=== PATIENT | male | born 2000 | race Caucasian/White ===

== ENCOUNTER 2019-04-28 19:45 | Emergency (ER) | payer OTHER ==
[2019-04-28 19:52] VITALS: PULSE 68; TEMP 97.7
[2019-04-28] MEDS ORDERED: PROPARACAINE 0.5% OPHTH DROPS 15 ML BTL RIGHT EYE STA (19:53)
[2019-04-28] MEDS ORDERED: GENTAMICIN 0.3% OPHTH DROPS 5 ML BTL LEFT EYE STA (20:32)
[2019-04-28] MEDS ORDERED: DIPH,PERTUS(ACELL)TETVAC-LF 0.5 ML VIAL IM ONE (20:32)
--- NOTE | 2019-04-28 21:03 | ED ---
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 Patient force that yesterday after work he began to feel that he had a foreign object sensation in his eye. Patient flushed his eye. His been rubbing it. Patient reports that his eye is red and irritated. Full vaccinated. Not a contact lens user. Denies any other complaints. Systemic: Pt denies fatigue, fever/chills, rash. Pt denies weakness, night sweats, weight loss. Neuro: Pt denies headache, visual disturbances, syncope or pre-syncope. HEENT: Pt denies otalgia, rhinorrhea, pharyngitis or notable lymphadenopathy. Cardiopulmonary: Pt denies chest pain, SOB, heart palpitations, dyspnea on exertion. Abdominal/GI: Pt denies abdominal pain, n/v/d. : Pt denies dysuria, burning w/ urination, frequency/urgency. Denies new onset urinary or bowel incontinence. MSK: Pt denies myalgia, loss of strength or function in extremities. Neuro: Pt denies new onset weakness, paresthesias. - Related Data Previous Rx's Medication Instructions Recorded Gentamicin 0.3% Ophth Soln 2 drops LEFT EYE Q4HR 5 Days #1 04/28/19 [Garamycin 0.3% Ophth Soln] bottle Allergies Allergy/AdvReac Type Severity Reaction Status Date / Time amphetamine aspartate AdvReac Unknown Verified 10/04/15 23:51 [From Adderall] amphetamine sulfate AdvReac Unknown Verified 10/04/15 23:51 [From Adderall] dextroamphetamine saccharate AdvReac Unknown Verified 10/04/15 23:51 [From Adderall] dextroamphetamine sulfate AdvReac Unknown Verified 10/04/15 23:51 [From Adderall] Review of Systems ROS Statement: Those systems with pertinent positive or pertinent negative responses have been documented in the HPI. ROS Other: All systems not noted in ROS Statement are negative. 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 HEENT: NC/AT, trachea midline, neck supple, no lymphadenopathy. Posterior pharynx non erythematous, without exudates. External ears appear normal, without discharge. Mucous membranes moist. Eyes PERRLA, EOM intact. There is no scleral icterus. No pallor noted. Intraocular pressure of right eye average of 24. Intraocular pressure of left eye average of 16./The same revealed a small corneal ulceration at approximately 3:00. No foreign body noted. Cardiopulmonary: RRR, no murmurs, rubs or gallops, no JVD noted. Lungs CTAB in anterior and posterior henry. No peripheral edema. Abdominal exam: Abdomen soft and non-distended. Abdomen non-tender to palpation in all 4 quadrants. Bowel sounds active in LLQ. No hepatosplenomegaly. No ecchymosis Neuro: CN II-XII grossly intact. No nuchal rigidity. No raccon eyes, no freitas sign, no hemotympanum. No cervical spinal tenderness. MSK: No posterior calf tenderness bilaterally, homans sign negative bilaterally. Posterior tibialis and radial pulse +2 bilaterally. Sensation intact in upper and lower extremities. Full active ROM in upper and lower extremities, 5/5 stregnth. 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 Patient force that yesterday after work he began to feel that he had a foreign object sensation in his eye. Patient flushed his eye. His been rubbing it. Patient reports that his eye is red and irritated. Full vaccinated. Not a contact lens user. Denies any other complaints. Pt VSS, afebrile. PHysical exam displayed: ntraocular pressure of right eye average of 24. Intraocular pressure of left eye average of 16./The same revealed a small corneal ulceration at approximately 3:00. No foreign body noted. Patient will be started on gentamicin drops. Patient states the visual acuity is at baseline. We'll close outpatient follow-up with ophthalmology tomorrow. Case discussed with Dr. Palomares. tetanus updated. Disposition Clinical Impression: Corneal ulcer, Elevated IOP Disposition: HOME SELF-CARE Condition: Stable Instructions (If sedation given, give patient instructions): Corneal Ulcer (ED) Additional Instructions: Follow-up with ophthalmology tomorrow. Take eye drops as directed. Return to ER if condition worsens in any way. Prescriptions: Gentamicin 0.3% Ophth Soln [Garamycin 0.3% Ophth Soln] 2 drops LEFT EYE Q4HR 5 Days #1 bottle Is patient prescribed a controlled substance at d/c from ED?: No Referrals: None,Stated [Primary Care Provider] - 1-2 days Christiana Carlos MD [STAFF PHYSICIAN] - 1-2 days
[2019-04-28 21:23] VITALS: BP 126/89; RESP 16
== END 2019-04-28 21:23 | disposition home or self-care (01) ==
LOC: EC 19:45
DX: H16.002 Unspecified corneal ulcer, left eye (principal); H40.052 Ocular hypertension, left eye; Z88.8 Allergy status to other drugs, medicaments and biological substances; Z23 Encounter for immunization
CPT/HCPCS: 90471; 90715; 99283

== ENCOUNTER 2019-09-10 | Emergency (ER) | payer OTHER | END 2019-09-10 09:08 | disposition home or self-care (01) | CPT/HCPCS: 71046; 99284 ==

== ENCOUNTER 2020-05-20 00:13 | Emergency (ER) | payer OTHER ==
[2020-05-20 00:25] VITALS: BP 111/76; PULSE 76; RESP 18; TEMP 98.1
[2020-05-20 00:39] LABS: Glucose,Whole Blood 300 mg/dL (75-99)
--- NOTE | 2020-05-20 00:39 | ED ---
Medical Clearance HPI - General Chief complaint: Medical Clearance Stated complaint: Needs medical clearence Time Seen by Provider: 05/20/20 00:28 Source: patient, RN notes reviewed, old records reviewed Mode of arrival: ambulatory - History of Present Illness Initial comments: 20-year-old male who is a type I diabetic presents emergency room today to urinate needing a note to return to work. He had a hypoglycemic episode. He reports this happened on when he was sweating and recently gave himself insulin injection. 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 He states that he's been diabetic for many years. He states that he is having no symptoms of any complaints at this time and just requests a note to return to work. MD Complaint: medical clearance requested Home medications: Previous Rx's Medication Instructions Recorded Gentamicin 0.3% Ophth Soln 2 drops LEFT EYE Q4HR 5 Days #1 04/28/19 [Garamycin 0.3% Ophth Soln] bottle Allergies/Adverse reactions: Allergies Allergy/AdvReac Type Severity Reaction Status Date / Time amphetamine aspartate AdvReac Unknown Verified 05/20/20 00:25 [From Adderall] amphetamine sulfate AdvReac Unknown Verified 05/20/20 00:25 [From Adderall] dextroamphetamine saccharate AdvReac Unknown Verified 05/20/20 00:25 [From Adderall] dextroamphetamine sulfate AdvReac Unknown Verified 05/20/20 00:25 [From Adderall] Review of Systems ROS Statement: Those systems with pertinent positive or pertinent negative responses have been documented in the HPI. ROS Other: All systems not noted in ROS Statement are negative. Past Medical History Past Medical History: Diabetes Mellitus Additional Past Medical History / Comment(s): hydro cephalous History of Any Multi-Drug Resistant Organisms: None Reported Past Surgical History: No Surgical Hx Reported Past Psychological History: ADD/ADHD Smoking Status: Never smoker Past Alcohol Use History: None Reported Past Drug Use History: None Reported General Exam - General Exam Comments Initial Comments: Pleasant well-appearing 20-year-old male. No distress. Limitations: no limitations General appearance: alert, in no apparent distress Head exam: Present: atraumatic, normocephalic, normal inspection Eye exam: Present: normal appearance, PERRL, EOMI. Absent: scleral icterus, conjunctival injection, periorbital swelling ENT exam: Present: normal exam, mucous membranes moist Neck exam: Present: normal inspection. Absent: tenderness, meningismus, lymphadenopathy Respiratory exam: Present: normal lung sounds bilaterally. Absent: respiratory distress, wheezes, rales, rhonchi, stridor Cardiovascular Exam: Present: regular rate, normal rhythm, normal heart sounds. Absent: systolic murmur, diastolic murmur, rubs, gallop, clicks GI/Abdominal exam: Present: soft, normal bowel sounds. Absent: distended, tenderness, guarding, rebound, rigid Extremities exam: Present: normal inspection, full ROM, normal capillary refill. Absent: tenderness, pedal edema, joint swelling, calf tenderness Back exam: Present: normal inspection Neurological exam: Present: alert, oriented X3, CN II-XII intact Psychiatric exam: Present: normal affect Skin exam: Present: warm, dry, intact, normal color. Absent: rash Course Vital Signs 05/20/20 00:20 Temperature 98.1 F Pulse Rate 76 Respiratory 18 Rate Blood Pressure 111/76 O2 Sat by Pulse 98 Oximetry Medical Decision Making - Medical Decision Making 20-year-old male presents return today for medical clearance. He had a hypoglycemic episode on . No symptoms at this time. Patient given note for work. Advised regular glucose checks and frequent stacking with a strenuous job. Discussed return parameters. - Lab Data Lab Results 05/20/20 Range/Units 00:27 POC Glucose (mg/dL) 300 H (75-99) mg/dL POC Glu Under Trimmer ID Annia Guzman Disposition Clinical Impression: Hypoglycemic episode in patient with diabetes mellitus, Return to work exam Disposition: HOME SELF-CARE Condition: Good Instructions (If sedation given, give patient instructions): Hypoglycemia in a Person with Diabetes (ED) Additional Instructions: Recommended following up with primary care doctor to manage her blood sugar and insulin dosing. He should have your A1c checked. Return to the ED if any alarming signs or symptoms occur. Is patient prescribed a controlled substance at d/c from ED?: No Referrals: None,Stated [Primary Care Provider] - 1-2 days Kwabena Nathan [STAFF PHYSICIAN] - 1-2 days Time of Disposition: 00:39
== END 2020-05-20 00:45 | disposition home or self-care (01) ==
LOC: EC 00:13
DX: Z02.1 Encounter for pre-employment examination (principal); E10.649 Type 1 diabetes mellitus with hypoglycemia without coma; Z88.8 Allergy status to other drugs, medicaments and biological substances
CPT/HCPCS: 36415; 99283

== ENCOUNTER 2020-06-01 13:46 | Emergency (ER) | payer OTHER ==
[2020-06-01 13:52] VITALS: BP 132/82; PULSE 103; RESP 20; TEMP 99.3
[2020-06-01] MEDS ORDERED: KETOROLAC 15 MG/ML 1 ML VIAL IM STA (14:31)
[2020-06-01] MEDS ORDERED: PENICILLIN VK 500MG STARTER 4 TAB BTL PO STA (14:31)
[2020-06-01] MEDS ORDERED: ACET/COD 300 MG/30 MG STARTER PACK 6 TAB BTL PO STA (14:31)
--- NOTE | 2020-06-01 14:32 | ED ---
ENT HPI - General Chief complaint: Dental/Oral Stated complaint: Fever,Chills,Body aches Time Seen by Provider: 06/01/20 14:25 Source: patient Mode of arrival: ambulatory Limitations: no limitations - History of Present Illness Initial comments: 20-year-old male patient presents to the emergency department today for evaluation of right lower dental pain and jaw swelling. States he has had fever and body aches since yesterday morning. States his temperature has been as high as 100.3F oral. Patient states he has very poor dentition. Does not currently have dental insurance her medical insurance. Patient denies any cough or congestion. Denies any nausea or vomiting. Denies trismus or difficulty swallowing. Patient denies any recent rash, chest pain, abdominal pain, diarrhea, constipation, back pain, numbness, tingling, dizziness, weakness, hematuria, dysuria, urinary urgency, urinary frequency, headache, visual changes, or any other complaints. - Related Data Previous Rx's Medication Instructions Recorded Gentamicin 0.3% Ophth Soln 2 drops LEFT EYE Q4HR 5 Days #1 04/28/19 [Garamycin 0.3% Ophth Soln] bottle Ibuprofen [Motrin] 600 mg PO Q8HR PRN #30 tab 06/01/20 Penicillin V Potassium [Pen Vee K] 500 mg PO Q6H #40 tablet 06/01/20 Allergies Allergy/AdvReac Type Severity Reaction Status Date / Time amphetamine aspartate AdvReac Unknown Verified 06/01/20 13:52 [From Adderall] amphetamine sulfate AdvReac Unknown Verified 06/01/20 13:52 [From Adderall] dextroamphetamine saccharate AdvReac Unknown Verified 06/01/20 13:52 [From Adderall] dextroamphetamine sulfate AdvReac Unknown Verified 06/01/20 13:52 [From Adderall] Review of Systems ROS Statement: Those systems with pertinent positive or pertinent negative responses have been documented in the HPI. ROS Other: All systems not noted in ROS Statement are negative. Past Medical History Past Medical History: Diabetes Mellitus Additional Past Medical History / Comment(s): hydro cephalous History of Any Multi-Drug Resistant Organisms: None Reported Past Surgical History: No Surgical Hx Reported Past Psychological History: ADD/ADHD Smoking Status: Never smoker Past Alcohol Use History: None Reported Past Drug Use History: None Reported General Exam Limitations: no limitations General appearance: alert, in no apparent distress, other (This is a well- developed, well-nourished adult male patient in no acute distress. Vital signs upon presentation are temperature 99.3F, pulse 103, respirations 20, blood pressure 132/82, pulse ox 99% on room air.) Eye exam: Present: normal appearance, PERRL, EOMI. Absent: scleral icterus, conjunctival injection, periorbital swelling ENT exam: Present: normal exam, normal oropharynx, mucous membranes moist, other (There is very poor dentition, there is dental caries extensively, no evidence for drainable abscess to the right lower dentition. There is right-sided jaw swelling. No overlying erythema.) Respiratory exam: Present: normal lung sounds bilaterally. Absent: respiratory distress, wheezes, rales, rhonchi, stridor Cardiovascular Exam: Present: regular rate, normal rhythm, normal heart sounds. Absent: systolic murmur, diastolic murmur, rubs, gallop, clicks Neurological exam: Present: alert, oriented X3, CN II-XII intact Psychiatric exam: Present: normal affect, normal mood Skin exam: Present: warm, dry, intact, normal color. Absent: rash Course Vital Signs 06/01/20 13:50 Temperature 99.3 F Pulse Rate 103 H Respiratory 20 Rate Blood Pressure 132/82 O2 Sat by Pulse 99 Oximetry Medical Decision Making - Medical Decision Making 20-year-old male patient presented to the emergency department today for evaluation of right lower jaw swelling and dental pain. Physical examination did reveal swelling to the lower aspect of the right jaw. Does not cross the submental region. No evidence of drainable abscess. No overlying erythema. Patient be discharged with PENVK since he doesn't currently have insurance. He'll be given Tylenol with codeine starter pack. He was given outpatient dental follow-up for lower no insurance. He is instructed about the primary care physician as soon as possible. Return parameters discussed in detail. He verbalizes understanding and agrees with this plan. Disposition Clinical Impression: Dental abscess Disposition: HOME SELF-CARE Condition: Good Instructions (If sedation given, give patient instructions): Dental Abscess (ED), Toothache (ED) Additional Instructions: Take medications as directed. Follow-up with dentistry as soon as possible. Return to the emergency department for any new, worsening, or concerning symptoms. Please follow up with the [facility] dental clinic. [address] [place] [address]. Phone number for new patients or [phone] for existing patients. [facility]. Must pay for x-rays then services are free. Call for an appoitnment. Prescriptions: Ibuprofen [Motrin] 600 mg PO Q8HR PRN #30 tab PRN Reason: Pain Penicillin V Potassium [Pen Vee K] 500 mg PO Q6H #40 tablet Is patient prescribed a controlled substance at d/c from ED?: No Referrals: None,Stated [Primary Care Provider] - 1-2 days Time of Disposition: 14:32
== END 2020-06-01 14:58 | disposition home or self-care (01) ==
LOC: EC 13:46
DX: K04.7 Periapical abscess without sinus (principal); E11.9 Type 2 diabetes mellitus without complications; Z88.8 Allergy status to other drugs, medicaments and biological substances
CPT/HCPCS: 99283; 96372; J1885

== ENCOUNTER 2020-11-30 05:50 | Emergency (ER) | payer OTHER ==
[2020-11-30 06:01] LABS: Glucose,Whole Blood 99 mg/dL (75-99)
[2020-11-30 06:05] VITALS: RESP 18; TEMP 98
--- NOTE | 2020-11-30 06:29 | ED ---
General Adult HPI - General Chief complaint: Seizure Stated complaint: Seizure Time Seen by Provider: 11/30/20 06:08 Source: patient, EMS, RN notes reviewed Mode of arrival: EMS Limitations: no limitations - History of Present Illness Initial comments: This a 20-year-old male presents emergency department via EMS for possible seizure. Patient states that he was not aware of anything. Report from his significant other on the phone states that he was not waking up for work in which she checked his blood sugar and was 51. She attempted to given some candy and he eventually woke up from his blood sugar was 87. There is no tonic-clonic type seizure activity reported. Patient states that he had some similar episode in month or so ago. Patient does admit that he took his insulin last night did not eat dinner. Patient has known type I diabetic. Patient denies headache dizziness blurred vision. We discussed pain shortness breath abdominal pain nausea vomiting diarrhea constipation - Related Data Previous Rx's Medication Instructions Recorded Gentamicin 0.3% Ophth Soln 2 drops LEFT EYE Q4HR 5 Days #1 04/28/19 [Garamycin 0.3% Ophth Soln] bottle Ibuprofen [Motrin] 600 mg PO Q8HR PRN #30 tab 06/01/20 Penicillin V Potassium [Pen Vee K] 500 mg PO Q6H #40 tablet 06/01/20 Allergies Allergy/AdvReac Type Severity Reaction Status Date / Time amphetamine aspartate AdvReac Unknown Verified 11/30/20 06:05 [From Adderall] amphetamine sulfate AdvReac Unknown Verified 11/30/20 06:05 [From Adderall] dextroamphetamine saccharate AdvReac Unknown Verified 11/30/20 06:05 [From Adderall] dextroamphetamine sulfate AdvReac Unknown Verified 11/30/20 06:05 [From Adderall] Review of Systems ROS Statement: Those systems with pertinent positive or pertinent negative responses have been documented in the HPI. ROS Other: All systems not noted in ROS Statement are negative. 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 Absent: scleral icterus, conjunctival injection, periorbital swelling ENT exam: Present: normal exam, normal oropharynx, mucous membranes moist Neck exam: Present: normal inspection, full ROM. Absent: tenderness, meningismus, lymphadenopathy Respiratory exam: Present: normal lung sounds bilaterally. Absent: respiratory distress, wheezes, rales, rhonchi, stridor Cardiovascular Exam: Present: regular rate, normal rhythm, normal heart sounds. Absent: systolic murmur, diastolic murmur, rubs, gallop, clicks GI/Abdominal exam: Present: soft, normal bowel sounds. Absent: distended, tenderness, guarding, rebound, rigid Neurological exam: Present: alert, oriented X3, CN II-XII intact, reflexes normal. Absent: motor sensory deficit Course Vital Signs 11/30/20 05:54 Temperature 98.0 F Pulse Rate 93 Respiratory 18 Rate Blood Pressure 133/90 O2 Sat by Pulse 96 Oximetry Medical Decision Making - Medical Decision Making Patient's labs are unremarkable. Patient did have a hypoglycemic event at home there is no reported seizure like activity most likely related to hypoglycemia patient we discharged stable condition. Patient advised to continue check his blood sugar advised to make sure he eats before taking insulin. - Lab Data Result diagrams: 11/30/20 06:35 11/30/20 06:35 Lab Results 11/30/20 11/30/20 11/30/20 Range/Units 06:00 06:35 06:35 WBC 7.4 (3.8-10.6) k/uL RBC 4.66 (4.30-5.90) m/uL Hgb 13.5 (13.0-17.5) gm/dL Hct 41.5 (39.0-53.0) % MCV 89.0 (80.0-100.0) fL MCH 28.9 (25.0-35.0) pg MCHC 32.4 (31.0-37.0) g/dL RDW 13.2 (11.5-15.5) % Plt Count 428 (150-450) k/uL MPV 7.4 Neutrophils % 66 % Lymphocytes % 20 % Monocytes % 10 % Eosinophils % 1 % Basophils % 1 % Neutrophils # 4.9 (1.3-7.7) k/uL Lymphocytes # 1.5 (1.0-4.8) k/uL Monocytes # 0.7 (0-1.0) k/uL Eosinophils # 0.1 (0-0.7) k/uL Basophils # 0.1 (0-0.2) k/uL Sodium 132 L (137-145) mmol/L Potassium 3.9 (3.5-5.1) mmol/L Chloride 98 (98-107) mmol/L Carbon Dioxide 27 (22-30) mmol/L Anion Gap 7 mmol/L BUN 13 (9-20) mg/dL Creatinine 0.72 (0.66-1.25) mg/dL Est GFR (CKD-EPI)AfAm >90 (>60 ml/min/1.73 sqM) Est GFR (CKD-EPI)NonAf >90 (>60 ml/min/1.73 sqM) Glucose 96 (74-99) mg/dL POC Glucose (mg/dL) 99 (75-99) mg/dL POC Glu Full Fashioned Garment Knitter ID Jonely, Estela Calcium 9.3 (8.4-10.2) mg/dL Total Bilirubin 0.5 (0.2-1.3) mg/dL AST 30 (17-59) U/L ALT 16 (4-49) U/L Alkaline Phosphatase 104 (38-126) U/L Total Protein 6.8 (6.3-8.2) g/dL Albumin 4.2 (3.5-5.0) g/dL Disposition Clinical Impression: Hypoglycemia Disposition: HOME SELF-CARE Condition: Stable Instructions (If sedation given, give patient instructions): Hypoglycemia in a Person with Diabetes (ED) Additional Instructions: Please return to the Emergency Department if symptoms worsen or any other concerns. Is patient prescribed a controlled substance at d/c from ED?: No Referrals: None,Stated [Primary Care Provider] - 1-2 days Time of Disposition: 07:12
[2020-11-30 06:49] LABS: Basophils # (A) 0.1 k/uL (0-0.2); Basophils % (A) 1 %; Eosinophils # (A) 0.1 k/uL (0-0.7); Eosinophils % (A) 1 %; HCT 41.5 % (39.0-53.0); HGB 13.5 gm/dL (13.0-17.5); Lymphocytes # (A) 1.5 k/uL (1.0-4.8); Lymphocytes % (A) 20 %; MCH 28.9 pg (25.0-35.0); MCHC 32.4 g/dL (31.0-37.0); Mean Platelet Volume 7.4; Monocytes # (A) 0.7 k/uL (0-1.0); Monocytes % (A) 10 %; Neutrophils # (A) 4.9 k/uL (1.3-7.7); Neutrophils % (A) 66 %; Platelet Count 428 k/uL (150-450); RBC 4.66 m/uL (4.30-5.90); RDW 13.2 % (11.5-15.5); WBC 7.4 k/uL (3.8-10.6)
--- NOTE | 2020-11-30 07:02 | XR ---
EXAMINATION TYPE: XR chest 2V DATE OF EXAM: 11/30/2020 COMPARISON: 09/10/2019 HISTORY: Shortness of breath TECHNIQUE: Frontal and lateral views of the chest are obtained. FINDINGS: There is no focal air space opacity, pleural effusion, or pneumothorax seen. The cardiac silhouette size is within normal limits. The osseous structures are intact. IMPRESSION: No acute cardiopulmonary process.
[2020-11-30 07:04] LABS: ALT 16 U/L (4-49); AST 30 U/L (17-59); African American GFR (CKD) >90 (>60 ml/min/1.73 sqM); Albumin 4.2 g/dL (3.5-5.0); Alkaline Phosphatase 104 U/L (38-126); Anion Gap 7 mmol/L; Blood Urea Nitrogen 13 mg/dL (9-20); Calcium 9.3 mg/dL (8.4-10.2); Carbon Dioxide 27 mmol/L (22-30); Chloride 98 mmol/L (98-107); Glucose 96 mg/dL (74-99); Non-African American GFR(CKD) >90 (>60 ml/min/1.73 sqM); Potassium 3.9 mmol/L (3.5-5.1); Sodium 132 mmol/L (137-145); Total Bilirubin 0.5 mg/dL (0.2-1.3); Total Protein 6.8 g/dL (6.3-8.2)
[2020-11-30 07:24] VITALS: BP 108/75; PULSE 71
== END 2020-11-30 07:25 | disposition home or self-care (01) ==
LOC: EC 05:50
DX: E10.649 Type 1 diabetes mellitus with hypoglycemia without coma (principal)
CPT/HCPCS: 36415; 71046; 80053; 85025; 99285

== ENCOUNTER 2020-12-02 19:41 | Emergency (ER) | payer OTHER ==
[2020-12-02 20:47] VITALS: RESP 18
[2020-12-02] MEDS ORDERED: SODIUM CHLORIDE 0.9% 2,000 ML IV ONE (20:47)
[2020-12-02] MEDS ORDERED: INSULIN REGULAR 100 UNIT/ML VIAL (IV) IV ONE (20:48)
[2020-12-02 20:51] LABS: Glucose,Whole Blood >600 mg/dL (75-99)
--- NOTE | 2020-12-02 21:30 | ED ---
General Adult HPI - General Chief complaint: Recheck/Abnormal Lab/Rx Stated complaint: Needs insulin Time Seen by Provider: 12/02/20 20:42 Source: patient, RN notes reviewed Mode of arrival: ambulatory Limitations: no limitations - History of Present Illness Initial comments: 20-year-old male presents emergency Department with chief complaint of needing insulin, hyperglycemia. Patient states that he ran insulin today states he did drink a fair she no and does not take any insulin. Patient denies any nausea vomiting diarrhea constipation or fevers or chills. Patient states he otherwise feels fine. He takes long-acting and short-acting. Patient states he is supposed to have an appointment this week with his PCP. - Related Data Previous Rx's Medication Instructions Recorded Gentamicin 0.3% Ophth Soln 2 drops LEFT EYE Q4HR 5 Days #1 04/28/19 [Garamycin 0.3% Ophth Soln] bottle Ibuprofen [Motrin] 600 mg PO Q8HR PRN #30 tab 06/01/20 Penicillin V Potassium [Pen Vee K] 500 mg PO Q6H #40 tablet 06/01/20 Insulin Glargine,Hum.rec.anlog 12 unit SQ DAILY #3 pen 12/02/20 [Lantus Solostar] Insulin NPH Human Isophane See Protocol SQ AC-TID #3 vial 12/02/20 [NovoLIN N] Allergies Allergy/AdvReac Type Severity Reaction Status Date / Time amphetamine aspartate AdvReac Unknown Verified 12/02/20 20:47 [From Adderall] amphetamine sulfate AdvReac Unknown Verified 12/02/20 20:47 [From Adderall] dextroamphetamine saccharate AdvReac Unknown Verified 12/02/20 20:47 [From Adderall] dextroamphetamine sulfate AdvReac Unknown Verified 12/02/20 20:47 [From Adderall] Review of Systems ROS Statement: Those systems with pertinent positive or pertinent negative responses have been documented in the HPI. ROS Other: All systems not noted in ROS Statement are negative. 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 Absent: scleral icterus, conjunctival injection, periorbital swelling ENT exam: Present: normal exam, normal oropharynx, mucous membranes moist Neck exam: Present: normal inspection, full ROM. Absent: tenderness, meningismus, lymphadenopathy Respiratory exam: Present: normal lung sounds bilaterally. Absent: respiratory distress, wheezes, rales, rhonchi, stridor Cardiovascular Exam: Present: regular rate, normal rhythm, normal heart sounds. Absent: systolic murmur, diastolic murmur, rubs, gallop, clicks GI/Abdominal exam: Present: soft, normal bowel sounds. Absent: distended, tenderness, guarding, rebound, rigid Neurological exam: Present: alert Skin exam: Present: warm, dry, intact, normal color. Absent: rash Course Vital Signs 12/02/20 20:44 Temperature 98.2 F Pulse Rate 70 Respiratory 18 Rate Blood Pressure 132/74 O2 Sat by Pulse 99 Oximetry Medical Decision Making - Medical Decision Making 20-year-old presented for hyperglycemia. Patient ran out of his insulin. Patient provided refills. Return parameters were discussed. Patient did have hyperglycemia which was corrected - Lab Data Result diagrams: 12/02/20 Unknown 12/02/20 Unknown Lab Results 12/02/20 12/02/20 12/02/20 Range/Units 20:46 22:23 Unknown WBC 9.1 (3.8-10.6) k/uL RBC 4.62 (4.30-5.90) m/uL Hgb 14.0 (13.0-17.5) gm/dL Hct 42.0 (39.0-53.0) % MCV 90.9 (80.0-100.0) fL MCH 30.2 (25.0-35.0) pg MCHC 33.2 (31.0-37.0) g/dL RDW 12.6 (11.5-15.5) % Plt Count 371 (150-450) k/uL MPV 7.1 Neutrophils % 67 % Lymphocytes % 21 % Monocytes % 7 % Eosinophils % 3 % Basophils % 1 % Neutrophils # 6.1 (1.3-7.7) k/uL Lymphocytes # 1.9 (1.0-4.8) k/uL Monocytes # 0.7 (0-1.0) k/uL Eosinophils # 0.2 (0-0.7) k/uL Basophils # 0.1 (0-0.2) k/uL VBG pH (7.31-7.41) VBG pCO2 (37-51) mmHg VBG HCO3 (24-28) mmol/L Sodium (137-145) mmol/L Potassium (3.5-5.1) mmol/L Chloride (98-107) mmol/L Carbon Dioxide (22-30) mmol/L Anion Gap mmol/L BUN (9-20) mg/dL Creatinine (0.66-1.25) mg/dL Est GFR (CKD-EPI)AfAm (>60 ml/min/1.73 sqM) Est GFR (CKD-EPI)NonAf (>60 ml/min/1.73 sqM) Glucose (74-99) mg/dL POC Glucose (mg/dL) >600 H 113 H (75-99) mg/dL POC Glu Gluten Settling Tender ID Delmar, Guillaume Foreman Plasma Lactic Acid Bakari (0.7-2.0) mmol/L Calcium (8.4-10.2) mg/dL Total Bilirubin (0.2-1.3) mg/dL AST (17-59) U/L ALT (4-49) U/L Alkaline Phosphatase (38-126) U/L Total Protein (6.3-8.2) g/dL Albumin (3.5-5.0) g/dL Lipase (23-300) U/L Urine Color Urine Appearance (Clear) Urine pH (5.0-8.0) Ur Specific [place] (1.001-1.035) Urine Protein (Negative) Urine Glucose (UA) (Negative) Urine Ketones (Negative) Urine Blood (Negative) Urine Nitrite (Negative) Urine Bilirubin (Negative) Urine Urobilinogen (<2.0) mg/dL Ur Leukocyte Esterase (Negative) Acetone, Qual (Negative) 12/02/20 12/02/20 12/02/20 Range/Units Unknown Unknown Unknown WBC (3.8-10.6) k/uL RBC (4.30-5.90) m/uL Hgb (13.0-17.5) gm/dL Hct (39.0-53.0) % MCV (80.0-100.0) fL MCH (25.0-35.0) pg MCHC (31.0-37.0) g/dL RDW (11.5-15.5) % Plt Count (150-450) k/uL MPV Neutrophils % % Lymphocytes % % Monocytes % % Eosinophils % % Basophils % % Neutrophils # (1.3-7.7) k/uL Lymphocytes # (1.0-4.8) k/uL Monocytes # (0-1.0) k/uL Eosinophils # (0-0.7) k/uL Basophils # (0-0.2) k/uL VBG pH 7.42 H (7.31-7.41) VBG pCO2 38 (37-51) mmHg VBG HCO3 25 (24-28) mmol/L Sodium 126 L (137-145) mmol/L Potassium 5.1 (3.5-5.1) mmol/L Chloride 92 L (98-107) mmol/L Carbon Dioxide 26 (22-30) mmol/L Anion Gap 8 mmol/L BUN 10 (9-20) mg/dL Creatinine 0.83 (0.66-1.25) mg/dL Est GFR (CKD-EPI)AfAm >90 (>60 ml/min/1.73 sqM) Est GFR (CKD-EPI)NonAf >90 (>60 ml/min/1.73 sqM) Glucose 593 H* (74-99) mg/dL POC Glucose (mg/dL) (75-99) mg/dL POC Glu Gluten Settling Tender ID Plasma Lactic Acid Bakari (0.7-2.0) mmol/L Calcium 9.7 (8.4-10.2) mg/dL Total Bilirubin 0.4 (0.2-1.3) mg/dL AST 34 (17-59) U/L ALT 19 (4-49) U/L Alkaline Phosphatase 136 H (38-126) U/L Total Protein 7.0 (6.3-8.2) g/dL Albumin 4.5 (3.5-5.0) g/dL Lipase 100 (23-300) U/L Urine Color Colorless Urine Appearance Clear (Clear) Urine pH 7.0 (5.0-8.0) Ur Specific [place] 1.020 (1.001-1.035) Urine Protein Negative (Negative) Urine Glucose (UA) 4+ H (Negative) Urine Ketones Negative (Negative) Urine Blood Negative (Negative) Urine Nitrite Negative (Negative) Urine Bilirubin Negative (Negative) Urine Urobilinogen <2.0 (<2.0) mg/dL Ur Leukocyte Esterase Negative (Negative) Acetone, Qual Negative (Negative) 12/02/20 Range/Units Unknown WBC (3.8-10.6) k/uL RBC (4.30-5.90) m/uL Hgb (13.0-17.5) gm/dL Hct (39.0-53.0) % MCV (80.0-100.0) fL MCH (25.0-35.0) pg MCHC (31.0-37.0) g/dL RDW (11.5-15.5) % Plt Count (150-450) k/uL MPV Neutrophils % % Lymphocytes % % Monocytes % % Eosinophils % % Basophils % % Neutrophils # (1.3-7.7) k/uL Lymphocytes # (1.0-4.8) k/uL Monocytes # (0-1.0) k/uL Eosinophils # (0-0.7) k/uL Basophils # (0-0.2) k/uL VBG pH (7.31-7.41) VBG pCO2 (37-51) mmHg VBG HCO3 (24-28) mmol/L Sodium (137-145) mmol/L Potassium (3.5-5.1) mmol/L Chloride (98-107) mmol/L Carbon Dioxide (22-30) mmol/L Anion Gap mmol/L BUN (9-20) mg/dL Creatinine (0.66-1.25) mg/dL Est GFR (CKD-EPI)AfAm (>60 ml/min/1.73 sqM) Est GFR (CKD-EPI)NonAf (>60 ml/min/1.73 sqM) Glucose (74-99) mg/dL POC Glucose (mg/dL) (75-99) mg/dL POC Glu Gluten Settling Tender ID Plasma Lactic Acid Bakari 1.0 (0.7-2.0) mmol/L Calcium (8.4-10.2) mg/dL Total Bilirubin (0.2-1.3) mg/dL AST (17-59) U/L ALT (4-49) U/L Alkaline Phosphatase (38-126) U/L Total Protein (6.3-8.2) g/dL Albumin (3.5-5.0) g/dL Lipase (23-300) U/L Urine Color Urine Appearance (Clear) Urine pH (5.0-8.0) Ur Specific [place] (1.001-1.035) Urine Protein (Negative) Urine Glucose (UA) (Negative) Urine Ketones (Negative) Urine Blood (Negative) Urine Nitrite (Negative) Urine Bilirubin (Negative) Urine Urobilinogen (<2.0) mg/dL Ur Leukocyte Esterase (Negative) Acetone, Qual (Negative) Disposition Clinical Impression: Hyperglycemia, Medication refill Disposition: HOME SELF-CARE Condition: Stable Instructions (If sedation given, give patient instructions): Diabetic Hyperglycemia (ED) Additional Instructions: Please return to the Emergency Department if symptoms worsen or any other concerns. Prescriptions: Insulin Glargine,Hum.rec.anlog [Lantus Solostar] 12 unit SQ DAILY #3 pen Insulin NPH Human Isophane [NovoLIN N] See Protocol SQ AC-TID #3 vial Is patient prescribed a controlled substance at d/c from ED?: No Referrals: [facility] [Primary Care Provider] - 1-2 days
[2020-12-02 21:34] LABS: VBG PH 7.42 (7.31-7.41)
[2020-12-02 21:35] LABS: Basophils # (A) 0.1 k/uL (0-0.2); Basophils % (A) 1 %; Eosinophils # (A) 0.2 k/uL (0-0.7); Eosinophils % (A) 3 %; Lymphocytes # (A) 1.9 k/uL (1.0-4.8); Lymphocytes % (A) 21 %; MCH 30.2 pg (25.0-35.0); MCHC 33.2 g/dL (31.0-37.0); MCV 90.9 fL (80.0-100.0); Mean Platelet Volume 7.1; Monocytes # (A) 0.7 k/uL (0-1.0); Monocytes % (A) 7 %; Neutrophils # (A) 6.1 k/uL (1.3-7.7); Neutrophils % (A) 67 %; Platelet Count 371 k/uL (150-450); RBC 4.62 m/uL (4.30-5.90); RDW 12.6 % (11.5-15.5); WBC 9.1 k/uL (3.8-10.6)
[2020-12-02 21:41] LABS: Appearance,Urine Clear (Clear); Bilirubin,Urine Negative (Negative); Blood,Urine Negative (Negative); Color,Urine Colorless; Glucose,Urine (UA) 4+ (Negative); Ketones,Urine Negative (Negative); Leukocyte Esterase,Urine Negative (Negative); Nitrite,Urine Negative (Negative); Protein,Urine Negative (Negative); Urobilinogen,Urine <2.0 mg/dL (<2.0)
[2020-12-02 21:54] LABS: ALT 19 U/L (4-49); AST 34 U/L (17-59); African American GFR (CKD) >90 (>60 ml/min/1.73 sqM); Albumin 4.5 g/dL (3.5-5.0); Alkaline Phosphatase 136 U/L (38-126); Anion Gap 8 mmol/L; Blood Urea Nitrogen 10 mg/dL (9-20); Calcium 9.7 mg/dL (8.4-10.2); Carbon Dioxide 26 mmol/L (22-30); Chloride 92 mmol/L (98-107); Lipase 100 U/L (23-300); Non-African American GFR(CKD) >90 (>60 ml/min/1.73 sqM); Potassium 5.1 mmol/L (3.5-5.1); Sodium 126 mmol/L (137-145); Total Bilirubin 0.4 mg/dL (0.2-1.3)
[2020-12-02 21:56] LABS: Glucose 593 mg/dL (74-99)
[2020-12-02 22:25] LABS: Glucose,Whole Blood 113 mg/dL (75-99)
[2020-12-02 23:07] LABS: Glucose,Whole Blood 55 mg/dL (75-99)
[2020-12-02 23:12] VITALS: BP 127/67; PULSE 77; TEMP 99
== END 2020-12-02 23:12 | disposition home or self-care (01) ==
LOC: EC 19:41
DX: Z76.0 Encounter for issue of repeat prescription (principal); E11.65 Type 2 diabetes mellitus with hyperglycemia; Z79.4 Long term (current) use of insulin
CPT/HCPCS: 36415; 80053; 81003; 82009; 82803; 83605; 83690; 85025; 96360; 96361; 99282

== ENCOUNTER 2022-11-20 23:13 | Emergency (ER) | payer OTHER ==
[2022-11-20 23:19] VITALS: RESP 20
[2022-11-20] MEDS ORDERED: PROPARACAINE 0.5% OPHTH DROPS 15 ML BTL LEFT EYE STA (23:26)
[2022-11-20] MEDS ORDERED: FLUORESCEIN STRIPS 1 MG STRIP LEFT EYE ONE (23:26)
[2022-11-21] MEDS ORDERED: SULFACETAMIDE SOD 10% OPHTH DROPS 15 ML BTL LEFT EYE SCH
--- NOTE | 2022-11-21 | ED ---
Eye Problem HPI - General Chief complaint: Eye Problems Stated complaint: [facility] - Eye Irritation Time Seen by Provider: 11/20/22 23:20 Source: patient Mode of arrival: ambulatory Limitations: no limitations - History of Present Illness Initial comments: Patient is a 22-year-old male presenting with chief complaint of left eye pain. He admits to foreign body sensation. Also admits to increased tearing. This started while at work. He was working with metal when he had the sudden onset sensation. He states he was wearing safety glasses. No vision changes. No discharge. Patient does not wear contact lenses. - Related Data Previous Rx's Medication Instructions Recorded Gentamicin 0.3% Ophth Soln 2 drops LEFT EYE Q4HR 5 Days #1 04/28/19 [Garamycin 0.3% Ophth Soln] bottle Ibuprofen [Motrin] 600 mg PO Q8HR PRN #30 tab 06/01/20 Penicillin V Potassium [Pen Vee K] 500 mg PO Q6H #40 tablet 06/01/20 Insulin Glargine,Hum.rec.anlog 12 unit SQ DAILY #3 pen 12/02/20 [Lantus Solostar] Insulin NPH Human Isophane See Protocol SQ AC-TID #3 vial 12/02/20 [NovoLIN N] Allergies Allergy/AdvReac Type Severity Reaction Status Date / Time amphetamine aspartate AdvReac Unknown Verified 11/20/22 23:19 [From Adderall] amphetamine sulfate AdvReac Unknown Verified 11/20/22 23:19 [From Adderall] dextroamphetamine saccharate AdvReac Unknown Verified 11/20/22 23:19 [From Adderall] dextroamphetamine sulfate AdvReac Unknown Verified 11/20/22 23:19 [From Adderall] Review of Systems ROS Statement: Those systems with pertinent positive or pertinent negative responses have been documented in the HPI. ROS Other: All systems not noted in ROS Statement are negative. 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 Absent: periorbital swelling, periorbital tenderness Neck exam: Present: normal inspection, full ROM Neurological exam: Present: alert, oriented X3, CN II-XII intact Psychiatric exam: Present: normal affect, normal mood Skin exam: Present: warm, dry, intact, normal color. Absent: rash Course Vital Signs 11/20/22 23:15 Temperature 97.6 F Pulse Rate 60 Respiratory 20 Rate Blood Pressure 124/83 O2 Sat by Pulse 99 Oximetry Medical Decision Making - Medical Decision Making Was pt. sent in by a medical professional or institution (, PA, BITUMINOUS DISTRIBUTOR OPERATOR, urgent care, hospital, or custodial...) When possible be specific @ -No Did you speak to anyone other than the patient for history (EMS, parent, family, police, friend...)? What history was obtained from this source @ -No Did you review nursing and triage notes (agree or disagree)? Why? @ -I reviewed and agree with nursing and triage notes Were old charts reviewed (outside hosp., previous admission, EMS record, old EKG, old radiological studies, urgent care reports/EKG's, custodial records)? Report findings @ -No old charts were reviewed Differential Diagnosis (chest pain, altered mental status, abdominal pain women, abdominal pain men, vaginal bleeding, weakness, fever, dyspnea, syncope, headache, dizziness, GI bleed, back pain, seizure, CVA, palpatations, mental health, musculoskeletal)? @ -Differential includes foreign body, corneal abrasion, corneal ulcer, this is not an all inclusive list EKG interpreted by me (3pts min.). @ -As above X-rays interpreted by me (1pt min.). @ -None done CT interpreted by me (1pt min.). @ -None done U/S interpreted by me (1pt. min.). @ -None done What testing was considered but not performed or refused? (CT, X-rays, U/S, labs)? Why? @ -None What meds were considered but not given or refused? Why? @ -None Did you discuss the management of the patient with other professionals (professionals i.e. , PA, BITUMINOUS DISTRIBUTOR OPERATOR, lab, RT, psych nurse, social work specialist, steel loader, teacher, correctional officer captain, supervisor case loading)? Give summary @ -No Was smoking cessation discussed for >3mins.? @ -No Was critical care preformed (if so, how long)? @ -No Were there social determinants of health that impacted care today? How? (Homelessness, low income, unemployed, alcoholism, drug addiction, transportation, low edu. Level, literacy, decrease access to med. care, group home, rehab)? @ -No Was there de-escalation of care discussed even if they declined (Discuss DNR or withdrawal of care, Hospice)? DNR status @ -No What co-morbidities impacted this encounter? (DM, HTN, Smoking, COPD, CAD, Cancer, CVA, ARF, Chemo, Hep., AIDS, mental health diagnosis, sleep apnea, morbid obesity)? @ -None Was patient admitted / discharged? Hospital course, mention meds given and route, prescriptions, significant lab abnormalities, going to OR and other pertinent info. @ -Patient is a 22-year-old male presenting with chief complaint of pain to the left eye and foreign body sensation that started at work today. No gross abnormality. Fluorescein staining and Wood's lamp examination shows corneal abrasion, no obvious foreign body noted on inspection or with eyelid inversion. Patient is started on sulfacetamide eyedrops. Instructed to follow-up with ophthalmology. Follow-up with PCP. Report back to ER with any new or worsening symptoms. Discussed return parameters and answered all questions. Patient conveyed verbal understanding and agreed to the plan. I discussed this case in detail with my attending Dr. Astorga Undiagnosed new problem with uncertain prognosis? @ -No Drug Therapy requiring intensive monitoring for toxicity (Heparin, Nitro, Insulin, Cardizem)? @ -No Were any procedures done? @ -No Diagnosis/symptom? @ -Corneal abrasion Acute, or Chronic, or Acute on Chronic? @ -Acute Uncomplicated (without systemic symptoms) or Complicated (systemic symptoms)? @ -Uncomplicated Side effects of treatment? @ -No Exacerbation, Progression, or Severe Exacerbation? @ -No Poses a threat to life or bodily function? How? (Chest pain, [place], [place], pneumonia, PE, COPD, DKA, ARF, appy, cholecystitis, CVA, Diverticulitis, Homicidal, Suicidal, threat to staff... and all critical care pts) @ -No Disposition Clinical Impression: Corneal abrasion Disposition: HOME SELF-CARE Condition: Good Instructions (If sedation given, give patient instructions): Corneal Abrasion (ED) Additional Instructions: Follow-up with PCP and requirements analyst. Report back to ER with any new or worsening symptoms. Apply antibiotic eyedrops 4 times daily for 5 days Is patient prescribed a controlled substance at d/c from ED?: No Referrals: Brittany Beckwith MD [Primary Care Provider] - 1-2 days Christiana Carlos MD [STAFF PHYSICIAN] - 1-2 days Time of Disposition: 23:59
[2022-11-21 00:38] VITALS: BP 109/68; PULSE 68; TEMP 98.5
== END 2022-11-21 01:05 | disposition home or self-care (01) ==
LOC: EC 23:13
DX: S05.02XA Injury of conjunctiva and corneal abrasion without foreign body, left eye, initial encounter (principal); E11.9 Type 2 diabetes mellitus without complications; Z79.4 Long term (current) use of insulin; Z88.8 Allergy status to other drugs, medicaments and biological substances; X58.XXXA Exposure to other specified factors, initial encounter
CPT/HCPCS: 99283

== ENCOUNTER 2023-04-10 20:42 | Inpatient (IN) | payer OTHER ==
[2023-04-10 20:54] LABS: Glucose,Whole Blood 161 mg/dL (70-110)
[2023-04-10] MEDS ORDERED: SODIUM CHLORIDE 0.9% 1,000 ML IV ONE (21:15)
[2023-04-10] MEDS ORDERED: LORazepam 2 MG/ML INJ IV STA ×2 (21:38→22:08)
--- NOTE | 2023-04-10 21:43 | XR ---
EXAMINATION TYPE: XR chest 2V DATE OF EXAM: 04/10/2023 9:35 PM CLINICAL INDICATION:Male, 23 years old with history of altered mental status. COMPARISON: Chest radiographs from TECHNIQUE: XR chest 2V Frontal and lateral views of the chest. FINDINGS: Lungs/Pleura: Hazy opacification adjacent to the right heart border. No evidence of pleural effusion or pneumothorax. Pulmonary vascularity: Unremarkable. Heart/mediastinum: Cardiomediastinal silhouette is unremarkable. Musculoskeletal: No acute osseous pathology. IMPRESSION: Right middle lung airspace disease, likely related to underlying infectious/inflammatory process.
--- NOTE | 2023-04-10 21:49 | ED ---
Altered Mental Status HPI - General Chief Complaint: Altered Mental Status Stated Complaint: Diabetic Complications Time Seen by Provider: 04/10/23 21:13 Source: EMS Mode of arrival: EMS - History of Present Illness Initial Comments: Olayinka is a 23-year-old male with a history of type 1 diabetes diagnosed 7 years ago. Patient is brought to the ER today unresponsive after an apparent seizure at his home. Parents at bedside reports that patient has lost his insurance and has not had access to insulin for 1-2 weeks. He found multiple insulin syringes in his trailer that he lives in injected all that insulin and one vial has been using that, he has also been using long-acting insulin. Parents report that twice in the past week he has episodes of seizure-like activity at work which they attributed to hypoglycemia though the patient has not been checking his sugars. Parents report that he reuses needles regularly, he uses the same needle to poke his finger to check sugars. He also uses the same site on the posterior arms for insulin injections every time he is developed very large chronic hematomas in those sites. - Related Data Previous Rx's Medication Instructions Recorded Gentamicin 0.3% Ophth Soln 2 drops LEFT EYE Q4HR 5 Days #1 04/28/19 [Garamycin 0.3% Ophth Soln] bottle Ibuprofen [Motrin] 600 mg PO Q8HR PRN #30 tab 06/01/20 Penicillin V Potassium [Pen Vee K] 500 mg PO Q6H #40 tablet 06/01/20 Insulin Glargine,Hum.rec.anlog 12 unit SQ DAILY #3 pen 12/02/20 [Lantus Solostar] Insulin NPH Human Isophane See Protocol SQ AC-TID #3 vial 12/02/20 [NovoLIN N] Allergies Allergy/AdvReac Type Severity Reaction Status Date / Time amphetamine aspartate AdvReac Unknown Verified 04/10/23 20:52 [From Adderall] amphetamine sulfate AdvReac Unknown Verified 04/10/23 20:52 [From Adderall] dextroamphetamine saccharate AdvReac Unknown Verified 04/10/23 20:52 [From Adderall] dextroamphetamine sulfate AdvReac Unknown Verified 04/10/23 20:52 [From Adderall] Review of Systems ROS Statement: Those systems with pertinent positive or pertinent negative responses have been documented in the HPI. ROS Other: All systems not noted in ROS Statement are negative. Past Medical History Past Medical History: Diabetes Mellitus Additional Past Medical History / Comment(s): hydro cephalous History of Any Multi-Drug Resistant Organisms: None Reported Past Surgical History: No Surgical Hx Reported Past Psychological History: ADD/ADHD Smoking Status: Never smoker Past Alcohol Use History: None Reported Past Drug Use History: None Reported General Exam Limitations: altered mental status General appearance: obtunded Head exam: Present: atraumatic, normocephalic Eye exam: Present: PERRL ENT exam: Present: normal exam Neck exam: Absent: lymphadenopathy Respiratory exam: Absent: respiratory distress Cardiovascular Exam: Present: regular rate GI/Abdominal exam: Present: soft Rectal exam: Present: deferred Extremities exam: Present: other (Granuloma like lesions on posterior of both arms - related to repeat injections) Back exam: Present: normal inspection Neurological exam: Present: other (Responds to painful stimuli) Skin exam: Present: warm, dry Course Vital Signs 04/10/23 20:44 Temperature 98.2 F Pulse Rate 81 Respiratory 20 Rate Blood Pressure 132/92 O2 Sat by Pulse 100 Oximetry Medical Decision Making - Medical Decision Making Was pt. sent in by a medical professional or institution (, PA, EMBEDDED SOFTWARE PROGRAMMER, urgent care, hospital, or snf...) When possible be specific @ -No Did you speak to anyone other than the patient for history (EMS, parent, family, police, friend...)? What history was obtained from this source @ -EMS, family Did you review nursing and triage notes (agree or disagree)? Why? @ -I reviewed and agree with nursing and triage notes Were old charts reviewed (outside hosp., previous admission, EMS record, old EKG, old radiological studies, urgent care reports/EKG's, snf records)? Report findings @ -Previous admissions were reviewed Differential Diagnosis (chest pain, altered mental status, abdominal pain women, abdominal pain men, vaginal bleeding, weakness, fever, dyspnea, syncope, headache, dizziness, GI bleed, back pain, seizure, CVA, palpatations, mental hea lth, musculoskeletal)? @ -Differential Altered Mental Status: Hypoglycemia, DKA, hypercapnia, ETOH, overdose, CO poisoning, trauma, myxedema coma, HTN encephalopathy, infection, encephalitis, psychosis, intercranial hemorrhage, hepatic encephalopathy, meningitis, CVA, this is not meant to be an all-inclusive list EKG interpreted by me (3pts min.). @ -As above X-rays interpreted by me (1pt min.). @ -X-ray interpreted by me as having a right middle lobe pneumonia CT interpreted by me (1pt min.). @ -Interpreted by me as having mild hydrocephalus however did not see previous for comparison received no acute bleeds or masses U/S interpreted by me (1pt. min.). @ -None done What testing was considered but not performed or refused? (CT, X-rays, U/S, labs)? Why? @ -None What meds were considered but not given or refused? Why? @ -None Did you discuss the management of the patient with other professionals (professionals i.e. , PA, EMBEDDED SOFTWARE PROGRAMMER, lab, RT, psych nurse, social security assessor, civil attorney, teacher, delinquency prevention officer, assistant case manager)? Give summary @ -No Was smoking cessation discussed for >3mins.? @ -No Was critical care preformed (if so, how long)? @ -No Were there social determinants of health that impacted care today? How? (Homelessness, low income, unemployed, alcoholism, drug addiction, transportation, low edu. Level, literacy, decrease access to med. care, fpc, rehab)? @ -No insurance, lack of access to medical care inability to afford medications Was there de-escalation of care discussed even if they declined (Discuss DNR or withdrawal of care, Hospice)? DNR status @ -No What co-morbidities impacted this encounter? (DM, HTN, Smoking, COPD, CAD, Cancer, CVA, ARF, Chemo, Hep., AIDS, mental health diagnosis, sleep apnea, morbid obesity)? @ -Diabetes Was patient admitted / discharged? Hospital course, mention meds given and route, prescriptions, significant lab abnormalities, going to OR and other pertinent info. @ -Admit The patient was seen and evaluated patient appeared to be postictal upon arrival. [id number] glucose is 161. labs, x-ray and CT of the head were o btained X-ray reveals pneumonia on the right middle lobe I suspect this is aspiration pneumonia secondary previous seizure Patient became agitated CT and received 2 mg IV Ativan and then was able to cooperate with CT, CT reveals chronic hydrocephalus no change from previous White count is 20 The patient has metabolic encephalopathy, right middle lobe pneumonia leukocytosis recall requiring IV antibiotics I do feel he warrants admission to the hospital for IV antibiotics and evaluation by neurology for recurrent seizures which may be related to hypoglycemia. Patient's family was agreeable to this and the patient was admitted Undiagnosed new problem with uncertain prognosis? @ -No Drug Therapy requiring intensive monitoring for toxicity (Heparin, Nitro, Insulin, Cardizem)? @ -No Were any procedures done? @ -No Diagnosis/symptom? @ -Metabolic encephalopathy Acute, or Chronic, or Acute on Chronic? @ -Acute Uncomplicated (without systemic symptoms) or Complicated (systemic symptoms)? @ -Complicated Side effects of treatment? @ -No Exacerbation, Progression, or Severe Exacerbation? @ -No Poses a threat to life or bodily function? How? (Chest pain, [place], [place], pneumonia, PE, COPD, DKA, ARF, appy, cholecystitis, CVA, Diverticulitis, Homicidal, Suicidal, threat to staff... and all critical care pts) @ -No - Lab Data Result diagrams: 04/10/23 22:10 04/10/23 22:12 Lab Results 04/10/23 04/10/23 04/10/23 Range/Units 20:52 21:15 22:00 WBC (3.8-10.6) k/uL RBC (4.30-5.90) m/uL Hgb (13.0-17.5) gm/dL Hct (39.0-53.0) % MCV (80.0-100.0) fL MCH (25.0-35.0) pg MCHC (31.0-37.0) g/dL RDW (11.5-15.5) % Plt Count (150-450) k/uL MPV Neutrophils % % Lymphocytes % % Monocytes % % Eosinophils % % Basophils % % Neutrophils # (1.3-7.7) k/uL Lymphocytes # (1.0-4.8) k/uL Monocytes # (0-1.0) k/uL Eosinophils # (0-0.7) k/uL Basophils # (0-0.2) k/uL PT (10.0-12.5) sec INR (<1.2) APTT (22.0-30.0) sec Sodium (137-145) mmol/L Potassium (3.5-5.1) mmol/L Chloride (98-107) mmol/L Carbon Dioxide (22-30) mmol/L Anion Gap mmol/L BUN (9-20) mg/dL Creatinine (0.66-1.25) mg/dL Est GFR (CKD-EPI)AfAm (>60 ml/min/1.73 sqM) Est GFR (CKD-EPI)NonAf (>60 ml/min/1.73 sqM) Glucose (74-99) mg/dL POC Glucose (mg/dL) 161 H 103 (70-110) mg/dL POC Glu Control Integration Engineer MAKENZIE Sulema [place] Calcium (8.4-10.2) mg/dL Total Bilirubin (0.2-1.3) mg/dL AST (17-59) U/L ALT (4-49) U/L Alkaline Phosphatase (38-126) U/L Troponin I 0.019 (0.000-0.034) ng/mL Total Protein (6.3-8.2) g/dL Albumin (3.5-5.0) g/dL Serum Alcohol mg/dL Coronavirus (PCR) (Not Detectd) 04/10/23 04/10/23 04/10/23 Range/Units 22:10 22:10 22:12 WBC 20.5 H (3.8-10.6) k/uL RBC 4.39 (4.30-5.90) m/uL Hgb 13.6 (13.0-17.5) gm/dL Hct 39.9 (39.0-53.0) % MCV 91.0 (80.0-100.0) fL MCH 31.0 (25.0-35.0) pg MCHC 34.1 (31.0-37.0) g/dL RDW 12.5 (11.5-15.5) % Plt Count 350 (150-450) k/uL MPV 7.3 Neutrophils % 90 % Lymphocytes % 4 % Monocytes % 4 % Eosinophils % 0 % Basophils % 0 % Neutrophils # 18.5 H (1.3-7.7) k/uL Lymphocytes # 0.9 L (1.0-4.8) k/uL Monocytes # 0.9 (0-1.0) k/uL Eosinophils # 0.1 (0-0.7) k/uL Basophils # 0.0 (0-0.2) k/uL PT 10.1 (10.0-12.5) sec INR 0.9 (<1.2) APTT 25.1 (22.0-30.0) sec Sodium 132 L (137-145) mmol/L Potassium 4.1 (3.5-5.1) mmol/L Chloride 100 (98-107) mmol/L Carbon Dioxide 24 (22-30) mmol/L Anion Gap 8 mmol/L BUN 7 L (9-20) mg/dL Creatinine 0.65 L (0.66-1.25) mg/dL Est GFR (CKD-EPI)AfAm >90 (>60 ml/min/1.73 sqM) Est GFR (CKD-EPI)NonAf >90 (>60 ml/min/1.73 sqM) Glucose 88 (74-99) mg/dL POC Glucose (mg/dL) (70-110) mg/dL POC Glu Control Integration Engineer ID Calcium 8.7 (8.4-10.2) mg/dL Total Bilirubin 0.5 (0.2-1.3) mg/dL AST 30 (17-59) U/L ALT 16 (4-49) U/L Alkaline Phosphatase 70 (38-126) U/L Troponin I (0.000-0.034) ng/mL Total Protein 5.6 L (6.3-8.2) g/dL Albumin 3.4 L (3.5-5.0) g/dL Serum Alcohol <10 mg/dL Coronavirus (PCR) (Not Detectd) 04/10/23 Range/Units 22:12 WBC (3.8-10.6) k/uL RBC (4.30-5.90) m/uL Hgb (13.0-17.5) gm/dL Hct (39.0-53.0) % MCV (80.0-100.0) fL MCH (25.0-35.0) pg MCHC (31.0-37.0) g/dL RDW (11.5-15.5) % Plt Count (150-450) k/uL MPV Neutrophils % % Lymphocytes % % Monocytes % % Eosinophils % % Basophils % % Neutrophils # (1.3-7.7) k/uL Lymphocytes # (1.0-4.8) k/uL Monocytes # (0-1.0) k/uL Eosinophils # (0-0.7) k/uL Basophils # (0-0.2) k/uL PT (10.0-12.5) sec INR (<1.2) APTT (22.0-30.0) sec Sodium (137-145) mmol/L Potassium (3.5-5.1) mmol/L Chloride (98-107) mmol/L Carbon Dioxide (22-30) mmol/L Anion Gap mmol/L BUN (9-20) mg/dL Creatinine (0.66-1.25) mg/dL Est GFR (CKD-EPI)AfAm (>60 ml/min/1.73 sqM) Est GFR (CKD-EPI)NonAf (>60 ml/min/1.73 sqM) Glucose (74-99) mg/dL POC Glucose (mg/dL) (70-110) mg/dL POC Glu Control Integration Engineer ID Calcium (8.4-10.2) mg/dL Total Bilirubin (0.2-1.3) mg/dL AST (17-59) U/L ALT (4-49) U/L Alkaline Phosphatase (38-126) U/L Troponin I (0.000-0.034) ng/mL Total Protein (6.3-8.2) g/dL Albumin (3.5-5.0) g/dL Serum Alcohol mg/dL Coronavirus (PCR) Not Detected (Not Detectd) - EKG Data -: EKG Interpreted by Me EKG Comments: EKG interpreted by me EKG ordered as part of the altered mental status workup, EKG obtained at 2051 rate is 70 rhythm is sinus, normal axis, AL 142, QS 109, QT 08/29/1995 there is no acute ST elevations or depressions no evidence of acute ischemia or infarction. Disposition Clinical Impression: Altered mental status, Delirium due to general medical condition, Aspiration pneumonia Disposition: ADMITTED IP TO THIS HOSP
[2023-04-10 22:01] LABS: Glucose,Whole Blood 103 mg/dL (70-110)
--- NOTE | 2023-04-10 22:20 | CT ---
EXAMINATION TYPE: CT brain wo con CT DLP: 1425.4 mGycm, Automated exposure control for dose reduction was used. DATE OF EXAM: 04/10/2023 10:01 PM COMPARISON: CT brain 04/03/2010.. CLINICAL INDICATION:Male, 23 years old with history of Altered mental status. TECHNIQUE: Brain: Axial CT images of the brain were obtained with coronal and sagittal reformats created and rev iewed. Contrast used: None. Oral contrast used: None. FINDINGS: Brain: Extra-axial spaces: No abnormal extra-axial fluid collections. Ventricular system: There is stable prominence of the lateral and third ventricles for the patient's age. The fourth ventricle is within normal limits. Cerebral parenchyma: No acute intraparenchymal hemorrhage or mass effect. The barbosa-white junction is well differentiated. Cerebellum: Unremarkable. Mass effect: No evidence of midline shift. Intracranial vasculature: unremarkable Soft tissues: Normal. Calvarium/osseous structures: No acute process. Paranasal sinuses and mastoid air cells: Mucosal thickening is involving the maxillary sinuses and ai r cells. Visualized orbits: Orbital contents are intact. IMPRESSION: 1. 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 2. Paranasal sinus disease.
[2023-04-10 22:31] LABS: Basophils % (A) 0 %; Eosinophils # (A) 0.1 k/uL (0-0.7); Eosinophils % (A) 0 %; HCT 39.9 % (39.0-53.0); HGB 13.6 gm/dL (13.0-17.5); Lymphocytes # (A) 0.9 k/uL (1.0-4.8); Lymphocytes % (A) 4 %; MCHC 34.1 g/dL (31.0-37.0); Mean Platelet Volume 7.3; Monocytes # (A) 0.9 k/uL (0-1.0); Monocytes % (A) 4 %; Neutrophils # (A) 18.5 k/uL (1.3-7.7); Neutrophils % (A) 90 %; Platelet Count 350 k/uL (150-450); RBC 4.39 m/uL (4.30-5.90); RDW 12.5 % (11.5-15.5); WBC 20.5 k/uL (3.8-10.6)
[2023-04-10 22:43] LABS: ALT 16 U/L (4-49); AST 30 U/L (17-59); African American GFR (CKD) >90 (>60 ml/min/1.73 sqM); Albumin 3.4 g/dL (3.5-5.0); Alcohol <10 mg/dL; Alkaline Phosphatase 70 U/L (38-126); Anion Gap 8 mmol/L; Blood Urea Nitrogen 7 mg/dL (9-20); Calcium 8.7 mg/dL (8.4-10.2); Carbon Dioxide 24 mmol/L (22-30); Chloride 100 mmol/L (98-107); Glucose 88 mg/dL (74-99); Non-African American GFR(CKD) >90 (>60 ml/min/1.73 sqM); Potassium 4.1 mmol/L (3.5-5.1); Sodium 132 mmol/L (137-145); Total Bilirubin 0.5 mg/dL (0.2-1.3); Total Protein 5.6 g/dL (6.3-8.2)
[2023-04-10 22:45] LABS: INR 0.9 (<1.2); Partial Thromboplastin Time 25.1 sec (22.0-30.0); Prothrombin Time 10.1 sec (10.0-12.5)
[2023-04-10] MEDS: AMPICILLIN-SULBACTAM 3 GM in SODIUM CHLORIDE 0.9% 100 ML IVPB SCH (23:03)
[2023-04-10] MEDS ORDERED: NALOXONE 0.4 MG/ML 1 ML VIAL IV PRN (23:39)
[2023-04-11] MEDS: AMPICILLIN-SULBACTAM 3 GM in SODIUM CHLORIDE 0.9% 100 ML IVPB SCH ×4 (04:44→22:49)
[2023-04-11 07:03] LABS: Glucose,Whole Blood 105 mg/dL (70-110)
[2023-04-11] MEDS: FAMOTIDINE 20 MG/2 ML VIAL IV SCH ×2 (08:08→20:57)
[2023-04-11 09:25] LABS: Basophils # (A) 0.1 k/uL (0-0.2); Basophils % (A) 0 %; Eosinophils # (A) 0.2 k/uL (0-0.7); Eosinophils % (A) 1 %; HCT 37.6 % (39.0-53.0); HGB 12.9 gm/dL (13.0-17.5); Lymphocytes # (A) 1.6 k/uL (1.0-4.8); Lymphocytes % (A) 9 %; MCH 31.4 pg (25.0-35.0); MCHC 34.3 g/dL (31.0-37.0); MCV 91.4 fL (80.0-100.0); Mean Platelet Volume 7.2; Monocytes % (A) 6 %; Neutrophils # (A) 13.6 k/uL (1.3-7.7); Neutrophils % (A) 82 %; Platelet Count 371 k/uL (150-450); RBC 4.11 m/uL (4.30-5.90); RDW 12.5 % (11.5-15.5); WBC 16.7 k/uL (3.8-10.6)
[2023-04-11 09:39] LABS: African American GFR (CKD) >90 (>60 ml/min/1.73 sqM); Anion Gap 8 mmol/L; Blood Urea Nitrogen 7 mg/dL (9-20); Calcium 8.7 mg/dL (8.4-10.2); Carbon Dioxide 20 mmol/L (22-30); Chloride 101 mmol/L (98-107); Glucose 190 mg/dL (74-99); Magnesium 1.8 mg/dL (1.6-2.3); Non-African American GFR(CKD) >90 (>60 ml/min/1.73 sqM); Potassium 4.7 mmol/L (3.5-5.1); Sodium 129 mmol/L (137-145)
[2023-04-11 12:04] LABS: Glucose,Whole Blood 258 mg/dL (70-110)
--- NOTE | 2023-04-11 12:13 | P.HPIM ---
History of Present Illness This is a pleasant 23 years old male with past medical history of insulin- dependent diabetes mellitus Presents because of altered mental status secondary to hypoglycemia. As per records patient was found on the ground and when EMS arrived his sugar was low at 62 and he received D50 by him and his sugar improved 161. Patient reported to have history of seizure secondary to hypoglycemia Patient himself is fully awake and oriented to time place and person, he could not tell the mouth or the dates exactly but remembers everything else. He has insight into his illness and follows commands appropriately. He does not remember what happened when he came to the hospital. As per family he had insulin pump and he lost that recently because he lost his insurance and he has previous similar presentation secondary to hypoglycemia He states he does not take long-acting insulin because he ran out of his Lantus. Also he is taking only insulin sliding scale. Usually he checks his sugar and the ranges 100-200. He denies missing meals. He complains only of a mild headache but no dizziness weakness or numbness or blurred vision. No swallowing problems. No chest pain or dyspnea. No change in urine or bowel habits. No fever. Local 1-1.5 pack per day and he was counseled to quit but he declines.. He declines nicotine patch as well. He denies alcohol or illicit drugs. Review of Systems Review of systems CONSTITUTIONAL: No fever, no malaise, no fatigue. HEENT: No recent visual problems or hearing problems. Denied any sore throat. CARDIOVASCULAR: No orthopnea, PND, no palpitations, no syncope. PULMONARY: No shortness of breath, no cough, no hemoptysis. GASTROINTESTINAL: No diarrhea, no nausea, no vomiting, no abdominal pain. Normoactive bowel sounds. NEUROLOGICAL: No headaches, no weakness, no numbness. HEMATOLOGICAL: Denies any bleeding or petechiae. GENITOURINARY: Denies any burning micturition, frequency, or urgency. MUSCULOSKELETAL/RHEUMATOLOGICAL: Denies any joint pain, swelling, or any muscle pain. ENDOCRINE: Denies any polyuria or polydipsia. Past Medical History Past Medical History: Diabetes Mellitus Additional Past Medical History / Comment(s): hydro cephalous History of Any Multi-Drug Resistant Organisms: None Reported Past Surgical History: No Surgical Hx Reported Past Psychological History: ADD/ADHD Smoking Status: Never smoker Past Alcohol Use History: None Reported Past Drug Use History: None Reported Medications and Allergies Home Medications Medication Instructions Recorded Confirmed Type No Known Home Medications 04/11/23 04/11/23 History Allergies Allergy/AdvReac Type Severity Reaction Status Date / Time amphetamine aspartate AdvReac Unknown Verified 04/11/23 10:50 [From Adderall] amphetamine sulfate AdvReac Unknown Verified 04/11/23 10:50 [From Adderall] dextroamphetamine saccharate AdvReac Unknown Verified 04/11/23 10:50 [From Adderall] dextroamphetamine sulfate AdvReac Unknown Verified 04/11/23 10:50 [From Adderall] Physical Exam Vitals: Vital Signs Temp Pulse Resp BP Pulse Ox 04/11/23 06:53 98.1 F 84 16 108/62 95 04/11/23 04:00 95 18 133/76 97 04/10/23 20:44 98.2 F 81 20 132/92 100 Intake and Output 04/10/23 04/11/23 04/11/23 22:59 06:59 14:59 Other: Weight 81.647 kg GENERAL: The patient is alert and oriented x3, not in any acute distress. Well developed, well nourished. HEENT: Pupils are round and equally reacting to light. EOMI. No scleral icterus. No conjunctival pallor. Normocephalic, atraumatic. No pharyngeal erythema. No thyromegaly. CARDIOVASCULAR: S1 and S2 present. No murmurs, rubs, or gallops. PULMONARY: Chest is clear to auscultation, no wheezing , no crackles. ABDOMEN: Soft, nontender, nondistended, normoactive bowel sounds. No palpable organomegaly. MUSCULOSKELETAL: No joint swelling or deformity. EXTREMITIES: No cyanosis, clubbing, or pedal edema. NEUROLOGICAL: Gross neurological examination did not reveal any focal deficits. SKIN: No rashes. no petechiae. Results CBC & Chem 7: 04/11/23 09:10 04/11/23 09:10 Labs: Abnormal Lab Results - Last 24 Hours (Table) 04/10/23 04/10/23 04/10/23 Range/Units 20:52 22:10 22:12 WBC 20.5 H (3.8-10.6) k/uL Neutrophils # 18.5 H (1.3-7.7) k/uL Lymphocytes # 0.9 L (1.0-4.8) k/uL Sodium 132 L (137-145) mmol/L BUN 7 L (9-20) mg/dL Creatinine 0.65 L (0.66-1.25) mg/dL POC Glucose (mg/dL) 161 H (70-110) mg/dL Total Protein 5.6 L (6.3-8.2) g/dL Albumin 3.4 L (3.5-5.0) g/dL Assessment and Plan Assessment: Vitals are stable and patient is afebrile. This is slightly tachypneic but saturating 94% on room air. His WBC is increased 20.5k , rest of CBC, INR is unremarkable Sodium slightly low at 132, rest of BMP, liver enzymes are unremarkable. Last sugar readings is 161, 103 and 105. Liver enzymes are not elevated. On 0.019 Serum alcohol less than 10. no Coronavirus noted In the emergency room patient received Unasyn and Ativan and output and admitted to the hospital with neurology consult Plan: Insulin-dependent diabetes mellitus, with hypoglycemia on admission Altered mental status most likely metabolic encephalopathy secondary to above. Intracranial lesion is Less likely. Mild hyponatremia most likely hypovolemic hyponatremia hold long-acting insulin Continue with insulin sliding scale Check hemoglobin A1c Check urine or screen Neurology team were consulted. Monitored WBC and repeat labs this morning Check orthostatic vitals Labs and medication were reviewed.. Continue same treatment. Continue with symptomatic treatment. Resume home medication. Monitor labs and vitals. DVT and GI prophylaxis. Further recommendations as per clinical course of the patient Prognosis is guarded
[2023-04-11 13:56] LABS: Appearance,Urine Clear (Clear); Bilirubin,Urine Negative (Negative); Blood,Urine Negative (Negative); Color,Urine Colorless; Glucose,Urine (UA) 4+ (Negative); Leukocyte Esterase,Urine Negative (Negative); Nitrite,Urine Negative (Negative); PH, Urine 6.5 (5.0-8.0); Protein,Urine Negative (Negative); Specific Gravity,Urine 1.015 (1.001-1.035); Urobilinogen,Urine <2.0 mg/dL (<2.0)
[2023-04-11 15:28] LABS: Ketones,Urine 2+ (Negative)
--- NOTE | 2023-04-11 15:53 | P.CNNES ---
History of Present Illness Consult date: 04/11/23 Reason for Consult: seizures History of Present Illness: The pt is a 23 y/o male who is seen in neurologic consultation on 2022, in collaboration with Sadia Puentes, via teleneurology. History is obtained from the chart. The pt is a poor historian and there are no family members at the bedside. Apparently, the pt is reported to have had a seizure secondary to hypoglycemia. This has occurred before. The pt has a history of diabetes mellitus type 1, which was diagnosed at about 15 yrs of age. Per nursing, the pt reportedly had an insulin pump in the past and was well controlled. This is no longer the case. The pt also reportedly lost his medical insurance recently. He is unable to tell me exactly how much insulin he is taking and what his blood sugar has been running. He initially states that he does not check his sugar. Then he then states that his dose of Novalog insulin is based on his blood sugar. Regarding the events leading to admission, the pt states that he does not recall what happened. He denies having a sore tongue. He does not know if there was loss of bowel or bladder control. Past Medical History Past Medical History: Diabetes Mellitus Additional Past Medical History / Comment(s): hydro cephalous History of Any Multi-Drug Resistant Organisms: None Reported Past Surgical History: No Surgical Hx Reported Past Psychological History: ADD/ADHD Smoking Status: Never smoker Past Alcohol Use History: None Reported Past Drug Use History: None Reported Medications and Allergies Home Medications Medication Instructions Recorded Confirmed Type No Known Home Medications 04/11/23 04/11/23 History Allergies Allergy/AdvReac Type Severity Reaction Status Date / Time amphetamine aspartate AdvReac Unknown Verified 04/11/23 10:50 [From Adderall] amphetamine sulfate AdvReac Unknown Verified 04/11/23 10:50 [From Adderall] dextroamphetamine saccharate AdvReac Unknown Verified 04/11/23 10:50 [From Adderall] dextroamphetamine sulfate AdvReac Unknown Verified 04/11/23 10:50 [From Adderall] Physical Examination - Vital Signs Vital Signs: Vital Signs Temp Pulse Pulse Resp BP BP Pulse Ox 04/11/23 07:55 97.7 F 92 18 105/68 96 04/11/23 07:42 18 04/11/23 06:53 98.1 F 84 16 108/62 95 04/11/23 04:00 95 18 133/76 97 04/10/23 20:44 98.2 F 81 20 132/92 100 Intake and Output 04/10/23 04/11/23 04/11/23 22:59 06:59 14:59 Other: Weight 81.647 kg General: The pt is initially sleeping. He is in no acute distress. He is well nourished HEENT: Head is atraumatic, normocephalic. There is no scleral icterus. Fundus not visualized. Mucous membranes moist Neck: supple, no bruits Heart: Regular rate and rhythm Lung: Breathing comfortably Extremities: No edema Neurologic examination Mental status: The pt is sleepy. He is oriented x3. Speech is clear. He is poorly cooperative with the examination. Cranial Nerves: Pupils are equal at 4mm and reactive. Visual henry are full. Extraocular movements intact. No nystagmus. Facial sensation intact. No facial asymmetry. Hearing grossly intact. Uvula and palate midline. Shoulder shrug symmetric. Tongue protrudes midline, without bite. Motor: 4/5 in the bilateral upper extremities. Lower extremity strength testing reveals give way weakness. Sensation: Grossly intact to light touch through out Coordination: Finger to nose, rapid alternating movments and heel to jules testing is intact. Deep tendon reflexes: 2+/4+ throughout. Plantat responses are flexor. Gait: Not assessed Results - Laboratory Findings CBC and BMP: 04/11/23 09:10 04/11/23 09:10 Abnormal Lab Findings: Abnormal Labs 04/10/23 04/10/23 04/10/23 20:52 22:10 22:12 WBC 20.5 H RBC Hgb Hct Neutrophils # 18.5 H Lymphocytes # 0.9 L Sodium 132 L Carbon Dioxide BUN 7 L Creatinine 0.65 L Glucose POC Glucose (mg/dL) 161 H Total Protein 5.6 L Albumin 3.4 L 04/11/23 04/11/23 09:10 09:10 WBC 16.7 H RBC 4.11 L Hgb 12.9 L Hct 37.6 L Neutrophils # 13.6 H Lymphocytes # Sodium 129 L Carbon Dioxide 20 L BUN 7 L Creatinine 0.49 L Glucose 190 H POC Glucose (mg/dL) Total Protein Albumin - Diagnostic Findings Comments: CT brain images have been personally reviewed Assessment and Plan Assessment: 1. Provoked seizure, secondary to hypoglycemia 2. Poorly controlled diabetes mellitus Plan: 1. Would not begin antiepileptic medication 2. No EEG at this time 3. Social work and/or case management consultation regarding medical and social needs Thank you for allowing us to participate in the care of this pt. Time with Patient: Greater than 30 (50 minutes spent caring for pt including re view of brain imaging, labs, chart documentation, placing orders and creating this note)
[2023-04-11 16:31] LABS: Glucose,Whole Blood 233 mg/dL (70-110)
[2023-04-11 21:00] LABS: Glucose,Whole Blood 258 mg/dL (70-110)
[2023-04-11 23:35] LABS: Urine Alcohol Negative (Negative); Urine Barbiturate Negative (Negative); Urine Cocaine Negative (Negative); Urine Methadone Negative (Negative); Urine Opiates Negative (Negative); Urine Phencyclidine Negative (Negative)
[2023-04-12] MEDS: AMPICILLIN-SULBACTAM 3 GM in SODIUM CHLORIDE 0.9% 100 ML IVPB SCH ×2 (06:11→11:51)
[2023-04-12 06:28] LABS: Glucose,Whole Blood 341 mg/dL (70-110)
[2023-04-12] MEDS: INSULIN ASPART (NovoLOG) 100 UNIT/ML VIAL SQ SCH ×4 (06:37→20:28)
[2023-04-12] MEDS: FAMOTIDINE 20 MG/2 ML VIAL IV SCH ×2 (08:14→20:29)
[2023-04-12 11:19] LABS: HCT 40.9 % (39.0-53.0); HGB 13.4 gm/dL (13.0-17.5); MCH 30.7 pg (25.0-35.0); MCHC 32.9 g/dL (31.0-37.0); MCV 93.4 fL (80.0-100.0); Mean Platelet Volume 7.6; Platelet Count 465 k/uL (150-450); RBC 4.37 m/uL (4.30-5.90); RDW 12.3 % (11.5-15.5)
[2023-04-12 11:34] LABS: African American GFR (CKD) >90 (>60 ml/min/1.73 sqM); Anion Gap 18 mmol/L; Blood Urea Nitrogen 20 mg/dL (9-20); Calcium 9.6 mg/dL (8.4-10.2); Chloride 100 mmol/L (98-107); Glucose 282 mg/dL (74-99); Non-African American GFR(CKD) >90 (>60 ml/min/1.73 sqM); Potassium 5.7 mmol/L (3.5-5.1); Sodium 127 mmol/L (137-145)
[2023-04-12 11:42] LABS: Carbon Dioxide 9 mmol/L (22-30)
[2023-04-12 12:16] LABS: Glucose,Whole Blood 287 mg/dL (70-110)
--- NOTE | 2023-04-12 16:03 | P.CNPUL ---
History of Present Illness Consult date: 04/12/23 Requesting physician: Durga E Ajith Reason for consult: dyspnea, pneumonia, abnormal CXR/CT Chief complaint: Mental status changes, possible pneumonia. History of present illness: Pulmonary consult dated 04/12/2023. This is a 23-year-old male with history of type 1 diabetes, diagnosed 7 years ago, who presented to the emergency department, with mental status changes, poor responsiveness, and an apparent seizure. The patient apparently has lost his insurance recently, and has not had access to insulin for 1-2 weeks. He's not sure how even got here to the emergency department. Other than some nasal congestion and stuffiness, and sinus issues, he denies any significant shortness of breath, or any other complaints for that matter. He was admitted with a diagnosis of mental status changes, delirium, and possible aspiration pneumonia. Currently labs include a white count of 19, with a normal hemoglobin, and hematocrit. Platelet count is 465,000. Sodium 127, potassium 5.7, chlorides 100, CO2 19, anion gap 18, BUN 20, and creatinine 0.83. This is consistent with an anion gap metabolic acidosis. Sugar is 282. Urine is negative. Drug screen is negative. Testing for coronavirus was negative. Chest x-ray shows minimal infiltrate, and the right middle lobe, potentially suggesting, aspiration. The patient is on Unasyn. Review of Systems REVIEW OF SYSTEMS: CONSTITUTIONAL: [Negative.] NEUROLOGIC: Acute mental status changes. HEENT: Sinus congestion and stuffiness. CARDIAC: [Negative.] PULMONARY: Minimal shortness of breath. GI: [Negative.] : [Negative.] RHEUMATOLOGIC: [ Negative.] IMMUNOLOGIC: [ Negative.] ENDOCRINE: [Negative. ] DERMATOLOGIC: [Negative.] Past Medical History Past Medical History: Diabetes Mellitus Additional Past Medical History / Comment(s): hydro cephalous History of Any Multi-Drug Resistant Organisms: None Reported Past Surgical History: No Surgical Hx Reported Past Anesthesia/Blood Transfusion Reactions: No Reported Reaction Past Psychological History: ADD/ADHD Smoking Status: Never smoker Past Alcohol Use History: None Reported Past Drug Use History: None Reported Medications and Allergies Home Medications Medication Instructions Recorded Confirmed Type No Known Home Medications 04/11/23 04/11/23 History Allergies Allergy/AdvReac Type Severity Reaction Status Date / Time amphetamine aspartate AdvReac Unknown Verified 04/11/23 10:50 [From Adderall] amphetamine sulfate AdvReac Unknown Verified 04/11/23 10:50 [From Adderall] dextroamphetamine saccharate AdvReac Unknown Verified 04/11/23 10:50 [From Adderall] dextroamphetamine sulfate AdvReac Unknown Verified 04/11/23 10:50 [From Adderall] Physical Exam Osteopathic Statement: *. No significant issues noted on an osteopathic structural exam other than those noted in the History and Physical/Consult. Vitals: Vital Signs Temp Pulse Resp BP Pulse Ox 04/12/23 14:00 98.9 F 99 16 104/60 97 04/12/23 07:19 98.0 F 108 H 19 110/56 98 04/12/23 01:44 97.8 F 107 H 120/71 98 04/11/23 20:00 98.7 F 92 119/66 98 Intake and Output 04/12/23 04/12/23 04/12/23 06:59 14:59 22:59 Output Total 1100 Balance -1100 Output: Urine 1100 Other: # Voids 3 No acute distress, oriented 3. Currently on room air. No respiratory distress, audible wheezing, or use of accessory muscles. HEENT examination is grossly unremarkable. Mucous membranes are moist. No oral lesions. Neck supple. Full range of motion. No adenopathy thyromegaly or neck vein distention. Cardiovascular examination reveals regular rhythm rate. S1-S2 normal. No S3 or S4. No discernible murmur noted. Heart rate 90 bpm. Lungs reveal clear breath sounds. Breath sounds are equal bilaterally. No adventitious lung sounds including wheezes rhonchi or crackles. Abdomen soft bowel sounds are heard. No masses or tenderness. Extremities are intact. No cyanosis clubbing or edema. Skin is without rash or lesion. Neurologic examination is brief but nonfocal. Results - Laboratory Findings CBC and BMP: 04/12/23 10:04/12/23 10:23 PT/INR, D-dimer PT 10.1 sec (10.0-12.5) 04/10/23 22:10 INR 0.9 (<1.2) 04/10/23 22:10 Abnormal lab findings: Abnormal Labs 04/10/23 04/10/23 04/10/23 20:52 22:10 22:12 WBC 20.5 H RBC Hgb Hct Plt Count Neutrophils # 18.5 H Lymphocytes # 0.9 L Sodium 132 L Potassium Carbon Dioxide BUN 7 L Creatinine 0.65 L Glucose POC Glucose (mg/dL) 161 H Hemoglobin A1c Total Protein 5.6 L Albumin 3.4 L Urine Glucose (UA) Urine Ketones 04/11/23 04/11/23 04/11/23 09:10 09:10 12:02 WBC 16.7 H RBC 4.11 L Hgb 12.9 L Hct 37.6 L Plt Count Neutrophils # 13.6 H Lymphocytes # Sodium 129 L Potassium Carbon Dioxide 20 L BUN 7 L Creatinine 0.49 L Glucose 190 H POC Glucose (mg/dL) 258 H Hemoglobin A1c Total Protein Albumin Urine Glucose (UA) Urine Ketones 04/11/23 04/11/23 04/11/23 13:08 16:29 20:58 WBC RBC Hgb Hct Plt Count Neutrophils # Lymphocytes # Sodium Potassium Carbon Dioxide BUN Creatinine Glucose POC Glucose (mg/dL) 233 H 258 H Hemoglobin A1c Total Protein Albumin Urine Glucose (UA) 4+ H Urine Ketones 2+ H 04/12/23 04/12/23 04/12/23 06:26 10:23 10:23 WBC 19.0 H RBC Hgb Hct Plt Count 465 H Neutrophils # Lymphocytes # Sodium 127 L Potassium 5.7 H Carbon Dioxide 9 L* BUN Creatinine Glucose 282 H POC Glucose (mg/dL) 341 H Hemoglobin A1c Total Protein Albumin Urine Glucose (UA) Urine Ketones 04/12/23 04/12/23 10:23 11:56 WBC RBC Hgb Hct Plt Count Neutrophils # Lymphocytes # Sodium Potassium Carbon Dioxide BUN Creatinine Glucose POC Glucose (mg/dL) 287 H Hemoglobin A1c 8.7 H Total Protein Albumin Urine Glucose (UA) Urine Ketones - Diagnostic Findings Chest x-ray: image reviewed Assessment and Plan Assessment: Acute mental status changes, which may relate to a seizure, or metabolic encephalopathy, secondary to the patient's diabetes. Possible aspiration pneumonia, although chest x-ray is not impressive, and the patient is not having any respiratory issues. History of type 1 diabetes mellitus. Anion gap metabolic acidosis. Recent noncompliance with insulin, because of insurance issues. Plan: Plan dated 04/12/2023. I will order a pro-calcitonin level. If it is normal, we will discontinue antibiotics. The patient's antibiotics can probably be de-escalated anyway given the fact that he is not having any respiratory issues at this time. I likely will place him on Augmentin, and DC the Unasyn. Additional recommendations and suggestions are forthcoming. Prognosis is guarded. Labs, x-rays, medications are reviewed. We will continue to follow along. Time with Patient: Greater than 30
[2023-04-12 17:21] LABS: Glucose,Whole Blood 346 mg/dL (70-110)
[2023-04-12 20:13] LABS: Glucose,Whole Blood 311 mg/dL (70-110)
[2023-04-12] MEDS: AMOXIC-POT CLAV 875-125MG 1 EACH TAB PO SCH (20:28)
[2023-04-12] MEDS: SODIUM CHLORIDE 0.9% 1,000 ML IV SCH (20:32)
[2023-04-13 05:33] LABS: Glucose,Whole Blood 258 mg/dL (70-110)
[2023-04-13] MEDS: SODIUM CHLORIDE 0.9% 1,000 ML IV SCH ×2 (05:37→20:18)
[2023-04-13] MEDS: INSULIN ASPART (NovoLOG) 100 UNIT/ML VIAL SQ SCH ×4 (05:37→20:18)
--- NOTE | 2023-04-13 07:38 | XR ---
EXAMINATION TYPE: XR chest 1V DATE OF EXAM: 04/13/2023 COMPARISON: 04/10/2023 INDICATION: Short of breath TECHNIQUE: Single frontal view of the chest is obtained. FINDINGS: The heart size is normal. The pulmonary vasculature is normal. The lungs are clear. IMPRESSION: 1. No acute pulmonary process.
[2023-04-13] MEDS: FAMOTIDINE 20 MG/2 ML VIAL IV SCH ×2 (08:08→20:18)
[2023-04-13] MEDS: AMOXIC-POT CLAV 875-125MG 1 EACH TAB PO SCH ×2 (08:08→20:18)
--- NOTE | 2023-04-13 10:54 | P.PN ---
Subjective This is a pleasant 23 years old male with past medical history of insulin- dependent diabetes mellitus Presents because of altered mental status secondary to hypoglycemia. As per records patient was found on the ground and when EMS arrived his sugar was low at 62 and he received D50 by him and his sugar improved 161. Patient reported to have history of seizure secondary to hypoglycemia Patient himself is fully awake and oriented to time place and person, he could not tell the mouth or the dates exactly but remembers everything else. He has insight into his illness and follows commands appropriately. He does not remember what happened when he came to the hospital. As per family he had insulin pump and he lost that recently because he lost his insurance and he has previous similar presentation secondary to hypoglycemia He states he does not take long-acting insulin because he ran out of his Lantus. Also he is taking only insulin sliding scale. Usually he checks his sugar and the ranges 100-200. He denies missing meals. He complains only of a mild headache but no dizziness weakness or numbness or blurred vision. No swallowing problems. No chest pain or dyspnea. No change in urine or bowel habits. No fever. Local 1-1.5 pack per day and he was counseled to quit but he declines.. He declines nicotine patch as well. He denies alcohol or illicit drugs. Vitals are stable and patient is afebrile. This is slightly tachypneic but saturating 94% on room air. His WBC is increased 20.5k , rest of CBC, INR is unremarkable Sodium slightly low at 132, rest of BMP, liver enzymes are unremarkable. Last sugar readings is 161, 103 and 105. Liver enzymes are not elevated. On 0.019 Serum alcohol less than 10. no Coronavirus noted In the emergency room patient received Unasyn and Ativan and output and admitted to the hospital with neurology consult 04/12/2023 Patient lying in bed looks tired but awake alert mildly lethargic. He denies respiratory symptoms no chest pain coughing or dyspnea. His chest x-ray showing for right-sided pneumonia and patient currently on Unasyn Also on presentation he was hypoglycemic was taken Lantus at home but he ran out of his medication (patient could not remember the dose of Lantus when I asked him) also he takes NovoLog sliding scale with meals when he kept taken before he comes to the hospital, on presentation was found on the ground with hypoglycemia and glucose 136. Currently glucose is elevated. Therefore going to start him on Levemir 10 units daily. Also we started him on normal saline 75 mL/h which will help his hyponatremia and hyperkalemia and we will check levels tomorrow. Chest x-ray on a recent patient showing right middle lobe airspace disease likely related to underlying infectious/inflammatory process. Pulmonary team consult is reques Currently patient kept on Unasyn Review of systems CONSTITUTIONAL: No fever, no malaise, no fatigue. HEENT: No recent visual problems or hearing problems. Denied any sore throat. CARDIOVASCULAR: No orthopnea, PND, no palpitations, no syncope. PULMONARY: No shortness of breath, no cough, no hemoptysis. GASTROINTESTINAL: No diarrhea, no nausea, no vomiting, no abdominal pain. Normoactive bowel sounds. NEUROLOGICAL: No headaches, no weakness, no numbness. Active Medications Generic Name Dose Route Start Last Admin Trade Name Freq PRN Reason Stop Dose Admin Amoxicillin/Clavulanate Potassium 1 each 04/12/23 21:00 04/13/23 08:08 Amoxic-Pot Clav 875-125mg 1 Each Tab PO 1 each Q12HR MARIA DOLORES Administration Protocol Famotidine 20 mg 04/11/23 09:00 04/13/23 08:08 Famotidine 20 Mg/2 Ml Vial IV 20 mg Q12HR MARIA DOLORES Administration Sodium Chloride 1,000 mls @ 75 mls/hr 04/12/23 19:15 04/13/23 05:37 Saline 0.9% IV 75 mls/hr .[id number] MARIA DOLORES Administration Insulin Aspart 0 unit 04/12/23 07:30 04/13/23 05:37 Insulin Aspart (Novolog) 100 Unit/Ml Vial SQ 6 unit ACHS MARIA DOLORES Administration Protocol Insulin Detemir 10 unit 04/13/23 10:44 Insulin Detemir (Levemir) 100 Unit/Ml Syr SQ DAILY@0700 MARIA DOLORES Naloxone HCl 0.2 mg 04/10/23 23:39 Naloxone 0.4 Mg/Ml 1 Ml Vial IV Q2M PRN Opioid Reversal Objective - Vital Signs Vital signs: Vital Signs Temp 98.0 F 04/12/23 07:19 Pulse 108 H 04/12/23 07:19 Resp 19 04/12/23 07:19 BP 110/56 04/12/23 07:19 Pulse Ox 98 04/12/23 07:19 FiO2 Intake & Output 04/11/23 04/12/23 04/12/23 18:59 06:59 18:59 Output Total 400 1100 Balance -400 -1100 Output: Urine 400 1100 Other: Voiding Method Toilet Urinal # Voids 3 - Exam GENERAL: The patient is alert and oriented x3, not in any acute distress. Well developed, well nourished. HEENT: Pupils are round and equally reacting to light. EOMI. No scleral icterus. No conjunctival pallor. Normocephalic, atraumatic. No pharyngeal erythema. No thyromegaly. CARDIOVASCULAR: S1 and S2 present. No murmurs, rubs, or gallops. PULMONARY: Chest is clear to auscultation, no wheezing , no crackles. ABDOMEN: Soft, nontender, nondistended, normoactive bowel sounds. No palpable organomegaly. MUSCULOSKELETAL: No joint swelling or deformity. EXTREMITIES: No cyanosis, clubbing, or pedal edema. NEUROLOGICAL: Gross neurological examination did not reveal any focal deficits. SKIN: No rashes. no petechiae. - Labs CBC & Chem 7: 04/12/23 10:23 04/12/23 10: Labs: Abnormal Lab Results - Last 24 Hours (Table) 04/11/23 04/11/23 04/11/23 Range/Units 13:08 16:29 20:58 WBC (3.8-10.6) k/uL Plt Count (150-450) k/uL Sodium (137-145) mmol/L Potassium (3.5-5.1) mmol/L Carbon Dioxide (22-30) mmol/L Glucose (74-99) mg/dL POC Glucose (mg/dL) 233 H 258 H (70-110) mg/dL Urine Glucose (UA) 4+ H (Negative) Urine Ketones 2+ H (Negative) 04/12/23 04/12/23 04/12/23 Range/Units 06:26 10: 10: WBC 19.0 H (3.8-10.6) k/uL Plt Count 465 H (150-450) k/uL Sodium 127 L (137-145) mmol/L Potassium 5.7 H (3.5-5.1) mmol/L Carbon Dioxide 9 L* (22-30) mmol/L Glucose 282 H (74-99) mg/dL POC Glucose (mg/dL) 341 H (70-110) mg/dL Urine Glucose (UA) (Negative) Urine Ketones (Negative) 04/12/23 Range/Units 11:56 WBC (3.8-10.6) k/uL Plt Count (150-450) k/uL Sodium (137-145) mmol/L Potassium (3.5-5.1) mmol/L Carbon Dioxide (22-30) mmol/L Glucose (74-99) mg/dL POC Glucose (mg/dL) 287 H (70-110) mg/dL Urine Glucose (UA) (Negative) Urine Ketones (Negative) Microbiology - Last 24 Hours (Table) 04/10/23 22:00 Blood Culture - Preliminary Blood 04/10/23 22:15 Blood Culture - Preliminary Blood Assessment and Plan Assessment: Altered mental status on the presentation with hypoglycemia which may be contributing cause. Rule out intracranial lesions. Right middle lobe pneumonia could be aspiration pneumonia Diabetes mellitus with hypoglycemia, present on the presentation Non-adherence with therapy as patient wasn't taking his Lantus Generalized weakness and malaise secondary to above DehydrationMild hyponatremia most likely hypovolemic hyponatremia Plan: Insulin-dependent diabetes mellitus, with hypoglycemia on admission Altered mental status most likely metabolic encephalopathy secondary to above. Intracranial lesion is Less likely. Start normal saline 75 mL/h Monitor electrolytes hold long-acting insulin Continue with insulin sliding scale Start Levemir 10 units Consult pulmonary service Neurology team were consulted. Monitored WBC and repeat labs this morning Check orthostatic vitals Labs and medication were reviewed.. Continue same treatment. Continue with symptomatic treatment. Resume home medication. Monitor labs and vitals. DVT and GI prophylaxis. Further recommendations as per clinical course of the pat ient Prognosis is guarded Mild hyponatremia most likely hypovolemic hyponatremiaMild hyponatremia most likely hypovolemic hyponatremia
[2023-04-13 11:15] LABS: Glucose,Whole Blood 261 mg/dL (70-110)
[2023-04-13 11:43] LABS: HGB 12.2 gm/dL (13.0-17.5); MCHC 33.1 g/dL (31.0-37.0); MCV 90.6 fL (80.0-100.0); Mean Platelet Volume 8.2; Platelet Count 391 k/uL (150-450); RBC 4.08 m/uL (4.30-5.90); RDW 12.4 % (11.5-15.5)
[2023-04-13 11:55] LABS: African American GFR (CKD) >90 (>60 ml/min/1.73 sqM); Anion Gap 10 mmol/L; Blood Urea Nitrogen 13 mg/dL (9-20); Calcium 8.7 mg/dL (8.4-10.2); Carbon Dioxide 16 mmol/L (22-30); Chloride 104 mmol/L (98-107); Glucose 215 mg/dL (74-99); Non-African American GFR(CKD) >90 (>60 ml/min/1.73 sqM); Sodium 130 mmol/L (137-145)
[2023-04-13] MEDS: INSULIN DETEMIR (LEVEMIR) 100 UNIT/ML SYR SQ SCH (12:10)
--- NOTE | 2023-04-13 13:12 | P.PN ---
Subjective Progress Note Date: 04/13/23 This is a 23-year-old male with history of type 1 diabetes, diagnosed 7 years ago, who presented to the emergency department, with mental status changes, poor responsiveness, and an apparent seizure. The patient apparently has lost his insurance recently, and has not had access to insulin for 1-2 weeks. He's not sure how even got here to the emergency department. Other than some nasal congestion and stuffiness, and sinus issues, he denies any significant shortness of breath, or any other complaints for that matter. He was admitted with a diagnosis of mental status changes, delirium, and possible aspiration pneumonia. Currently labs include a white count of 19, with a normal hemoglobin, and he matocrit. Platelet count is 465,000. Sodium 127, potassium 5.7, chlorides 100, CO2 19, anion gap 18, BUN 20, and creatinine 0.83. This is consistent with an anion gap metabolic acidosis. Sugar is 282. Urine is negative. Drug screen is negative. Testing for coronavirus was negative. Chest x-ray shows minimal infiltrate, and the right middle lobe, potentially suggesting, aspiration. The patient is on Unasyn. The patient is seen today 04/13/2023 in follow-up on the regular medical floor. He is currently laying in bed. Awake and alert in no acute distress. Maintaining good O2 saturations in the 90s on room air. He has normal saline at 75 ML's per hour. He denies any worsening shortness of breath, cough or congestion. He's been afebrile. Hemodynamically stable. Chest x-ray reveals no acute pulmonary process Blood cultures revealing no growth. White count 11.0. Hemoglobin 12.2. Platelets 391. Sodium 130. Potassium 5.0. Bicarb 16. BUN 13. Creatinine 0.56. Glucose 215. ProCalcitonin pending. He is currently on antibiotics in the form of Augmentin. Remains on Levemir and NovoLog sliding scale. Objective - Vital Signs Vital signs: Vital Signs Temp 98 F 04/13/23 07:28 Pulse 67 04/13/23 07:28 Resp 17 04/13/23 07:28 BP 102/64 04/13/23 07:28 Pulse Ox 98 04/13/23 07:28 FiO2 Intake & Output 10/16/23 10/17/23 10/17/23 18:59 06:59 18:59 Other: # Voids 2 3 - Exam GENERAL EXAM: Alert, pleasant, thin 23-year-old male, on room air, comfortable in no apparent distress. HEAD: Normocephalic. EYES: Normal reaction of pupils, equal size. NOSE: Clear with pink turbinates. THROAT: No erythema or exudates. NECK: No masses, no JVD. CHEST: No chest wall deformity. LUNGS: Equal air entry with no crackles, wheeze, rhonchi or dullness. CVS: S1 and S2 normal with no audible murmur, regular rhythm. ABDOMEN: No hepatosplenomegaly, normal bowel sounds, no guarding or rigidity. SPINE: No scoliosis or deformity SKIN: No rashes CENTRAL NERVOUS SYSTEM: No focal deficits, tone is normal in all 4 extremities. EXTREMITIES: There is no peripheral edema. No clubbing, no cyanosis. Peripheral pulses are intact. - Labs CBC & Chem 7: 04/13/23 11:07 04/13/23 11:07 Labs: Abnormal Lab Results - Last 24 Hours (Table) 04/12/23 04/12/23 04/12/23 Range/Units 10: 17:09 20:12 WBC (3.8-10.6) k/uL RBC (4.30-5.90) m/uL Hgb (13.0-17.5) gm/dL Hct (39.0-53.0) % Sodium (137-145) mmol/L Carbon Dioxide (22-30) mmol/L Creatinine (0.66-1.25) mg/dL Glucose (74-99) mg/dL POC Glucose (mg/dL) 346 H 311 H (70-110) mg/dL Hemoglobin A1c 8.7 H (<=6.0) % 04/13/23 04/13/23 04/13/23 Range/Units 05:32 11:07 11:07 WBC 11.0 H (3.8-10.6) k/uL RBC 4.08 L (4.30-5.90) m/uL Hgb 12.2 L (13.0-17.5) gm/dL Hct 37.0 L (39.0-53.0) % Sodium 130 L (137-145) mmol/L Carbon Dioxide 16 L (22-30) mmol/L Creatinine 0.56 L (0.66-1.25) mg/dL Glucose 215 H (74-99) mg/dL POC Glucose (mg/dL) 258 H (70-110) mg/dL Hemoglobin A1c (<=6.0) % 04/13/23 Range/Units 11:14 WBC (3.8-10.6) k/uL RBC (4.30-5.90) m/uL Hgb (13.0-17.5) gm/dL Hct (39.0-53.0) % Sodium (137-145) mmol/L Carbon Dioxide (22-30) mmol/L Creatinine (0.66-1.25) mg/dL Glucose (74-99) mg/dL POC Glucose (mg/dL) 261 H (70-110) mg/dL Hemoglobin A1c (<=6.0) % Microbiology - Last 24 Hours (Table) 04/10/23 22:00 Blood Culture - Preliminary Blood 04/10/23 22:15 Blood Culture - Preliminary Blood Assessment and Plan Assessment: Acute mental status changes, which may relate to a seizure, or metabolic encephalopathy, secondary to the patient's diabetes Possible aspiration pneumonia, although chest x-ray is not impressive, and the patient is not having any respiratory issues. Pro-calcitonin pending History of type 1 diabetes mellitus Anion gap metabolic acidosis Recent noncompliance with insulin, because of insurance issues Plan: The patient was seen and evaluated Chest x-ray, labs and medications reviewed Procalcitonin pending Currently on Augmentin We will continue to follow I have personally seen and examined the patient, performed the documentation and the assessment and plan as written. Number of minutes spent on the visit: 10.
[2023-04-13 16:41] LABS: Glucose,Whole Blood 347 mg/dL (70-110)
[2023-04-13 19:57] LABS: Glucose,Whole Blood 194 mg/dL (70-110)
[2023-04-14 05:28] LABS: Glucose,Whole Blood 164 mg/dL (70-110)
[2023-04-14] MEDS: INSULIN DETEMIR (LEVEMIR) 100 UNIT/ML SYR SQ SCH (06:38)
[2023-04-14] MEDS: INSULIN ASPART (NovoLOG) 100 UNIT/ML VIAL SQ SCH ×2 (06:38→12:43)
[2023-04-14 07:38] VITALS: RESP 18
[2023-04-14] MEDS: AMOXIC-POT CLAV 875-125MG 1 EACH TAB PO SCH (09:50)
[2023-04-14] MEDS: FAMOTIDINE 20 MG/2 ML VIAL IV SCH (10:46)
[2023-04-14 10:59] LABS: Basophils # (A) 0.08 X 10*3/uL (0.00-0.10); Basophils % (A) 1.1 %; Eosinophils # (A) 0.22 X 10*3/uL (0.04-0.35); HCT 36.7 % (39.6-50.0); HGB 12.4 d/dL (13.0-17.0); Lymphocytes # (A) 2.59 X 10*3/uL (0.90-5.00); MCHC 33.8 d/dL (32.0-37.0); MCV 88.6 FL (80.0-97.0); Mean Platelet Volume 9.6 FL (9.5-12.2); Monocytes # (A) 0.84 X 10*3/uL (0.20-1.00); Monocytes % (A) 11.3 %; NRBC Per 100 WBC 0 X 10*3/uL (0.00-0.01); Neutrophils # (A) 3.67 X 10*3/uL (1.80-7.70); Neutrophils % (A) 49.5 %; Platelet Count 392 X 10*3/uL (140-440); RBC 4.14 X 10*6/uL (4.40-5.60); RDW 12.3 % (11.5-14.5); WBC 7.41 X 10*3/uL (4.50-10.00)
[2023-04-14 11:10] LABS: BUN/Creat Ratio 11.14 Ratio (12.00-20.00); Blood Urea Nitrogen 7.8 mg/dL (9.0-27.0); Carbon Dioxide 24.6 mmol/L (21.6-31.8); Chloride 100 mmol/L (96-109); Glucose 237 mg/dL (70-110); Potassium 4.3 mmol/L (3.5-5.5); Sodium 133 mmol/L (135-145)
[2023-04-14 11:11] LABS: Calcium 8.8 mg/dL (8.7-10.3)
[2023-04-14 11:31] LABS: Glucose,Whole Blood 202 mg/dL (70-110)
--- NOTE | 2023-04-14 13:41 | P.PN ---
Subjective Progress Note Date: 04/14/23 This is a 23-year-old male with history of type 1 diabetes, diagnosed 7 years ago, who presented to the emergency department, with mental status changes, poor responsiveness, and an apparent seizure. The patient apparently has lost his insurance recently, and has not had access to insulin for 1-2 weeks. He's not sure how even got here to the emergency department. Other than some nasal congestion and stuffiness, and sinus issues, he denies any significant shortness of breath, or any other complaints for that matter. He was admitted with a diagnosis of mental status changes, delirium, and possible aspiration pneumonia. Currently labs include a white count of 19, with a normal hemoglobin, and he matocrit. Platelet count is 465,000. Sodium 127, potassium 5.7, chlorides 100, CO2 19, anion gap 18, BUN 20, and creatinine 0.83. This is consistent with an anion gap metabolic acidosis. Sugar is 282. Urine is negative. Drug screen is negative. Testing for coronavirus was negative. Chest x-ray shows minimal infiltrate, and the right middle lobe, potentially suggesting, aspiration. The patient is on Unasyn. The patient is seen today 04/13/2023 in follow-up on the regular medical floor. He is currently laying in bed. Awake and alert in no acute distress. Maintaining good O2 saturations in the 90s on room air. He has normal saline at 75 ML's per hour. He denies any worsening shortness of breath, cough or congestion. He's been afebrile. Hemodynamically stable. Chest x-ray reveals no acute pulmonary process Blood cultures revealing no growth. White count 11.0. Hemoglobin 12.2. Platelets 391. Sodium 130. Potassium 5.0. Bicarb 16. BUN 13. Creatinine 0.56. Glucose 215. ProCalcitonin pending. He is currently on antibiotics in the form of Augmentin. Remains on Levemir and NovoLog sliding scale. The patient is seen today 04/14/2023 in follow-up on the regular medical floor. He is awake and alert in no acute distress. Maintaining good O2 saturations in the 90s on room air. No seizure activity. He is tolerating his diet. Social work is working on a assuring his insurance will cover his insulin. White count 7.4. Hemoglobin 12.4. Platelets 393. Sodium 133. Potassium 4.3. Bicarb 25. BUN 8. Creatinine 0.7. Glucose 237. He is currently on Levemir 10 units daily along with NovoLog sliding scale. He is on antibiotics in the form of Augmentin. Objective - Vital Signs Vital signs: Vital Signs Temp 97.4 F L 04/14/23 07:25 Pulse 61 04/14/23 07:25 Resp 18 04/14/23 07:25 BP 117/68 04/14/23 07:25 Pulse Ox 98 04/14/23 07:25 FiO2 Intake & Output 04/13/23 04/14/23 04/14/23 18:59 06:59 18:59 Other: Voiding Method Toilet Urinal # Voids 6 3 # Bowel Movements 1 - Exam GENERAL EXAM: Alert, oriented 3, pleasant 23-year-old male, on room air, comfortable in no apparent distress. HEAD: Normocephalic. EYES: Normal reaction of pupils, equal size. NOSE: Clear with pink turbinates. THROAT: No erythema or exudates. NECK: No masses, no JVD. CHEST: No chest wall deformity. LUNGS: Equal air entry with no crackles, wheeze, rhonchi or dullness. CVS: S1 and S2 normal with no audible murmur, regular rhythm. ABDOMEN: No hepatosplenomegaly, normal bowel sounds, no guarding or rigidity. SPINE: No scoliosis or deformity SKIN: No rashes CENTRAL NERVOUS SYSTEM: No focal deficits, tone is normal in all 4 extremities. EXTREMITIES: There is no peripheral edema. No clubbing, no cyanosis. Periphe ral pulses are intact. - Labs CBC & Chem 7: 04/14/23 06:00 04/14/23 06:00 Labs: Abnormal Lab Results - Last 24 Hours (Table) 04/12/23 04/13/23 04/13/23 Range/Units 10: 16:39 19:55 RBC (4.40-5.60) X 10*6/uL Hgb (13.0-17.0) d/dL Hct (39.6-50.0) % Sodium (135-145) mmol/L BUN (9.0-27.0) mg/dL BUN/Creatinine Ratio (12.00-20.00) Ratio Glucose (70-110) mg/dL POC Glucose (mg/dL) 347 H 194 H (70-110) mg/dL Procalcitonin 0.26 H (0.02-0.09) ng/mL 04/14/23 04/14/23 04/14/23 Range/Units 05:27 06:00 06:00 RBC 4.14 L (4.40-5.60) X 10*6/uL Hgb 12.4 L (13.0-17.0) d/dL Hct 36.7 L (39.6-50.0) % Sodium 133 L (135-145) mmol/L BUN 7.8 L (9.0-27.0) mg/dL BUN/Creatinine Ratio 11.14 L (12.00-20.00) Ratio Glucose 237 H (70-110) mg/dL POC Glucose (mg/dL) 164 H (70-110) mg/dL Procalcitonin (0.02-0.09) ng/mL 04/14/23 Range/Units 11:29 RBC (4.40-5.60) X 10*6/uL Hgb (13.0-17.0) d/dL Hct (39.6-50.0) % Sodium (135-145) mmol/L BUN (9.0-27.0) mg/dL BUN/Creatinine Ratio (12.00-20.00) Ratio Glucose (70-110) mg/dL POC Glucose (mg/dL) 202 H (70-110) mg/dL Procalcitonin (0.02-0.09) ng/mL Microbiology - Last 24 Hours (Table) 04/10/23 22:00 Blood Culture - Preliminary Blood 04/10/23 22:15 Blood Culture - Preliminary Blood Assessment and Plan Assessment: Acute mental status changes, which may relate to a seizure, or metabolic encephalopathy, secondary to the patient's diabetes Possible aspiration pneumonia, pro-calcitonin 0.26. Continued on Augmentin. History of type 1 diabetes mellitus Anion gap metabolic acidosis Recent noncompliance with insulin, because of insurance issues Plan: The patient was seen and evaluated Labs and medications reviewed Stable and on room air Procalcitonin 0.26 To complete a 5 day course of Augmentin Cleared for discharge from the pulmonary standpoint I have personally seen and examined the patient, performed the documentation and the assessment and plan as written. Number of minutes spent on the visit: 10.
[2023-04-14 13:46] VITALS: BP 114/70; PULSE 85; TEMP 97.7
== END 2023-04-14 16:37 | disposition home or self-care (01) | DRG 637 ==
LOC: EC 20:42 → 4SSUR 23:39
PROVIDERS: ADMIT Hospitalist; ATTEND Hospitalist
DX: E10.649 Type 1 diabetes mellitus with hypoglycemia without coma (principal); G93.41 Metabolic encephalopathy; Z20.822 Contact with and (suspected) exposure to COVID-19; J69.0 Pneumonitis due to inhalation of food and vomit; E87.1 Hypo-osmolality and hyponatremia; F05 Delirium due to known physiological condition; E87.20 Acidosis, unspecified; F90.9 Attention-deficit hyperactivity disorder, unspecified type; G40.909 Epilepsy, unspecified, not intractable, without status epilepticus; E86.1 Hypovolemia; E87.5 Hyperkalemia; Z91.148 Patient's other noncompliance with medication regimen for other reason; G91.9 Hydrocephalus, unspecified; Z79.4 Long term (current) use of insulin; Z59.7 Insufficient social insurance and welfare support
CPT/HCPCS: 36415; 70450; 71045; 71046; 80048; 80053; 80306; 80320; 81003; 83036; 83735; 84145; 84484; 85025; 85027; 85610; 85730; 87040; 87635; 93005; 96361; 96365; 96366; 96375; 96376; 99285

== ENCOUNTER 2023-10-03 19:44 | Inpatient (IN) | payer MEDICAID, OTHER ==
[2023-10-03 20:03] LABS: Glucose,Whole Blood 98 mg/dL (70-110)
--- NOTE | 2023-10-03 20:18 | ED ---
General Adult HPI - General Chief complaint: Overdose Stated complaint: Hypoglycemia, overdose Time Seen by Provider: 10/03/23 19:59 Source: patient, EMS Mode of arrival: EMS Limitations: no limitations - History of Present Illness Initial comments: 23-year-old male presents to the ED with complaints of suicidal ideation. Patient is a type I diabetic. Patient states that his fiance recently broke up with him a week ago and due to this has been feeling increasingly depressed/suicidal. Has attempted prior suicide attempt in the past. Today, was walking on his way to work he intentionally overdosed on his insulin and attempt to kill himself. Was found outside on a ditch. Reportedly was not alert or oriented and was found to have a sugar of 26. Patient was given D50 and tube of oral glucose. Upon evaluation, patient reports he is feeling back to his normal self. Currently has no complaints. Denies chest pain, shortness of breath, abdominal pain, nausea, vomiting, diarrhea, fever, chills, auditory, visual hallucinations. No other complaints at this time. - Related Data Home Medications Medication Instructions Recorded Confirmed Glucagon [Gvoke Pfs 1-Pack Syringe] 1 mg SQ DIRECTED PRN 10/04/23 10/04/23 Insulin Aspart (For Pump) [NovoLOG 0.01 unit SQ-PUMP DIRECTED 10/04/23 10/04/23 (For Pump)] Insulin Aspart [NovoLOG Flexpen] See Protocol SQ ACHS 10/04/23 10/04/23 Insulin Glargine,Hum.rec.anlog 40 units SQ DAILY 10/04/23 10/04/23 [Lantus Solostar Pen] Allergies Allergy/AdvReac Type Severity Reaction Status Date / Time amphetamine aspartate AdvReac very Verified 10/04/23 12:29 [From Adderall] violent amphetamine sulfate AdvReac very Verified 10/04/23 12:29 [From Adderall] violent dextroamphetamine saccharate AdvReac very Verified 10/04/23 12:29 [From Adderall] violent dextroamphetamine sulfate AdvReac very Verified 10/04/23 12:29 [From Adderall] violent Review of Systems ROS Statement: Those systems with pertinent positive or pertinent negative responses have been documented in the HPI. ROS Other: All systems not noted in ROS Statement are negative. Past Medical History Past Medical History: Diabetes Mellitus Additional Past Medical History / Comment(s): hydro cephalous History of Any Multi-Drug Resistant Organisms: None Reported Past Surgical History: No Surgical Hx Reported Past Anesthesia/Blood Transfusion Reactions: No Reported Reaction Past Psychological History: ADD/ADHD Smoking Status: Current every day smoker Past Alcohol Use History: None Reported Past Drug Use History: Marijuana General Exam Limitations: no limitations General appearance: alert, in no apparent distress Neck exam: Present: normal inspection Respiratory exam: Present: normal lung sounds bilaterally Cardiovascular Exam: Present: regular rate, normal rhythm GI/Abdominal exam: Present: soft Neurological exam: Present: alert, oriented X3 Skin exam: Present: warm, dry Course Vital Signs 10/03/23 10/03/23 10/03/23 19:45 21:00 23:00 Temperature 97.5 F L Pulse Rate 89 82 75 Respiratory 16 18 18 Rate Blood Pressure 124/83 138/81 105/65 O2 Sat by Pulse 100 100 97 Oximetry 10/04/23 01:00 Temperature Pulse Rate 67 Respiratory 18 Rate Blood Pressure 102/71 O2 Sat by Pulse 97 Oximetry Medical Decision Making - Medical Decision Making Was pt. sent in by a medical professional or institution (, PA, POULTRY BREEDER, urgent care, hospital, or shelter...) When possible be specific @ -No Did you speak to anyone other than the patient for history (EMS, parent, family, police, friend...)? What history was obtained from this source @ -No Did you review nursing and triage notes (agree or disagree)? Why? @ -I reviewed and agree with nursing and triage notes Were old charts reviewed (outside hosp., previous admission, EMS record, old EKG, old radiological studies, urgent care reports/EKG's, shelter records)? Report findings @ -No old charts were reviewed Differential Diagnosis (chest pain, altered mental status, abdominal pain women, abdominal pain men, vaginal bleeding, weakness, fever, dyspnea, syncope, headache, dizziness, GI bleed, back pain, seizure, CVA, palpatations, mental health, musculoskeletal)? @ -Differential Altered Mental Status: Hypoglycemia, DKA, hypercapnia, ETOH, overdose, CO poisoning, trauma, myxedema coma, HTN encephalopathy, infection, encephalitis, psychosis, intercranial hemorrhage, hepatic encephalopathy, meningitis, CVA, this is not meant to be an all-inclusive list Differential Mental Health Depression, anxiety, bipolar, psychosis, schizophrenia, borderline personality, situational depression, adjustment disorder, behavioral disorder, brain tumor, malingering, substance abuse, encephalopathy, medication reaction, dementia, hypothyroidism, degenerative neurologic disorder, lupus.... This is not meant to be all-inclusive list EKG interpreted by me (3pts min.). @ -EKG interpreted by me showing a sinus rhythm with no acute ST or T wave changes. Rate of 67 bpm. ME 132, QRS 110, QT/QTc 389/405. X-rays interpreted by me (1pt min.). @ -None CT interpreted by me (1pt min.). @ -None done U/S interpreted by me (1pt. min.). @ -None done What testing was considered but not performed or refused? (CT, X-rays, U/S, labs)? Why? @ -None What meds were considered but not given or refused? Why? @ -None Did you discuss the management of the patient with other professionals (professionals i.e. , PA, POUL[employer]EDER, lab, RT, psych nurse, social worker health services, water control station engineer, teacher, radiation officer, rn case mgr)? Give summary @ -No Was smoking cessation discussed for >3mins.? @ -No Was critical care preformed (if so, how long)? @ -No Were there social determinants of health that impacted care today? How? (Homelessness, low income, unemployed, alcoholism, drug addiction, transportation, low edu. Level, literacy, decrease access to med. care, half-way, rehab)? @ -No Was there de-escalation of care discussed even if they declined (Discuss DNR or withdrawal of care, Hospice)? DNR status @ -No What co-morbidities impacted this encounter? (DM, HTN, Smoking, COPD, CAD, Cancer, CVA, ARF, Chemo, Hep., AIDS, mental health diagnosis, sleep apnea, morbid obesity)? @ -Diabetes Was patient admitted / discharged? Hospital course, mention meds given and route, prescriptions, significant lab abnormalities, going to OR and other p ertinent info. @ -Admission 23-year-old male presented to the ED with complaints of suicidal ideation. While walking to work overdosed on insulin and was found unresponsive in the ditch with a blood sugar of 26. Upon arrival to ED patient back to his normal self and when asked, patient reports that he did this in attempt to hurt himself. Has no other complaints at this time blood sugar has been stable here in the ED. He has medically cleared. Patient was evaluated by EPS who felt that patient met requirements for inpatient treatment. Undiagnosed new problem with uncertain prognosis? @ -No Drug Therapy requiring intensive monitoring for toxicity (Heparin, Nitro, Insulin, Cardizem)? @ -No Were any procedures done? @ -No Diagnosis/symptom? @ -Suicidal ideation Acute, or Chronic, or Acute on Chronic? @ -Acute Uncomplicated (without systemic symptoms) or Complicated (systemic symptoms)? @ -Uncomplicated Side effects of treatment? @ -No Exacerbation, Progression, or Severe Exacerbation? @ -No Poses a threat to life or bodily function? How? (Chest pain, [place], [place], pneumonia, PE, COPD, DKA, ARF, appy, cholecystitis, CVA, Diverticulitis, Homicidal, Suicidal, threat to staff... and all critical care pts) @ -Yes, suicidal ideation - Lab Data Result diagrams: 10/03/23 20:27 10/03/23 20:27 Lab Results 10/03/23 10/03/23 10/03/23 Range/Units 19:52 20:27 20:27 WBC 15.0 H (3.8-10.6) k/uL RBC 5.02 (4.30-5.90) m/uL Hgb 14.8 (13.0-17.5) gm/dL Hct 45.6 (39.0-53.0) % MCV 90.9 (80.0-100.0) fL MCH 29.4 (25.0-35.0) pg MCHC 32.4 (31.0-37.0) g/dL RDW 13.2 (11.5-15.5) % Plt Count 364 (150-450) k/uL MPV 7.6 Neutrophils % 84 % Lymphocytes % 8 % Monocytes % 6 % Eosinophils % 1 % Basophils % 1 % Neutrophils # 12.6 H (1.3-7.7) k/uL Lymphocytes # 1.1 (1.0-4.8) k/uL Monocytes # 0.9 (0-1.0) k/uL Eosinophils # 0.1 (0-0.7) k/uL Basophils # 0.1 (0-0.2) k/uL Sodium 139 (137-145) mmol/L Potassium 4.2 (3.5-5.1) mmol/L Chloride 106 (98-107) mmol/L Carbon Dioxide 27 (22-30) mmol/L Anion Gap 6 mmol/L BUN 10 (9-20) mg/dL Creatinine 0.57 L (0.66-1.25) mg/dL Est GFR (CKD-EPI)AfAm >90 (>60 ml/min/1.73 sqM) Est GFR (CKD-EPI)NonAf >90 (>60 ml/min/1.73 sqM) Glucose 44 L* (74-99) mg/dL POC Glucose (mg/dL) 98 (70-110) mg/dL POC Glu Equity Structurer ID Anette Rosenberg Calcium 9.9 (8.4-10.2) mg/dL Total Bilirubin 0.7 (0.2-1.3) mg/dL AST 26 (17-59) U/L ALT 15 (4-49) U/L Alkaline Phosphatase 77 (38-126) U/L Total Protein 7.5 (6.3-8.2) g/dL Albumin 4.5 (3.5-5.0) g/dL Urine Color Urine Appearance (Clear) Urine pH (5.0-8.0) Ur Specific [place] (1.001-1.035) Urine Protein (Negative) Urine Glucose (UA) (Negative) Urine Ketones (Negative) Urine Blood (Negative) Urine Nitrite (Negative) Urine Bilirubin (Negative) Urine Urobilinogen (<2.0) mg/dL Ur Leukocyte Esterase (Negative) Salicylates <1.0 mg/dL Urine Opiates Screen (NotDetected) Ur Oxycodone Screen (NotDetected) Urine Methadone Screen (NotDetected) Acetaminophen <10.0 ug/mL Ur Barbiturates Screen (NotDetected) U Tricyclic Antidepress (NotDetected) Ur Phencyclidine Scrn (NotDetected) Ur Amphetamines Screen (NotDetected) U Methamphetamines Scrn (NotDetected) U Benzodiazepines Scrn (NotDetected) Urine Cocaine Screen (NotDetected) U Marijuana (THC) Screen (NotDetected) Serum Alcohol <10 mg/dL SARS-CoV-2 (PCR) (Not Detectd) 10/03/23 10/03/23 10/03/23 Range/Units 20:30 20:54 21:11 WBC (3.8-10.6) k/uL RBC (4.30-5.90) m/uL Hgb (13.0-17.5) gm/dL Hct (39.0-53.0) % MCV (80.0-100.0) fL MCH (25.0-35.0) pg MCHC (31.0-37.0) g/dL RDW (11.5-15.5) % Plt Count (150-450) k/uL MPV Neutrophils % % Lymphocytes % % Monocytes % % Eosinophils % % Basophils % % Neutrophils # (1.3-7.7) k/uL Lymphocytes # (1.0-4.8) k/uL Monocytes # (0-1.0) k/uL Eosinophils # (0-0.7) k/uL Basophils # (0-0.2) k/uL Sodium (137-145) mmol/L Potassium (3.5-5.1) mmol/L Chloride (98-107) mmol/L Carbon Dioxide (22-30) mmol/L Anion Gap mmol/L BUN (9-20) mg/dL Creatinine (0.66-1.25) mg/dL Est GFR (CKD-EPI)AfAm (>60 ml/min/1.73 sqM) Est GFR (CKD-EPI)NonAf (>60 ml/min/1.73 sqM) Glucose (74-99) mg/dL POC Glucose (mg/dL) 44 L 73 (70-110) mg/dL POC Glu Equity Structurer Farrah Garrido Taylor Calcium (8.4-10.2) mg/dL Total Bilirubin (0.2-1.3) mg/dL AST (17-59) U/L ALT (4-49) U/L Alkaline Phosphatase (38-126) U/L Total Protein (6.3-8.2) g/dL Albumin (3.5-5.0) g/dL Urine Color Light Yellow Urine Appearance Clear (Clear) Urine pH 7.0 (5.0-8.0) Ur Specific [place] 1.023 (1.001-1.035) Urine Protein Negative (Negative) Urine Glucose (UA) 4+ H (Negative) Urine Ketones Negative (Negative) Urine Blood Negative (Negative) Urine Nitrite Negative (Negative) Urine Bilirubin Negative (Negative) Urine Urobilinogen <2.0 (<2.0) mg/dL Ur Leukocyte Esterase Negative (Negative) Salicylates mg/dL Urine Opiates Screen Not Detected (NotDetected) Ur Oxycodone Screen Not Detected (NotDetected) Urine Methadone Screen Not Detected (NotDetected) Acetaminophen ug/mL Ur Barbiturates Screen Not Detected (NotDetected) U Tricyclic Antidepress Not Detected (NotDetected) Ur Phencyclidine Scrn Not Detected (NotDetected) Ur Amphetamines Screen Not Detected (NotDetected) U Methamphetamines Scrn Not Detected (NotDetected) U Benzodiazepines Scrn Not Detected (NotDetected) Urine Cocaine Screen Not Detected (NotDetected) U Marijuana (THC) Screen Not Detected (NotDetected) Serum Alcohol mg/dL SARS-CoV-2 (PCR) (Not Detectd) 10/03/23 10/03/23 10/04/23 Range/Units 22:02 23:32 02:05 WBC (3.8-10.6) k/uL RBC (4.30-5.90) m/uL Hgb (13.0-17.5) gm/dL Hct (39.0-53.0) % MCV (80.0-100.0) fL MCH (25.0-35.0) pg MCHC (31.0-37.0) g/dL RDW (11.5-15.5) % Plt Count (150-450) k/uL MPV Neutrophils % % Lymphocytes % % Monocytes % % Eosinophils % % Basophils % % Neutrophils # (1.3-7.7) k/uL Lymphocytes # (1.0-4.8) k/uL Monocytes # (0-1.0) k/uL Eosinophils # (0-0.7) k/uL Basophils # (0-0.2) k/uL Sodium (137-145) mmol/L Potassium (3.5-5.1) mmol/L Chloride (98-107) mmol/L Carbon Dioxide (22-30) mmol/L Anion Gap mmol/L BUN (9-20) mg/dL Creatinine (0.66-1.25) mg/dL Est GFR (CKD-EPI)AfAm (>60 ml/min/1.73 sqM) Est GFR (CKD-EPI)NonAf (>60 ml/min/1.73 sqM) Glucose (74-99) mg/dL POC Glucose (mg/dL) 238 H 317 H 247 H (70-110) mg/dL POC Glu Equity Structurer MAKENZIE Farrah Cota, Farrah Cota Farrah Calcium (8.4-10.2) mg/dL Total Bilirubin (0.2-1.3) mg/dL AST (17-59) U/L ALT (4-49) U/L Alkaline Phosphatase (38-126) U/L Total Protein (6.3-8.2) g/dL Albumin (3.5-5.0) g/dL Urine Color Urine Appearance (Clear) Urine pH (5.0-8.0) Ur Specific [place] (1.001-1.035) Urine Protein (Negative) Urine Glucose (UA) (Negative) Urine Ketones (Negative) Urine Blood (Negative) Urine Nitrite (Negative) Urine Bilirubin (Negative) Urine Urobilinogen (<2.0) mg/dL Ur Leukocyte Esterase (Negative) Salicylates mg/dL Urine Opiates Screen (NotDetected) Ur Oxycodone Screen (NotDetected) Urine Methadone Screen (NotDetected) Acetaminophen ug/mL Ur Barbiturates Screen (NotDetected) U Tricyclic Antidepress (NotDetected) Ur Phencyclidine Scrn (NotDetected) Ur Amphetamines Screen (NotDetected) U Methamphetamines Scrn (NotDetected) U Benzodiazepines Scrn (NotDetected) Urine Cocaine Screen (NotDetected) U Marijuana (THC) Screen (NotDetected) Serum Alcohol mg/dL SARS-CoV-2 (PCR) (Not Detectd) 10/04/23 10/04/23 10/04/23 Range/Units 07:31 08:04 12:34 WBC (3.8-10.6) k/uL RBC (4.30-5.90) m/uL Hgb (13.0-17.5) gm/dL Hct (39.0-53.0) % MCV (80.0-100.0) fL MCH (25.0-35.0) pg MCHC (31.0-37.0) g/dL RDW (11.5-15.5) % Plt Count (150-450) k/uL MPV Neutrophils % % Lymphocytes % % Monocytes % % Eosinophils % % Basophils % % Neutrophils # (1.3-7.7) k/uL Lymphocytes # (1.0-4.8) k/uL Monocytes # (0-1.0) k/uL Eosinophils # (0-0.7) k/uL Basophils # (0-0.2) k/uL Sodium (137-145) mmol/L Potassium (3.5-5.1) mmol/L Chloride (98-107) mmol/L Carbon Dioxide (22-30) mmol/L Anion Gap mmol/L BUN (9-20) mg/dL Creatinine (0.66-1.25) mg/dL Est GFR (CKD-EPI)AfAm (>60 ml/min/1.73 sqM) Est GFR (CKD-EPI)NonAf (>60 ml/min/1.73 sqM) Glucose (74-99) mg/dL POC Glucose (mg/dL) 66 L 160 H 292 H (70-110) mg/dL POC Glu Equity Structurer MAKENZIE Almonte, Zuri Almonte, [facility] Claudia Calcium (8.4-10.2) mg/dL Total Bilirubin (0.2-1.3) mg/dL AST (17-59) U/L ALT (4-49) U/L Alkaline Phosphatase (38-126) U/L Total Protein (6.3-8.2) g/dL Albumin (3.5-5.0) g/dL Urine Color Urine Appearance (Clear) Urine pH (5.0-8.0) Ur Specific [place] (1.001-1.035) Urine Protein (Negative) Urine Glucose (UA) (Negative) Urine Ketones (Negative) Urine Blood (Negative) Urine Nitrite (Negative) Urine Bilirubin (Negative) Urine Urobilinogen (<2.0) mg/dL Ur Leukocyte Esterase (Negative) Salicylates mg/dL Urine Opiates Screen (NotDetected) Ur Oxycodone Screen (NotDetected) Urine Methadone Screen (NotDetected) Acetaminophen ug/mL Ur Barbiturates Screen (NotDetected) U Tricyclic Antidepress (NotDetected) Ur Phencyclidine Scrn (NotDetected) Ur Amphetamines Screen (NotDetected) U Methamphetamines Scrn (NotDetected) U Benzodiazepines Scrn (NotDetected) Urine Cocaine Screen (NotDetected) U Marijuana (THC) Screen (NotDetected) Serum Alcohol mg/dL SARS-CoV-2 (PCR) (Not Detectd) 10/04/23 Range/Units 12:48 WBC (3.8-10.6) k/uL RBC (4.30-5.90) m/uL Hgb (13.0-17.5) gm/dL Hct (39.0-53.0) % MCV (80.0-100.0) fL MCH (25.0-35.0) pg MCHC (31.0-37.0) g/dL RDW (11.5-15.5) % Plt Count (150-450) k/uL MPV Neutrophils % % Lymphocytes % % Monocytes % % Eosinophils % % Basophils % % Neutrophils # (1.3-7.7) k/uL Lymphocytes # (1.0-4.8) k/uL Monocytes # (0-1.0) k/uL Eosinophils # (0-0.7) k/uL Basophils # (0-0.2) k/uL Sodium (137-145) mmol/L Potassium (3.5-5.1) mmol/L Chloride (98-107) mmol/L Carbon Dioxide (22-30) mmol/L Anion Gap mmol/L BUN (9-20) mg/dL Creatinine (0.66-1.25) mg/dL Est GFR (CKD-EPI)AfAm (>60 ml/min/1.73 sqM) Est GFR (CKD-EPI)NonAf (>60 ml/min/1.73 sqM) Glucose (74-99) mg/dL POC Glucose (mg/dL) (70-110) mg/dL POC Glu Equity Structurer ID Calcium (8.4-10.2) mg/dL Total Bilirubin (0.2-1.3) mg/dL AST (17-59) U/L ALT (4-49) U/L Alkaline Phosphatase (38-126) U/L Total Protein (6.3-8.2) g/dL Albumin (3.5-5.0) g/dL Urine Color Urine Appearance (Clear) Urine pH (5.0-8.0) Ur Specific [place] (1.001-1.035) Urine Protein (Negative) Urine Glucose (UA) (Negative) Urine Ketones (Negative) Urine Blood (Negative) Urine Nitrite (Negative) Urine Bilirubin (Negative) Urine Urobilinogen (<2.0) mg/dL Ur Leukocyte Esterase (Negative) Salicylates mg/dL Urine Opiates Screen (NotDetected) Ur Oxycodone Screen (NotDetected) Urine Methadone Screen (NotDetected) Acetaminophen ug/mL Ur Barbiturates Screen (NotDetected) U Tricyclic Antidepress (NotDetected) Ur Phencyclidine Scrn (NotDetected) Ur Amphetamines Screen (NotDetected) U Methamphetamines Scrn (NotDetected) U Benzodiazepines Scrn (NotDetected) Urine Cocaine Screen (NotDetected) U Marijuana (THC) Screen (NotDetected) Serum Alcohol mg/dL SARS-CoV-2 (PCR) Not Detected (Not Detectd) Disposition Clinical Impression: Suicidal ideation, Poisoning by insulin and oral hypoglycemic [antidiabetic] drugs, intentional self-harm, initial encounter Disposition: ADMITTED IP TO THIS HOSP
[2023-10-03] MEDS: ACETAMINOPHEN TAB 500 MG TAB PO STA (20:48)
[2023-10-03 20:52] LABS: Basophils # (A) 0.1 k/uL (0-0.2); Basophils % (A) 1 %; Eosinophils # (A) 0.1 k/uL (0-0.7); Eosinophils % (A) 1 %; HCT 45.6 % (39.0-53.0); HGB 14.8 gm/dL (13.0-17.5); Lymphocytes # (A) 1.1 k/uL (1.0-4.8); Lymphocytes % (A) 8 %; MCH 29.4 pg (25.0-35.0); MCHC 32.4 g/dL (31.0-37.0); MCV 90.9 fL (80.0-100.0); Mean Platelet Volume 7.6; Monocytes # (A) 0.9 k/uL (0-1.0); Monocytes % (A) 6 %; Neutrophils # (A) 12.6 k/uL (1.3-7.7); Neutrophils % (A) 84 %; Platelet Count 364 k/uL (150-450); RBC 5.02 m/uL (4.30-5.90); RDW 13.2 % (11.5-15.5)
[2023-10-03 21:00] LABS: Glucose,Whole Blood 44 mg/dL (70-110)
[2023-10-03 21:01] LABS: Appearance,Urine Clear (Clear); Bilirubin,Urine Negative (Negative); Blood,Urine Negative (Negative); Color,Urine Light Yellow; Glucose,Urine (UA) 4+ (Negative); Ketones,Urine Negative (Negative); Leukocyte Esterase,Urine Negative (Negative); Nitrite,Urine Negative (Negative); Protein,Urine Negative (Negative); Specific Gravity,Urine 1.023 (1.001-1.035); Urobilinogen,Urine <2.0 mg/dL (<2.0)
[2023-10-03 21:16] LABS: Glucose,Whole Blood 73 mg/dL (70-110)
[2023-10-03] MEDS ORDERED: DEXTROSE 50% SYRINGE 50 ML IVP PRN ×2 (21:18)
[2023-10-03 21:25] LABS: ALT 15 U/L (4-49); AST 26 U/L (17-59); Acetaminophen <10.0 ug/mL; African American GFR (CKD) >90 (>60 ml/min/1.73 sqM); Albumin 4.5 g/dL (3.5-5.0); Alcohol <10 mg/dL; Alkaline Phosphatase 77 U/L (38-126); Anion Gap 6 mmol/L; Blood Urea Nitrogen 10 mg/dL (9-20); Calcium 9.9 mg/dL (8.4-10.2); Carbon Dioxide 27 mmol/L (22-30); Chloride 106 mmol/L (98-107); Non-African American GFR(CKD) >90 (>60 ml/min/1.73 sqM); Potassium 4.2 mmol/L (3.5-5.1); Salicylate <1.0 mg/dL; Sodium 139 mmol/L (137-145); Total Bilirubin 0.7 mg/dL (0.2-1.3); Total Protein 7.5 g/dL (6.3-8.2)
[2023-10-03 21:27] LABS: Glucose 44 mg/dL (74-99)
[2023-10-03 22:00] LABS: Amphetamine Screen,Urine Not Detected (NotDetected); Barbiturate Screen,Urine Not Detected (NotDetected); Benzodiazepines Screen,Urine Not Detected (NotDetected); Cocaine Screen,Urine Not Detected (NotDetected); Methadone Screen, Urine Not Detected (NotDetected); Opiate Screen,Urine Not Detected (NotDetected); Oxycodone Screen, Urine Not Detected (NotDetected); Phencyclidine Screen,Urine Not Detected (NotDetected); Tricyclic Antidepressant,Urine Not Detected (NotDetected); Urn Cannabinoid Scrn Not Detected (NotDetected)
[2023-10-03 22:04] LABS: Glucose,Whole Blood 238 mg/dL (70-110)
[2023-10-03 23:45] LABS: Glucose,Whole Blood 317 mg/dL (70-110)
[2023-10-04 02:07] LABS: Glucose,Whole Blood 247 mg/dL (70-110)
[2023-10-04 07:32] LABS: Glucose,Whole Blood 66 mg/dL (70-110)
[2023-10-04] MEDS: INSULIN ASPART (NovoLOG) 100 UNIT/ML VIAL SQ SCH ×2 (07:51→18:15)
[2023-10-04 08:05] LABS: Glucose,Whole Blood 160 mg/dL (70-110)
[2023-10-04 12:36] LABS: Glucose,Whole Blood 292 mg/dL (70-110)
[2023-10-04] MEDS ORDERED: haloperidoL 5 MG TAB PO PRN (14:29)
[2023-10-04] MEDS ORDERED: LORazepam 1 MG TAB PO PRN (14:29)
[2023-10-04] MEDS ORDERED: LORazepam 2 MG/ML INJ IM PRN (14:29)
[2023-10-04] MEDS ORDERED: ACETAMINOPHEN TAB 325 MG TAB PO PRN (14:29)
[2023-10-04] MEDS ORDERED: MAG HYDROX/AL HYDROX/SIMETH 355 ML BOTTLE PO PRN (14:29)
[2023-10-04] MEDS ORDERED: MAGNESIUM HYDROXIDE 2,400 MG/30 ML CUP PO PRN (14:29)
[2023-10-04] MEDS ORDERED: IBUPROFEN 600 MG TAB PO PRN (14:29)
[2023-10-04] MEDS ORDERED: HALOPERIDOL LACTATE 5 MG/ML 1 ML VIAL IM PRN (14:29)
[2023-10-04 17:37] LABS: Glucose,Whole Blood 366 mg/dL (70-110)
[2023-10-04 20:12] LABS: Glucose,Whole Blood 251 mg/dL (70-110)
[2023-10-04] MEDS: traZODone HCL 50 MG TAB PO PRN (20:53)
[2023-10-05 08:03] LABS: Glucose,Whole Blood 258 mg/dL (70-110)
[2023-10-05] MEDS: INSULIN DETEMIR (LEVEMIR) 100 UNIT/ML SYR SQ SCH (08:08)
[2023-10-05 10:26] LABS: Glucose,Whole Blood 269 mg/dL (70-110)
[2023-10-05] MEDS: SERTRALINE 50 MG TAB PO SCH (12:12)
--- NOTE | 2023-10-05 12:37 | P.HP ---
Psychiatric H&P - . H&P Date: 10/05/23 History & Physical: Allergies Allergy/AdvReac Type Severity Reaction Status Date / Time amphetamine aspartate AdvReac very Verified 10/04/23 12:29 [From Adderall] violent amphetamine sulfate AdvReac very Verified 10/04/23 12:29 [From Adderall] violent dextroamphetamine saccharate AdvReac very Verified 10/04/23 12:29 [From Adderall] violent dextroamphetamine sulfate AdvReac very Verified 10/04/23 12:29 [From Adderall] violent Vital Signs Temp 98.4 F 10/05/23 06:40 Pulse 62 10/05/23 06:40 Resp 16 10/05/23 06:40 BP 110/58 10/05/23 06:40 Pulse Ox 97 10/04/23 15:30 FiO2 Intake & Output 10/04/23 10/05/23 10/05/23 18:59 06:59 18:59 Weight 58.145 kg Laboratory Last Values WBC 15.0 k/uL (3.8-10.6) H 10/03/23 20: RBC 5.02 m/uL (4.30-5.90) 10/03/23 20:27 Hgb 14.8 gm/dL (13.0-17.5) 10/03/23 20: Hct 45.6 % (39.0-53.0) 10/03/23 20: MCV 90.9 fL (80.0-100.0) 10/03/23 20: MCH 29.4 pg (25.0-35.0) 10/03/23 20: MCHC 32.4 g/dL (31.0-37.0) 10/03/23 20: RDW 13.2 % (11.5-15.5) 10/03/23 20: Plt Count 364 k/uL (150-450) 10/03/23 20: MPV 7.6 10/03/23 20: Neutrophils % 84 % 10/03/23 20: Lymphocytes % 8 % 10/03/23 20:27 Monocytes % 6 % 10/03/23 20: Eosinophils % 1 % 10/03/23 20: Basophils % 1 % 10/03/23 20:27 Neutrophils # 12.6 k/uL (1.3-7.7) H 10/03/23 20:27 Lymphocytes # 1.1 k/uL (1.0-4.8) 10/03/23 20: Monocytes # 0.9 k/uL (0-1.0) 10/03/23 20:27 Eosinophils # 0.1 k/uL (0-0.7) 10/03/23 20:27 Basophils # 0.1 k/uL (0-0.2) 10/03/23 20:27 Sodium 139 mmol/L (137-145) 10/03/23 20:27 Potassium 4.2 mmol/L (3.5-5.1) 10/03/23 20: Chloride 106 mmol/L (98-107) 10/03/23 20: Carbon Dioxide 27 mmol/L (22-30) 10/03/23 20: Anion Gap 6 mmol/L 10/03/23 20:27 BUN 10 mg/dL (9-20) 10/03/23 20: Creatinine 0.57 mg/dL (0.66-1.25) L 10/03/23 20:27 Est GFR (CKD-EPI)AfAm >90 (>60 ml/min/1.73 sqM) 10/03/23 20: Est GFR (CKD-EPI)NonAf >90 (>60 ml/min/1.73 sqM) 10/03/23 20:27 Glucose 44 mg/dL (74-99) L* 10/03/23 20:27 POC Glucose (mg/dL) 258 mg/dL (70-110) H 10/05/23 08:02 POC Glu Coat Presser ID Annia Zabala 10/05/23 08:02 Calcium 9.9 mg/dL (8.4-10.2) 10/03/23 20: Total Bilirubin 0.7 mg/dL (0.2-1.3) 10/03/23 20: AST 26 U/L (17-59) 10/03/23 20:27 ALT 15 U/L (4-49) 10/03/23 20:27 Alkaline Phosphatase 77 U/L (38-126) 10/03/23 20:27 Total Protein 7.5 g/dL (6.3-8.2) 10/03/23 20: Albumin 4.5 g/dL (3.5-5.0) 10/03/23 20: Urine Color Light Yellow 10/03/23 20: Urine Appearance Clear (Clear) 10/03/23 20: Urine pH 7.0 (5.0-8.0) 10/03/23 20:30 Ur Specific [place] 1.023 (1.001-1.035) 10/03/23 20: Urine Protein Negative (Negative) 10/03/23 20: Urine Glucose (UA) 4+ (Negative) H 10/03/23 20:30 Urine Ketones Negative (Negative) 10/03/23 20: Urine Blood Negative (Negative) 10/03/23 20: Urine Nitrite Negative (Negative) 10/03/23 20: Urine Bilirubin Negative (Negative) 10/03/23 20: Urine Urobilinogen <2.0 mg/dL (<2.0) 10/03/23 20: Ur Leukocyte Esterase Negative (Negative) 10/03/23 20: Salicylates <1.0 mg/dL 10/03/23 20:27 Urine Opiates Screen Not Detected (NotDetected) 10/03/23 20:30 Ur Oxycodone Screen Not Detected (NotDetected) 10/03/23 20:30 Urine Methadone Screen Not Detected (NotDetected) 10/03/23 20:30 Acetaminophen <10.0 ug/mL 10/03/23 20:27 Ur Barbiturates Screen Not Detected (NotDetected) 10/03/23 20:30 U Tricyclic Antidepress Not Detected (NotDetected) 10/03/23 20:30 Ur Phencyclidine Scrn Not Detected (NotDetected) 10/03/23 20:30 Ur Amphetamines Screen Not Detected (NotDetected) 10/03/23 20:30 U Methamphetamines Scrn Not Detected (NotDetected) 10/03/23 20:30 U Benzodiazepines Scrn Not Detected (NotDetected) 10/03/23 20:30 Urine Cocaine Screen Not Detected (NotDetected) 10/03/23 20:30 U Marijuana (THC) Screen Not Detected (NotDetected) 10/03/23 20:30 Serum Alcohol <10 mg/dL 10/03/23 20:27 SARS-CoV-2 (PCR) Not Detected (Not Detectd) 10/04/23 12:48 10/05/23 09:03 IDENTIFYING DATA: Patient is a 23-year-old male. Lives with maira and her family in a house. Has 1 child. Works at [employer]. HPI: Patient presented to the hospital on 10/02, after an attempted overdose on insulin. Patient was found unresponsive on the side of the road near a ditch. Patient states he was on his way to work when he overdosed on insulin. Patient states stressors are that his fiance broke up with him a week prior. He states he layed his son down for a nap, and he went to take a nap, and his son did not fall asleep, and when his fiance got home, the baby was awake, and she accused him of being neglectful, which led to her breaking up with him. States his mood lately has been depressed. States he gave himself 50 units of lantus, and 20 of novolog, then left for work on his bicycle. He states he started getting sleepy, and laid down on the side of the road, and does not remember anything else until he got to the hospital. Patient claims he is not currently feeling suicidal. Claims he slept well last night, and his appetite is good. Patient denies any suicidal or homicidal ideations intent or plan. At this time patient denies any auditory or visual hallucinations. Patient denies any flight of ideas racing thoughts and increased in goal directed behavior. Patients UDS negative, however, he stated he did smoke a wax pen a few days ago. He does smoke cigarettes. PAST PSYCHIATRIC HISTORY: Patient states that he is newly open was [facility]. States that he only sees a shoe parts caser there for therapy. Patient denies and previous inpatient psych hospitalizations. Patient denies being on any psychiatric medications. Patient attempted suicide by overdosing on insulin last March. PMH:As per ER note ALLERGIES: as per EMR CHEMICAL DEPENDENCY HISTORY: as per HPI FAMILY PSYCHIATRIC/SUBSTANCE USE HISTORY: denies SOCIAL HISTORY: Patient was born in [place] and raised in [place]. Patient only went to 6th grade in school. Has one 2 year old son. Is engaged, lives with deana family in a house. Works at [employer], and denies legal problems. MENTAL STATUS EXAM: General Appearance: Patient appears to be stated age, is alert, directable, and attempts to cooperate. Patient appears to have fair hygiene and grooming. Shaved head, facial hair, and wearing street clothes. Behavior: Patient is seated without any agitated behavior. Nonchalant regarding his overdose. Speech: Patient's speech is fluent and nonpressured. Mood/Affect: Patient reports their mood is depressed, affect is congruent and constricted. Suicidality/Homicidality: Patient denies having any homicidal ideation intent or plan. Denies any current suicidal ideations intent or plan Perceptions: Patient denies any visual hallucinations and denies any auditory hallucinations Though content/process:nThere is no evidence of any delusional thought content and thought process is linear and goal-directed. Memory and concentration: AOX3, grossly intact for the purposes of this session. Can spell "WORLD" backwards Judgment and insight: poor STRENGTHS/WEAKNESSES: strength is that patient is resilient. Weakness is that patient has poor judgment and is impulsive INTELLECT: average IMPRESSIONS: Suicide attempt by overdose of insulin major depressive disorder without psychotic features nicotine dependance cannabis use disorder type 1 diabetes PLAN: -Patient is admitted under voluntary status to [facility]HU for stabilization of psychiatric symptoms and safety. Patient has signed adult voluntary form and medication consent and is placed in patient's chart. -Medications : Will start patient on Zoloft 50mg daily for mood/depression trazodone 50mg qhs for sleep -Ativan and Haldol PRN for agitation/aggression -Patient was informed of the risks, benefits and side effects of the medication and patient verbally consented to taking the medications. -Internal Medicine consult to perform medical evaluation and physical. -NRT - nicotine patch -SW on board for discharge planning. Encourage patient to participate in groups to work on coping skills. 10/05/23 11:54 10/05/23 12:36
[2023-10-05 12:44] LABS: Glucose,Whole Blood 177 mg/dL (70-110)
--- NOTE | 2023-10-05 14:56 | P.MDCNMH ---
History of Present Illness H&P Date: 10/05/23 This is a pleasant 23-year-old male who presented to the emergency department with suicidal ideation and attempts at overdosing on his insulin. Patient is a type I diabetic wears an insulin pump and follows with Dr. Rosie smyth in the outpatient setting along with family practice provider Dr. Albin Bravo. Patient reports to a past medical history of diabetes mellitus, ADD/ADHD, depression, tobacco use, occasional marijuana use with vaping, and denies alcohol use. Patient apparently has been having issues with his fiance and she recently broke up with him and has been increasingly depressed and having suicidal thoughts. Patient reports he attempted to overdose on insulin. Patient evaluated in the ER and medically stable has been transition to [facility]. for further psychiatric evaluation. Patient was voluntary. Patient was found in a ditch per ER documentation with a blood sugar in the 20s on admission patient had a blood sugar of 44. Labs reviewed and white count was 15 likely reactive, hemoglobin is 14.8, platelets are 364, sodium 139 with a potassium of 4.2, BUN 10, anion 6, creatinine 0.57, LFTs within normal limits urinalysis was negative, COVID was negative and drug screen panel was negative as well. REVIEW OF SYSTEMS: CONSTITUTIONAL: No fever, no malaise, no fatigue. HEENT: No recent visual problems or hearing problems. Denied any sore throat. CARDIOVASCULAR: No chest pain, orthopnea, PND, no palpitations, no syncope. PULMONARY: No shortness of breath, no cough, no hemoptysis. GASTROINTESTINAL: No diarrhea, no nausea, no vomiting, no abdominal pain. NEUROLOGICAL: No headaches, no weakness, no numbness. HEMATOLOGICAL: Denies any bleeding or petechiae. GENITOURINARY: Denies any burning micturition, frequency, or urgency. MUSCULOSKELETAL/RHEUMATOLOGICAL: Denies any joint pain, swelling, or any muscle pain. ENDOCRINE: Denies any polyuria or polydipsia. Reports hypoglycemia secondary to intentional overdose The rest of the 14-point review of systems is negative. PHYSICAL EXAMINATION: GENERAL: The patient is alert and oriented x3, not in any acute distress. Thin built, well developed, well nourished. HEENT: Pupils are round and equally reacting to light. EOMI. No scleral icterus. No conjunctival pallor. Normocephalic, atraumatic. No pharyngeal erythema. No thyromegaly. CARDIOVASCULAR: S1 and S2 present. No murmurs, rubs, or gallops. PULMONARY: Chest is clear to auscultation, no wheezing or crackles. ABDOMEN: Soft, nontender, nondistended, normoactive bowel sounds. No palpable organomegaly. MUSCULOSKELETAL: No joint swelling or deformity. EXTREMITIES: No cyanosis, clubbing, or pedal edema. NEUROLOGICAL: Gross neurological examination did not reveal any focal deficits. SKIN: No rashes. Assessment: Suicidal ideation with attempted overdose with his insulin Type 1 diabetes mellitus, insulin-dependent uses a pump History of depression History of ADD/ADHD Continued ongoing nicotine use THC use with vaping GI prophylaxis Full code Plan: Patient presented to the emergency department with intentional suicide overdose with insulin. Patient is a type I diabetic and uses an insulin pump and follows with endocrine outpatient Patient was voluntarily admitted to [facility] for further psychiatric evaluation and will need outpatient follow-up with [facility] Will hold insulin pump for now, continue monitoring Accu-Cheks before meals and at bedtime and 2 AM as needed and will use sliding scale along with long-acting. Adjust accordingly Discussed with the patient about participating in group therapy sessions and compliance with medications including psychiatry evaluation Patient reports to tolerating diet with no reported nausea or vomiting Smoking cessation has been discussed Thank you currently for this consultation Please do not hesitate to contact us as needed. The impression and plan of care has been dictated by Annia Brand, Nurse Practitioner as directed. Dr. Dodie MD I have performed a history and examination and MDM of this patient, discussed the same with the dictator, and agree with the dictator's assessment and plan as written ,documented as a scribe. Based on total visit time, I have performed more than 50% of the visit. Past Medical History Past Medical History: Diabetes Mellitus Additional Past Medical History / Comment(s): pt has type 1 DM. pt has insulin pump at home, but has been without supplies for "a couple months" and is expecting them to be delivered within the next couple of weeks (10/04/23) History of Any Multi-Drug Resistant Organisms: None Reported Past Surgical History: No Surgical Hx Reported Past Anesthesia/Blood Transfusion Reactions: No Reported Reaction Past Psychological History: ADD/ADHD Smoking Status: Current every day smoker Past Alcohol Use History: None Reported Past Drug Use History: Marijuana Medications and Allergies Home Medications Medication Instructions Recorded Confirmed Type Glucagon [Gvoke Pfs 1-Pack Syringe] 1 mg SQ DIRECTED PRN 10/04/23 10/04/23 History Insulin Aspart (For Pump) [NovoLOG 0.01 unit SQ-PUMP DIRECTED 10/04/23 10/04/23 History (For Pump)] Insulin Aspart [NovoLOG Flexpen] See Protocol SQ ACHS 10/04/23 10/04/23 History Insulin Glargine,Hum.rec.anlog 40 units SQ DAILY 10/04/23 10/04/23 History [Lantus Solostar Pen] Allergies Allergy/AdvReac Type Severity Reaction Status Date / Time amphetamine aspartate AdvReac very Verified 10/04/23 12:29 [From Adderall] violent amphetamine sulfate AdvReac very Verified 10/04/23 12:29 [From Adderall] violent dextroamphetamine saccharate AdvReac very Verified 10/04/23 12:29 [From Adderall] violent dextroamphetamine sulfate AdvReac very Verified 10/04/23 12:29 [From Adderall] violent Physical Exam Vitals: Vital Signs Temp Pulse Resp BP Pulse Ox 10/05/23 06:40 98.4 F 62 16 110/58 10/04/23 15:30 97.7 F 72 14 118/74 97 Intake and Output 10/04/23 10/05/23 10/05/23 22:59 06:59 14:59 Other: Weight 58.145 kg Cranial Nerve Examination - Cranial Nerves Cranial Nerve I- Olfactory: Intact Cranial Nerve II- Optic: Intact Cranial Nerve III- Oculomotor: Intact Cranial Nerve IV- Trochlear: Intact Cranial Nerve V- Trigeminal: Intact Cranial Nerve - Abducens: Intact Cranial Nerve VII- Facial: Intact Cranial Nerve VIII- Auditory: Intact Cranial Nerve IX- Glossopharyngeal: Intact Cranial Nerve X- Vagus: Intact Cranial Nerve XI- Accessory: Intact Cranial Nerve XII- Hypoglossal: Intact Results CBC & Chem 7: 10/03/23 20:27 10/03/23 20:27 Labs: Abnormal Lab Results - Last 24 Hours (Table) 10/04/23 10/04/23 10/04/23 Range/Units 12:34 17:35 20:10 POC Glucose (mg/dL) 292 H 366 H 251 H (70-110) mg/dL 10/05/23 Range/Units 08:02 POC Glucose (mg/dL) 258 H (70-110) mg/dL Assessment and Plan Time with Patient: Less than 30
[2023-10-05 17:41] LABS: Glucose,Whole Blood 226 mg/dL (70-110)
[2023-10-05 21:30] LABS: Glucose,Whole Blood 218 mg/dL (70-110)
[2023-10-05] MEDS: traZODone HCL 50 MG TAB PO SCH (21:36)
[2023-10-06 07:49] LABS: Glucose,Whole Blood 50 mg/dL (70-110)
[2023-10-06 08:09] LABS: Glucose,Whole Blood 68 mg/dL (70-110)
[2023-10-06 08:27] LABS: Glucose,Whole Blood 192 mg/dL (70-110)
[2023-10-06 09:16] LABS: Glucose,Whole Blood 358 mg/dL (70-110)
[2023-10-06 10:37] LABS: Glucose,Whole Blood 363 mg/dL (70-110)
--- NOTE | 2023-10-06 11:51 | P.PN ---
Progress Note - Text Progress Note Date: 10/06/23 Interval History: Patient was seen in group and was directable and agreeable to speak with teletypewriter operator in the office. Patient states he feels like he is doing much better than when he first came in. Patient states that he is sleeping well at night. There is a large fluctuation in patients blood glucose levels, patient stated that he has his insulin pump at home, and he will be using it again upon discharge. Patient is attending groups, and he is eating meals. Patient is focused on discharge, teletypewriter operator told patient that he will possibly be able to go home Wednesday, if he continues to improve. At this time patient denies any suicidal or homical ideations, intent or plan. Patient denies any auditory, visual hallucinations and denies any paranoia or delusions. Patient denies any side effects from the medications and has been compliant with meds. MENTAL STATUS EXAM: General Appearance: Patient appears to be stated age, is alert, directable, and attempts to cooperate. Patient appears to have fair hygiene and grooming. Shaved head, facial hair, and wearing street clothes. Behavior: Patient is seated without any agitated behavior. Nonchalant regarding his overdose. Improving mildly Speech: Patient's speech is fluent and nonpressured. Mood/Affect: Patient reports their mood is improving mildly, affect is congruent and constricted. Suicidality/Homicidality: Patient denies having any homicidal ideation intent or plan. Denies any current suicidal ideations intent or plan Perceptions: Patient denies any visual hallucinations and denies any auditory hallucinations Though content/process:nThere is no evidence of any delusional thought content and thought process is linear and goal-directed. Memory and concentration: AOX3, grossly intact for the purposes of this session. Judgment and insight: poor, improving mildly IMPRESSIONS: Suicide attempt by overdose of insulin major depressive disorder without psychotic features nicotine dependance cannabis use disorder type 1 diabetes PLAN: -Patient is admitted under voluntary status to [facility] for stabilization of psychiatric symptoms and safety. -Medications : Zoloft 50mg daily for mood/depression, trazodone 50mg qhs for sleep -Ativan and Haldol PRN for agitation/aggression -NRT - nicotine patch -SW on board for discharge planning. Encourage patient to participate in groups to work on coping skills. Likely discharge Wednesday, if patient continues to improve.
[2023-10-06 12:47] LABS: Glucose,Whole Blood 170 mg/dL (70-110)
[2023-10-06 17:41] LABS: Glucose,Whole Blood 71 mg/dL (70-110)
[2023-10-06 20:12] LABS: Glucose,Whole Blood 264 mg/dL (70-110)
[2023-10-07 07:39] LABS: Glucose,Whole Blood 273 mg/dL (70-110)
--- NOTE | 2023-10-07 09:12 | P.PN ---
Progress Note - Text Progress Note Date: 10/07/23 Interval History: Patient was seen in group and was directable and agreeable to speak with gag writer in the office. Patient claims that he slept fairly last night. Patient states he is doing pretty good today. Patients hygiene is improving. Patient is attending groups, and he is eating meals. Patient is focused on discharge, gag writer told patient that he will more than likely be discharged tomorrow. He appears to have improvement in his affect. At this time patient denies any suicidal or homicidal ideations, intent or plan. Patient denies any auditory, visual hallucinations and denies any paranoia or delusions. Patient denies any side effects from the medications and has been compliant with meds. MENTAL STATUS EXAM: General Appearance: Patient appears to be stated age, is alert, directable, and attempts to cooperate. Patient appears to have fair hygiene and grooming. Shaved head, facial hair, and wearing street clothes. Behavior: Patient is seated without any agitated behavior. Nonchalant regarding his overdose. Improving mildly Speech: Patient's speech is fluent and nonpressured. Mood/Affect: Patient reports their mood is improving, affect is congruent and constricted. Suicidality/Homicidality: Patient denies having any homicidal ideation intent or plan. Denies any suicidal ideations intent or plan Perceptions: Patient denies any visual hallucinations and denies any auditory hallucinations Though content/process:There is no evidence of any delusional thought content and thought process is linear and goal-directed. Appears to be mildly more future oriented today. Memory and concentration: AOX3, grossly intact for the purposes of this session. Judgment and insight:improving IMPRESSIONS: Suicide attempt by overdose of insulin major depressive disorder without psychotic features nicotine dependance cannabis use disorder type 1 diabetes PLAN: -Patient is admitted under voluntary status to [facility] for stabilization of psychiatric symptoms and safety. -Medications : Zoloft 50mg daily for mood/depression, trazodone 50mg qhs for sleep -Ativan and Haldol PRN for agitation/aggression -NRT - nicotine patch -SW on board for discharge planning. Encourage patient to participate in groups to work on coping skills. Discharge tomorrow, if patient continues to improve.
[2023-10-07 12:40] LABS: Glucose,Whole Blood 117 mg/dL (70-110)
[2023-10-07 17:45] LABS: Glucose,Whole Blood 88 mg/dL (70-110)
[2023-10-07 19:42] LABS: Glucose,Whole Blood 233 mg/dL (70-110)
[2023-10-08 06:34] VITALS: BP 103/56; PULSE 68; RESP 16; TEMP 97.2
[2023-10-08 07:44] LABS: Glucose,Whole Blood 44 mg/dL (70-110)
[2023-10-08 08:21] LABS: Glucose,Whole Blood 95 mg/dL (70-110)
[2023-10-08 11:52] LABS: Glucose,Whole Blood 40 mg/dL (70-110)
[2023-10-08 11:52] LABS: Glucose,Whole Blood 36 mg/dL (70-110)
--- NOTE | 2023-10-08 11:59 | P.DS ---
Providers Date of admission: 10/04/23 14:22 Expected date of discharge: 10/08/23 Attending physician: Lex Hebert MD Consults: 10/04/23 14:29 Consult Physician Routine Consulting Provider: Shanell Bravo Consult Reason/Comments: H&P and medical Do you want consulting provider notified?: Yes Primary care physician: [facility] Course: Admission HPI: Admission note was completed by Dr. Hebert: "IDENTIFYING DATA: Patient is a 23-year-old male. Lives with maira and her family in a house. Has 1 child. Works at [employer]. HPI: Patient presented to the hospital on 10/02, after an attempted overdose on insulin. Patient was found unresponsive on the side of the road near a ditch. Patient states he was on his way to work when he overdosed on insulin. Patient states stressors are that his fiance broke up with him a week prior. He states he layed his son down for a nap, and he went to take a nap, and his son did not fall asleep, and when his fiance got home, the baby was awake, and she accused him of being neglectful, which led to her breaking up with him. States his mood lately has been depressed. States he gave himself 50 units of lantus, and 20 of novolog, then left for work on his bicycle. He states he started getting sleepy, and laid down on the side of the road, and does not remember anything else until he got to the hospital. Patient claims he is not currently feeling suicidal. Claims he slept well last night, and his appetite is good. Patient denies any suicidal or homicidal ideations intent or plan. At this time patient denies any auditory or visual hallucinations. Patient denies any flight of ideas racing thoughts and increased in goal directed behavior. Patients UDS negative, however, he stated he did smoke a wax pen a few days ago. He does smoke cigarettes. PAST PSYCHIATRIC HISTORY: Patient states that he is newly open was [facility]. States that he only sees a case investigator there for therapy. Patient denies and previous inpatient psych hospitalizations. Patient denies being on any psychiatric medications. Patient attempted suicide by overdosing on insulin last March. PMH:As per ER note ALLERGIES: as per EMR CHEMICAL DEPENDENCY HISTORY: as per HPI FAMILY PSYCHIATRIC/SUBSTANCE USE HISTORY: denies SOCIAL HISTORY: Patient was born in [place] and raised in [place]. Patient only went to 6th grade in school. Has one 2 year old son. Is engaged, lives with fiances family in a house. Works at [employer], and denies legal problems. MENTAL STATUS EXAM: General Appearance: Patient appears to be stated age, is alert, directable, and attempts to cooperate. Patient appears to have fair hygiene and grooming. Shaved head, facial hair, and wearing street clothes. Behavior: Patient is seated without any agitated behavior. Nonchalant regarding his overdose. Speech: Patient's speech is fluent and nonpressured. Mood/Affect: Patient reports their mood is depressed, affect is congruent and constricted. Suicidality/Homicidality: Patient denies having any homicidal ideation intent or plan. Denies any current suicidal ideations intent or plan Perceptions: Patient denies any visual hallucinations and denies any auditory hallucinations Though content/process:nThere is no evidence of any delusional thought content and thought process is linear and goal-directed. Memory and concentration: AOX3, grossly intact for the purposes of this session. Can spell "WORLD" backwards Judgment and insight: poor ]" Hospital course: Upon admission to the unit patient was directable and agreeable to commence treatment and signed adult voluntary form. Patient got along well with other patients on the unit and followed unit protocol. Patient was compliant with the medications and denied any side effects throughout hospital course. Patient was started on Zoloft 50 mg daily and Trazodone 50 mg QHS. Patient spoke of his stressors and engaged in therapy both group and individual. Patient was also seen by medical team for history and physical exam. Throughout the course of the hospitalization patient gradually improved with regards to mood, anxiety, sleep and returned back to their baseline level of functioning. On the day of discharge patient denied any suicidal or homicidal ideation, intent or plan denied any auditory or visual hallucinations. Patient endorsed wanting to live for his health and family. The patient denied any access to guns or weapons. Patient denied any paranoia and did not endorse any delusions. Patient does have a history of substance abuse (cannabis) was counseled on abstaining from all substances including alcohol and marijuana. Patient was also counseled on the medications and need for regular compliance and was encouraged to follow-up with their outpatient appointment for mental health and also for primary care. Prior to discharge a family meeting will be arranged by social work instructor to answer any questions and ensure safety upon discharge. Mental status exam: General Appearance: Patient appears to be stated age, slender adult male. Patient is in no acute distress and has improved hygiene and grooming Behavior: Patient is calm without any agitated behavior. Speech: Patient's speech is fluent and non-pressured. Mood/Affect: Patient reports their mood is "better", affect is congruent and euthymic. Suicidality/Homicidality: Patient denies having any suicidal or homicidal ideation intent or plan. Perceptions: Patient denies any auditory or visual hallucinations. Though content/process: There is no evidence of any delusional thought content and thought process is linear and goal-directed, more future oriented. Memory and concentration: AOX3, grossly intact for the purposes of this session. Judgment and insight: improved with guarded prognosis Impression: Suicide attempt by overdose of insulin Major depressive disorder without psychotic features Nicotine dependance Cannabis use disorder Type 1 diabetes Plan: -Continue with discharge today as patient has improved and stabilized psychiatrically and is not currently an imminent threat to himself and/or others. Patient will remain at chronically elevated risk for harm to self and/or others due to his impulsivity, chronic medical illness and substance abuse. -Continue medications: Zoloft 50 mg daily Trazodone 50 mg daily -Patient was counseled on the need for medication compliance and appropriate follow-up at mental health and also primary care for medical issues. Patient verbalized understanding and agreed. -Social work to arrange for and conduct family meeting to ensure safety upon discharge and answer any questions/concerns. Social work also to arrange for patients follow up appointments with [facility] for psychiatric care along with follow up with primary care provider. -Patient counseled on abstaining from recreational drugs and marijuana and alcohol. -Patient was instructed to return to the hospital or seek immediate medical care if their psychiatric or medical symptoms do worsen or reoccur. [ Vital Signs (72 hours) 10/06/23 10/08/23 06:51 06:13 Temperature 97.4 F L 97.2 F L Pulse Rate [ 62 68 Pulse Oximetery ] Respiratory 14 16 Rate Blood Pressure 95/52 103/56 [Right Arm] O2 Sat by Pulse 99 Oximetry Laboratory Results WBC 15.0 k/uL (3.8-10.6) H 10/03/23 20: RBC 5.02 m/uL (4.30-5.90) 10/03/23 20: Hgb 14.8 gm/dL (13.0-17.5) 10/03/23 20: Hct 45.6 % (39.0-53.0) 10/03/23 20: MCV 90.9 fL (80.0-100.0) 10/03/23 20: MCH 29.4 pg (25.0-35.0) 10/03/23 20: MCHC 32.4 g/dL (31.0-37.0) 10/03/23: RDW 13.2 % (11.5-15.5) 10/03/23: Plt Count 364 k/uL (150-450) 10/03/23 20: MPV 7.6 10/03/23 20: Neutrophils % 84 % 10/03/23 20: Lymphocytes % 8 % 10/03/23 20: Monocytes % 6 % 10/03/23 20: Eosinophils % 1 % 10/03/23 20: Basophils % 1 % 10/03/23 20: Neutrophils # 12.6 k/uL (1.3-7.7) H 10/03/23 20: Lymphocytes # 1.1 k/uL (1.0-4.8) 10/03/23 20: Monocytes # 0.9 k/uL (0-1.0) 10/03/23 20: Eosinophils # 0.1 k/uL (0-0.7) 10/03/23 20: Basophils # 0.1 k/uL (0-0.2) 10/03/23 20: Sodium 139 mmol/L (137-145) 10/03/23 20: Potassium 4.2 mmol/L (3.5-5.1) 10/03/23 20: Chloride 106 mmol/L (98-107) 10/03/23 20: Carbon Dioxide 27 mmol/L (22-30) 10/03/23 20: Anion Gap 6 mmol/L 10/03/23 20: BUN 10 mg/dL (9-20) 10/03/23 20:27 Creatinine 0.57 mg/dL (0.66-1.25) L 10/03/23 20:27 Est GFR (CKD-EPI)AfAm >90 (>60 ml/min/1.73 sqM) 10/03/23 20: Est GFR (CKD-EPI)NonAf >90 (>60 ml/min/1.73 sqM) 10/03/23 20: Glucose 44 mg/dL (74-99) L* 10/03/23 20:27 POC Glucose (mg/dL) 40 mg/dL (70-110) L 10/08/23 11:51 POC Glu Supervisor Personnel Clerks ID Annia Zabala 10/08/23 11:[address] Glu mg/dL 206 mg/dL 10/07/23 12:12 Hemoglobin A1c 8.8 % (<=6.0) H 10/07/23 12:12 Calcium 9.9 mg/dL (8.4-10.2) 10/03/23 20: Total Bilirubin 0.7 mg/dL (0.2-1.3) 10/03/23 20: AST 26 U/L (17-59) 10/03/23 20: ALT 15 U/L (4-49) 10/03/23 20: Alkaline Phosphatase 77 U/L (38-126) 10/03/23 20: Total Protein 7.5 g/dL (6.3-8.2) 10/03/23 20: Albumin 4.5 g/dL (3.5-5.0) 10/03/23 20: Urine Color Light Yellow 10/03/23 20:30 Urine Appearance Clear (Clear) 10/03/23 20: Urine pH 7.0 (5.0-8.0) 10/03/23 20: Ur Specific [place] 1.023 (1.001-1.035) 10/03/23 20: Urine Protein Negative (Negative) 10/03/23 20: Urine Glucose (UA) 4+ (Negative) H 10/03/23 20: Urine Ketones Negative (Negative) 10/03/23 20: Urine Blood Negative (Negative) 10/03/23 20: Urine Nitrite Negative (Negative) 10/03/23 20:30 Urine Bilirubin Negative (Negative) 10/03/23 20:30 Urine Urobilinogen <2.0 mg/dL (<2.0) 10/03/23 20:30 Ur Leukocyte Esterase Negative (Negative) 10/03/23 20:30 Salicylates <1.0 mg/dL 10/03/23 20:27 Urine Opiates Screen Not Detected (NotDetected) 10/03/23 20:30 Ur Oxycodone Screen Not Detected (NotDetected) 10/03/23 20:30 Urine Methadone Screen Not Detected (NotDetected) 10/03/23 20:30 Acetaminophen <10.0 ug/mL 10/03/23 20:27 Ur Barbiturates Screen Not Detected (NotDetected) 10/03/23 20:30 U Tricyclic Antidepress Not Detected (NotDetected) 10/03/23 20:30 Ur Phencyclidine Scrn Not Detected (NotDetected) 10/03/23 20:30 Ur Amphetamines Screen Not Detected (NotDetected) 10/03/23 20:30 U Methamphetamines Scrn Not Detected (NotDetected) 10/03/23 20:30 U Benzodiazepines Scrn Not Detected (NotDetected) 10/03/23 20:30 Urine Cocaine Screen Not Detected (NotDetected) 10/03/23 20:30 U Marijuana (THC) Screen Not Detected (NotDetected) 10/03/23 20:30 Serum Alcohol <10 mg/dL 10/03/23 20:27 SARS-CoV-2 (PCR) Not Detected (Not Detectd) 10/04/23 12:48 Patient Condition at Discharge: Good Plan - Discharge Summary Discharge Rx Participant: Yes New Discharge Prescriptions: New traZODone HCL [Desyrel] 50 mg PO HS 30 Days #30 tab Sertraline [Zoloft] 50 mg PO DAILY 30 Days #30 tab Continue Insulin Aspart (For Pump) [NovoLOG (For Pump)] 0.01 unit SQ-PUMP DIRECTED Glucagon [Gvoke Pfs 1-Pack Syringe] 1 mg SQ DIRECTED PRN PRN Reason: Blood Sugar - Low Insulin Aspart [NovoLOG Flexpen] See Protocol SQ ACHS Insulin Glargine,Hum.rec.anlog [Lantus Solostar Pen] 40 units SQ DAILY Discharge Medication List Glucagon [Gvoke Pfs 1-Pack Syringe] 1 mg SQ DIRECTED PRN 10/04/23 [History] Insulin Aspart (For Pump) [NovoLOG (For Pump)] 0.01 unit SQ-PUMP DIRECTED 10/04/23 [History] Insulin Aspart [NovoLOG Flexpen] See Protocol SQ ACHS 10/04/23 [History] Insulin Glargine,Hum.rec.anlog [Lantus Solostar Pen] 40 units SQ DAILY 10/04/23 [History] Sertraline [Zoloft] 50 mg PO DAILY 30 Days #30 tab 10/08/23 [Rx] traZODone HCL [Desyrel] 50 mg PO HS 30 Days #30 tab 10/08/23 [Rx] Follow up Appointment(s)/Referral(s): [facility] [Outside] - 10/12/23 11:00 am (10/11 @ 11am [facility] pt will need to schedule appt with doctor) Pj Velez MD [REFERRING] - 1 Week (Office closed on Wednesday, Please call to schedule follow up ) Brittany Beckwith MD [Primary Care Provider] - 1-2 days Patient Instructions/Handouts: How to Stop Smoking (DC), Depression (DC), Cannabis Abuse (DC), Diabetes and Nutrition (DC), Diabetes Type 1: Management (DC) Activity/Diet/Wound Care/Special Instructions: Avoid the use of street drugs and alcohol. Take all medications as prescribed. When you are in need of refills on your medications, please contact your medical provider and/or outpatient psychiatrist/provider to have this done. Please go to your scheduled outpatient appointment for aftercare treatment. If symptoms return or become worse, call the crisis line at and/or go to the nearest emergency room for evaluation. National Suicide Hotline 284.
[2023-10-08 12:09] LABS: Glucose,Whole Blood 79 mg/dL (70-110)
== END 2023-10-08 12:40 | disposition home or self-care (01) | DRG 817 ==
LOC: EC 19:44 → 3MHU 10-04 14:22
PROVIDERS: ADMIT Psychiatry & Neurology Psychiatry; ATTEND Psychiatry & Neurology Psychiatry
DX: T38.3X2A Poisoning by insulin and oral hypoglycemic [antidiabetic] drugs, intentional self-harm, initial encounter (principal); F33.9 Major depressive disorder, recurrent, unspecified; F17.210 Nicotine dependence, cigarettes, uncomplicated; F12.10 Cannabis abuse, uncomplicated; R45.851 Suicidal ideations; E10.649 Type 1 diabetes mellitus with hypoglycemia without coma; Z79.4 Long term (current) use of insulin; F90.9 Attention-deficit hyperactivity disorder, unspecified type; Z79.899 Other long term (current) drug therapy; Z96.41 Presence of insulin pump (external) (internal); Z91.51 Personal history of suicidal behavior; Z71.51 Drug abuse counseling and surveillance of drug abuser; Z71.6 Tobacco abuse counseling
CPT/HCPCS: 36415; 80053; 80143; 80179; 80306; 80320; 81003; 82075; 83036; 85025; 87635; 99285

== ENCOUNTER 2023-12-25 10:09 | Inpatient (IN) | payer OTHER ==
[2023-12-25 10:16] LABS: Glucose,Whole Blood 28 mg/dL (70-110)
[2023-12-25] MEDS: DEXTROSE 50% SYRINGE 50 ML IVP STA (10:26)
[2023-12-25 10:31] LABS: Glucose,Whole Blood 177 mg/dL (70-110)
[2023-12-25 10:35] LABS: Glucose,Whole Blood 126 mg/dL (70-110)
[2023-12-25 10:41] LABS: Basophils % (A) 0 %; Eosinophils # (A) 0.1 k/uL (0-0.7); Eosinophils % (A) 1 %; HCT 41.7 % (39.0-53.0); HGB 13.7 gm/dL (13.0-17.5); Lymphocytes # (A) 1.3 k/uL (1.0-4.8); Lymphocytes % (A) 12 %; MCH 29.7 pg (25.0-35.0); MCHC 32.9 g/dL (31.0-37.0); MCV 90.3 fL (80.0-100.0); Mean Platelet Volume 7.7; Monocytes # (A) 0.6 k/uL (0-1.0); Monocytes % (A) 6 %; Neutrophils # (A) 8.6 k/uL (1.3-7.7); Neutrophils % (A) 79 %; Platelet Count 373 k/uL (150-450); RBC 4.61 m/uL (4.30-5.90); RDW 12.9 % (11.5-15.5); WBC 10.9 k/uL (3.8-10.6)
[2023-12-25 10:43] LABS: Glucose,Whole Blood 243 mg/dL (70-110)
[2023-12-25 10:44] LABS: Glucose,Whole Blood 93 mg/dL (70-110)
[2023-12-25 10:47] LABS: Glucose,Whole Blood 89 mg/dL (70-110)
[2023-12-25] MEDS: ONDANSETRON 4 MG/2 ML VIAL IVP STA (10:49)
[2023-12-25 10:56] LABS: ALT 13 U/L (4-49); AST 24 U/L (17-59); African American GFR (CKD) >90 (>60 ml/min/1.73 sqM); Alcohol <10 mg/dL; Alkaline Phosphatase 63 U/L (38-126); Anion Gap 9 mmol/L; Blood Urea Nitrogen 7 mg/dL (9-20); Calcium 9.3 mg/dL (8.4-10.2); Carbon Dioxide 21 mmol/L (22-30); Chloride 104 mmol/L (98-107); Glucose 132 mg/dL (74-99); Non-African American GFR(CKD) >90 (>60 ml/min/1.73 sqM); Potassium 3.4 mmol/L (3.5-5.1); Sodium 134 mmol/L (137-145); Total Bilirubin 0.6 mg/dL (0.2-1.3); Total Protein 6.4 g/dL (6.3-8.2)
[2023-12-25 10:56] LABS: Glucose,Whole Blood 237 mg/dL (70-110)
[2023-12-25] MEDS: DEXTROSE 10% IN WATER 1,000 ML IV ONE (10:59)
[2023-12-25 11:13] LABS: Amphetamine Screen,Urine Not Detected (NotDetected); Barbiturate Screen,Urine Not Detected (NotDetected); Benzodiazepines Screen,Urine Not Detected (NotDetected); Cocaine Screen,Urine Not Detected (NotDetected); Methadone Screen, Urine Not Detected (NotDetected); Opiate Screen,Urine Not Detected (NotDetected); Oxycodone Screen, Urine Not Detected (NotDetected); Phencyclidine Screen,Urine Not Detected (NotDetected); Tricyclic Antidepressant,Urine Not Detected (NotDetected); Urn Cannabinoid Scrn Not Detected (NotDetected)
[2023-12-25 11:14] LABS: Appearance,Urine Clear (Clear); Bilirubin,Urine Negative (Negative); Blood,Urine Small (Negative); Color,Urine Colorless; Glucose,Urine (UA) 3+ (Negative); Hyaline Casts,Urine 1 /lpf (0-2); Ketones,Urine Negative (Negative); Leukocyte Esterase,Urine Negative (Negative); Mucus,Urine Rare /hpf; Nitrite,Urine Negative (Negative); Protein,Urine Negative (Negative); RBC,Urine 5 /hpf (0-5); Specific Gravity,Urine 1.006 (1.001-1.035); Urobilinogen,Urine <2.0 mg/dL (<2.0); WBC,Urine 1 /hpf (0-5)
[2023-12-25 11:15] LABS: Glucose,Whole Blood 146 mg/dL (70-110)
--- NOTE | 2023-12-25 11:28 | CT ---
EXAMINATION TYPE: CT brain wo con DATE OF EXAM: 12/25/2023 COMPARISON: 04/10/2023 HISTORY: 23-year-old male confusion, altered mental status, fall, hypoglycemic TECHNIQUE: Examination was done in axial plane without intravenous contrast. Coronal and sagittal r econstructions performed. CT DLP: 1125.4 mGycm Automated exposure control for dose reduction was used. FINDINGS: There is no evidence of acute intracranial hemorrhage, acute ischemic changes, mass, mass-effect, or extra-axial fluid collection. There is no effacement of cerebral sulci or basal subarachnoid cister ns. There is persistent moderate hydrocephalus, Scanlon ratio calculated 0.40. There is no midline shift. Ponce-white matter distinction is preserved. Frothy partial opacification right sphenoid sinus. Orbits and globes are intact. Mastoid air cells ar e well pneumatized. IMPRESSION: 1. Ongoing, chronic-appearing moderate hydrocephalus. Correlate for any known etiology such previous diagnosis. Otherwise, no acute intracranial abnormality seen. 2. Frothy partial opacification right sphenoid sinus may be seen with an acute sinusitis.
[2023-12-25 11:35] LABS: Glucose,Whole Blood 122 mg/dL (70-110)
--- NOTE | 2023-12-25 11:49 | ED ---
General Adult HPI - General Chief complaint: Recheck/Abnormal Lab/Rx Stated complaint: hypoglycemic Time Seen by Provider: 12/25/23 10:20 Source: EMS Mode of arrival: EMS - History of Present Illness Initial comments: 23-year-old male with past medical history of type 1 diabetes who presents emergency department with altered mental status. I do obtain history from the EMS as well as from the patient's girlfriend's mom who he lives with. EMS state that they found the patient outside of her residence acting altered. He was running around. They performed an Accu-Chek as the patient is a type I diabetic and found that he had an extremely low glucose of 30 on scene. They did provide him with an amp of dextrose after they obtained an IV. Patient had improvement of his sugar up to 300. Upon arrival to the hospital here we repeated an Accu- Chek and it was 28. Patient given a second amp of dextrose. I spoke with the patient's girlfriend's mother who he resides with. She states that he got home around 2 AM and was acting normally. He did mention that he ate a bunch of food at work and therefore was giving himself insulin without knowing his glucose level as he was out of test strips. This morning she awoke and found that the patient was not awake yet. She states he is normally up at 7 AM. He came into the kitchen and was acting odd. He ended up slipping and falling and hitting his head. She states that he then had an episode of incontinence and she put him outside in the yard because of the mess he was making. They then called EMS who found him to have a very low Accu-Chek. Patient did this previously in September where he intentionally took too much insulin. She denies that there was any altercation at the house so she is unsure if he intentionally did this After the patient did receive stabilization of his blood sugar he does admit that he took too much insulin in an attempt to harm himself - Related Data Home Medications Medication Instructions Recorded Confirmed Glucagon [Gvoke Pfs 1-Pack Syringe] 1 mg SQ DIRECTED PRN 10/04/23 12/28/23 Insulin Aspart (For Pump) [NovoLOG 0.01 unit SQ-PUMP DIRECTED 10/04/23 12/28/23 (For Pump)] Insulin Aspart [NovoLOG Flexpen] See Protocol SQ ACHS PRN 10/04/23 12/28/23 Previous Rx's Medication Instructions Recorded Insulin Detemir (Levemir) [Levemir] 5 unit SQ BID@0700,2100 #0 each 12/28/23 Allergies Allergy/AdvReac Type Severity Reaction Status Date / Time amphetamine aspartate AdvReac very Verified 12/25/23 11:08 [From Adderall] violent amphetamine sulfate AdvReac very Verified 12/25/23 11:08 [From Adderall] violent dextroamphetamine saccharate AdvReac very Verified 12/25/23 11:08 [From Adderall] violent dextroamphetamine sulfate AdvReac very Verified 12/25/23 11:08 [From Adderall] violent Review of Systems ROS Statement: Those systems with pertinent positive or pertinent negative responses have been documented in the HPI. ROS Other: All systems not noted in ROS Statement are negative. Past Medical History Past Medical History: Diabetes Mellitus Additional Past Medical History / Comment(s): hydro cephalous History of Any Multi-Drug Resistant Organisms: None Reported Past Surgical History: No Surgical Hx Reported Past Anesthesia/Blood Transfusion Reactions: No Reported Reaction Past Psychological History: ADD/ADHD Smoking Status: Current every day smoker Past Alcohol Use History: None Reported Past Drug Use History: Marijuana General Exam Limitations: altered mental status General appearance: other (Spastic, agitated) Eye exam: Present: normal appearance, PERRL, EOMI. Absent: scleral icterus, conjunctival injection, periorbital swelling ENT exam: Present: normal exam, mucous membranes moist Respiratory exam: Present: normal lung sounds bilaterally. Absent: respiratory distress, wheezes, rales, rhonchi, stridor Cardiovascular Exam: Present: regular rate, normal rhythm, normal heart sounds. Absent: systolic murmur, diastolic murmur, rubs, gallop, clicks Neurological exam: Present: altered Psychiatric exam: Present: agitated Course Vital Signs 12/25/23 12/25/23 12/25/23 10:14 10:36 11:40 Temperature Pulse Rate 74 89 63 Respiratory 20 20 16 Rate Blood Pressure 131/84 125/89 101/77 O2 Sat by Pulse 98 96 Oximetry 12/25/23 12/25/23 12/25/23 12:01 13:00 13:31 Temperature 97.5 F L Pulse Rate 79 62 64 Respiratory 20 16 16 Rate Blood Pressure 125/89 107/68 105/58 O2 Sat by Pulse 95 95 95 Oximetry Medical Decision Making - Medical Decision Making Was pt. sent in by a medical professional or institution ([facility] [place], [facility], urgent care, hospital, or prison...) When possible be specific @ -No Did you speak to anyone other than the patient for history (EMS, parent, family, police, friend...)? What history was obtained from this source @ -Spoke with EMS and the patient's girlfriend's mother for history Did you review nursing and triage notes (agree or disagree)? Why? @ -I reviewed and agree with nursing and triage notes Were old charts reviewed (outside hosp., previous admission, EMS record, old EK G, old radiological studies, urgent care reports/EKG's, prison records)? Report findings @ -I reviewed hospital discharge summary from November 2023 where patient was admitted for intentional insulin overdose Differential Diagnosis (chest pain, altered mental status, abdominal pain women, abdominal pain men, vaginal bleeding, weakness, fever, dyspnea, syncope, headache, dizziness, GI bleed, back pain, seizure, CVA, palpatations, mental health, musculoskeletal)? @ -Differential Altered Mental Status: Hypoglycemia, DKA, hypercapnia, ETOH, overdose, CO poisoning, trauma, myxedema coma, HTN encephalopathy, infection, encephalitis, psychosis, intercranial hemorrhage, hepatic encephalopathy, meningitis, CVA, this is not meant to be an all-inclusive list EKG interpreted by me (3pts min.). @ -Yes and demonstrates sinus rhythm with sinus arrhythmia. Rate of 82. Parable 142. QRS 106. QTc of 382. No acute ST segment elevations or depressions X-rays interpreted by me (1pt min.). @ -None done CT interpreted by me (1pt min.). @ -Yes and demonstrates chronic hydrocephalus U/S interpreted by me (1pt. min.). @ -None done What testing was considered but not performed or refused? (CT, X-rays, U/S, labs)? Why? @ -None What meds were considered but not given or refused? Why? @ -None Did you discuss the management of the patient with other professionals (professionals i.e. , [facility], [facility], lab, RT, psych nurse, social media executive, evaluation specialist, teacher, trust officer, skilled nursing case manager)? Give summary @Spoke with Dr. Canseco for admission Was smoking cessation discussed for >3mins.? @ -No Was critical care preformed (if so, how long)? @ -Yes, 40 minutes for management of D10 drip Were there social determinants of health that impacted care today? How? (Homelessness, low income, unemployed, alcoholism, drug addiction, transportation, low edu. Level, literacy, decrease access to med. care, assisted, rehab)? @ -No Was there de-escalation of care discussed even if they declined (Discuss DNR or withdrawal of care, Hospice)? DNR status @ -No What co-morbidities impacted this encounter? (DM, HTN, Smoking, COPD, CAD, Cancer, CVA, ARF, Chemo, Hep., AIDS, mental health diagnosis, sleep apnea, morbi d obesity)? @ -Type 1 diabetes Was patient admitted / discharged? Hospital course, mention meds given and route, prescriptions, significant lab abnormalities, going to OR and other pertinent info. @ -Upon arrival patient seen and evaluated in room 5. Thorough history and physical exam was performed. I did talk to patient's family about the patient. IV was established. Laboratory studies are conducted. Patient placed on a D5 drip which is transition to a D10 drip. CT of the brain was performed. Patient does have some improvement in his mentation for which she does admit to me that he took too much insulin on purpose. He states he is fighting with family. At this time patient will be admitted on a D10 drip to the ICU. I spoke with Dr. Herring for the admission. Also spoke with Dr. Bello. Psychiatry will be placed on consult. Undiagnosed new problem with uncertain prognosis? @ -No Drug Therapy requiring intensive monitoring for toxicity (Heparin, Nitro, Insulin, Cardizem)? @ -No Were any procedures done? @ -No Diagnosis/symptom? @ -Acute recurrent hypoglycemia, acute encephalopathy, type 1 diabetes, possible intentional medication overdose Acute, or Chronic, or Acute on Chronic? @ -Acute Uncomplicated (without systemic symptoms) or Complicated (systemic symptoms)? @ -Complicated Side effects of treatment? @ -No Exacerbation, Progression, or Severe Exacerbation? @ -No Poses a threat to life or bodily function? How? (Chest pain, [place], [place], pneumonia, PE, COPD, DKA, ARF, appy, cholecystitis, CVA, Diverticulitis, Homicidal, Suicidal, threat to staff... and all critical care pts) @ -Yes as patient is markedly hypoglycemic - Lab Data Result diagrams: 12/28/23 04:56 12/28/23 04:56 Lab Results 12/25/23 12/25/23 12/25/23 Range/Units 10:14 10:28 10:32 WBC 10.9 H (3.8-10.6) k/uL RBC 4.61 (4.30-5.90) m/uL Hgb 13.7 (13.0-17.5) gm/dL Hct 41.7 (39.0-53.0) % MCV 90.3 (80.0-100.0) fL MCH 29.7 (25.0-35.0) pg MCHC 32.9 (31.0-37.0) g/dL RDW 12.9 (11.5-15.5) % Plt Count 373 (150-450) k/uL MPV 7.7 Neutrophils % 79 % Lymphocytes % 12 % Monocytes % 6 % Eosinophils % 1 % Basophils % 0 % Neutrophils # 8.6 H (1.3-7.7) k/uL Lymphocytes # 1.3 (1.0-4.8) k/uL Monocytes # 0.6 (0-1.0) k/uL Eosinophils # 0.1 (0-0.7) k/uL Basophils # 0.0 (0-0.2) k/uL Sodium (137-145) mmol/L Potassium (3.5-5.1) mmol/L Chloride (98-107) mmol/L Carbon Dioxide (22-30) mmol/L Anion Gap mmol/L BUN (9-20) mg/dL Creatinine (0.66-1.25) mg/dL Est GFR (CKD-EPI)AfAm (>60 ml/min/1.73 sqM) Est GFR (CKD-EPI)NonAf (>60 ml/min/1.73 sqM) Glucose (74-99) mg/dL POC Glucose (mg/dL) 28 L* 177 H (70-110) mg/dL POC Glu Machine Molder Usama Velásquez Gillian Calcium (8.4-10.2) mg/dL Total Bilirubin (0.2-1.3) mg/dL AST (17-59) U/L ALT (4-49) U/L Alkaline Phosphatase (38-126) U/L Total Protein (6.3-8.2) g/dL Albumin (3.5-5.0) g/dL Urine Color Urine Appearance (Clear) Urine pH (5.0-8.0) Ur Specific [place] (1.001-1.035) Urine Protein (Negative) Urine Glucose (UA) (Negative) Urine Ketones (Negative) Urine Blood (Negative) Urine Nitrite (Negative) Urine Bilirubin (Negative) Urine Urobilinogen (<2.0) mg/dL Ur Leukocyte Esterase (Negative) Urine RBC (0-5) /hpf Urine WBC (0-5) /hpf Hyaline Casts (0-2) /lpf Urine Mucus (None) /hpf Urine Opiates Screen (NotDetected) Ur Oxycodone Screen (NotDetected) Urine Methadone Screen (NotDetected) Ur Barbiturates Screen (NotDetected) U Tricyclic Antidepress (NotDetected) Ur Phencyclidine Scrn (NotDetected) Ur Amphetamines Screen (NotDetected) U Methamphetamines Scrn (NotDetected) U Benzodiazepines Scrn (NotDetected) Urine Cocaine Screen (NotDetected) U Marijuana (THC) Screen (NotDetected) Serum Alcohol mg/dL 12/25/23 12/25/23 12/25/23 Range/Units 10:32 10:32 10:32 WBC (3.8-10.6) k/uL RBC (4.30-5.90) m/uL Hgb (13.0-17.5) gm/dL Hct (39.0-53.0) % MCV (80.0-100.0) fL MCH (25.0-35.0) pg MCHC (31.0-37.0) g/dL RDW (11.5-15.5) % Plt Count (150-450) k/uL MPV Neutrophils % % Lymphocytes % % Monocytes % % Eosinophils % % Basophils % % Neutrophils # (1.3-7.7) k/uL Lymphocytes # (1.0-4.8) k/uL Monocytes # (0-1.0) k/uL Eosinophils # (0-0.7) k/uL Basophils # (0-0.2) k/uL Sodium 134 L (137-145) mmol/L Potassium 3.4 L (3.5-5.1) mmol/L Chloride 104 (98-107) mmol/L Carbon Dioxide 21 L (22-30) mmol/L Anion Gap 9 mmol/L BUN 7 L (9-20) mg/dL Creatinine 0.56 L (0.66-1.25) mg/dL Est GFR (CKD-EPI)AfAm >90 (>60 ml/min/1.73 sqM) Est GFR (CKD-EPI)NonAf >90 (>60 ml/min/1.73 sqM) Glucose 132 H (74-99) mg/dL POC Glucose (mg/dL) (70-110) mg/dL POC Glu Machine Molder ID Calcium 9.3 (8.4-10.2) mg/dL Total Bilirubin 0.6 (0.2-1.3) mg/dL AST 24 (17-59) U/L ALT 13 (4-49) U/L Alkaline Phosphatase 63 (38-126) U/L Total Protein 6.4 (6.3-8.2) g/dL Albumin 4.0 (3.5-5.0) g/dL Urine Color Colorless Urine Appearance Clear (Clear) Urine pH 7.0 (5.0-8.0) Ur Specific [place] 1.006 (1.001-1.035) Urine Protein Negative (Negative) Urine Glucose (UA) 3+ H (Negative) Urine Ketones Negative (Negative) Urine Blood Small H (Negative) Urine Nitrite Negative (Negative) Urine Bilirubin Negative (Negative) Urine Urobilinogen <2.0 (<2.0) mg/dL Ur Leukocyte Esterase Negative (Negative) Urine RBC 5 (0-5) /hpf Urine WBC 1 (0-5) /hpf Hyaline Casts 1 (0-2) /lpf Urine Mucus Rare H (None) /hpf Urine Opiates Screen Not Detected (NotDetected) Ur Oxycodone Screen Not Detected (NotDetected) Urine Methadone Screen Not Detected (NotDetected) Ur Barbiturates Screen Not Detected (NotDetected) U Tricyclic Antidepress Not Detected (NotDetected) Ur Phencyclidine Scrn Not Detected (NotDetected) Ur Amphetamines Screen Not Detected (NotDetected) U Methamphetamines Scrn Not Detected (NotDetected) U Benzodiazepines Scrn Not Detected (NotDetected) Urine Cocaine Screen Not Detected (NotDetected) U Marijuana (THC) Screen Not Detected (NotDetected) Serum Alcohol <10 mg/dL 12/25/23 12/25/23 12/25/23 Range/Units 10:34 10:41 10:43 WBC (3.8-10.6) k/uL RBC (4.30-5.90) m/uL Hgb (13.0-17.5) gm/dL Hct (39.0-53.0) % MCV (80.0-100.0) fL MCH (25.0-35.0) pg MCHC (31.0-37.0) g/dL RDW (11.5-15.5) % Plt Count (150-450) k/uL MPV Neutrophils % % Lymphocytes % % Monocytes % % Eosinophils % % Basophils % % Neutrophils # (1.3-7.7) k/uL Lymphocytes # (1.0-4.8) k/uL Monocytes # (0-1.0) k/uL Eosinophils # (0-0.7) k/uL Basophils # (0-0.2) k/uL Sodium (137-145) mmol/L Potassium (3.5-5.1) mmol/L Chloride (98-107) mmol/L Carbon Dioxide (22-30) mmol/L Anion Gap mmol/L BUN (9-20) mg/dL Creatinine (0.66-1.25) mg/dL Est GFR (CKD-EPI)AfAm (>60 ml/min/1.73 sqM) Est GFR (CKD-EPI)NonAf (>60 ml/min/1.73 sqM) Glucose (74-99) mg/dL POC Glucose (mg/dL) 126 H 243 H 93 (70-110) mg/dL POC Glu Machine Molder ID Gaby Quinones, Usama Talbot, Usama Calcium (8.4-10.2) mg/dL Total Bilirubin (0.2-1.3) mg/dL AST (17-59) U/L ALT (4-49) U/L Alkaline Phosphatase (38-126) U/L Total Protein (6.3-8.2) g/dL Albumin (3.5-5.0) g/dL Urine Color Urine Appearance (Clear) Urine pH (5.0-8.0) Ur Specific [place] (1.001-1.035) Urine Protein (Negative) Urine Glucose (UA) (Negative) Urine Ketones (Negative) Urine Blood (Negative) Urine Nitrite (Negative) Urine Bilirubin (Negative) Urine Urobilinogen (<2.0) mg/dL Ur Leukocyte Esterase (Negative) Urine RBC (0-5) /hpf Urine WBC (0-5) /hpf Hyaline Casts (0-2) /lpf Urine Mucus (None) /hpf Urine Opiates Screen (NotDetected) Ur Oxycodone Screen (NotDetected) Urine Methadone Screen (NotDetected) Ur Barbiturates Screen (NotDetected) U Tricyclic Antidepress (NotDetected) Ur Phencyclidine Scrn (NotDetected) Ur Amphetamines Screen (NotDetected) U Methamphetamines Scrn (NotDetected) U Benzodiazepines Scrn (NotDetected) Urine Cocaine Screen (NotDetected) U Marijuana (THC) Screen (NotDetected) Serum Alcohol mg/dL 12/25/23 12/25/23 12/25/23 Range/Units 10:44 10:55 11:13 WBC (3.8-10.6) k/uL RBC (4.30-5.90) m/uL Hgb (13.0-17.5) gm/dL Hct (39.0-53.0) % MCV (80.0-100.0) fL MCH (25.0-35.0) pg MCHC (31.0-37.0) g/dL RDW (11.5-15.5) % Plt Count (150-450) k/uL MPV Neutrophils % % Lymphocytes % % Monocytes % % Eosinophils % % Basophils % % Neutrophils # (1.3-7.7) k/uL Lymphocytes # (1.0-4.8) k/uL Monocytes # (0-1.0) k/uL Eosinophils # (0-0.7) k/uL Basophils # (0-0.2) k/uL Sodium (137-145) mmol/L Potassium (3.5-5.1) mmol/L Chloride (98-107) mmol/L Carbon Dioxide (22-30) mmol/L Anion Gap mmol/L BUN (9-20) mg/dL Creatinine (0.66-1.25) mg/dL Est GFR (CKD-EPI)AfAm (>60 ml/min/1.73 sqM) Est GFR (CKD-EPI)NonAf (>60 ml/min/1.73 sqM) Glucose (74-99) mg/dL POC Glucose (mg/dL) 89 237 H 146 H (70-110) mg/dL POC Glu Machine Molder ID TalbotUsama, Melinda Guadarrama, Melinda Calcium (8.4-10.2) mg/dL Total Bilirubin (0.2-1.3) mg/dL AST (17-59) U/L ALT (4-49) U/L Alkaline Phosphatase (38-126) U/L Total Protein (6.3-8.2) g/dL Albumin (3.5-5.0) g/dL Urine Color Urine Appearance (Clear) Urine pH (5.0-8.0) Ur Specific [place] (1.001-1.035) Urine Protein (Negative) Urine Glucose (UA) (Negative) Urine Ketones (Negative) Urine Blood (Negative) Urine Nitrite (Negative) Urine Bilirubin (Negative) Urine Urobilinogen (<2.0) mg/dL Ur Leukocyte Esterase (Negative) Urine RBC (0-5) /hpf Urine WBC (0-5) /hpf Hyaline Casts (0-2) /lpf Urine Mucus (None) /hpf Urine Opiates Screen (NotDetected) Ur Oxycodone Screen (NotDetected) Urine Methadone Screen (NotDetected) Ur Barbiturates Screen (NotDetected) U Tricyclic Antidepress (NotDetected) Ur Phencyclidine Scrn (NotDetected) Ur Amphetamines Screen (NotDetected) U Methamphetamines Scrn (NotDetected) U Benzodiazepines Scrn (NotDetected) Urine Cocaine Screen (NotDetected) U Marijuana (THC) Screen (NotDetected) Serum Alcohol mg/dL 12/25/23 12/25/23 Range/Units 11:33 11:56 WBC (3.8-10.6) k/uL RBC (4.30-5.90) m/uL Hgb (13.0-17.5) gm/dL Hct (39.0-53.0) % MCV (80.0-100.0) fL MCH (25.0-35.0) pg MCHC (31.0-37.0) g/dL RDW (11.5-15.5) % Plt Count (150-450) k/uL MPV Neutrophils % % Lymphocytes % % Monocytes % % Eosinophils % % Basophils % % Neutrophils # (1.3-7.7) k/uL Lymphocytes # (1.0-4.8) k/uL Monocytes # (0-1.0) k/uL Eosinophils # (0-0.7) k/uL Basophils # (0-0.2) k/uL Sodium (137-145) mmol/L Potassium (3.5-5.1) mmol/L Chloride (98-107) mmol/L Carbon Dioxide (22-30) mmol/L Anion Gap mmol/L BUN (9-20) mg/dL Creatinine (0.66-1.25) mg/dL Est GFR (CKD-EPI)AfAm (>60 ml/min/1.73 sqM) Est GFR (CKD-EPI)NonAf (>60 ml/min/1.73 sqM) Glucose (74-99) mg/dL POC Glucose (mg/dL) 122 H 93 (70-110) mg/dL POC Glu Machine Molder Melinda Stauffer Kellyann Calcium (8.4-10.2) mg/dL Total Bilirubin (0.2-1.3) mg/dL AST (17-59) U/L ALT (4-49) U/L Alkaline Phosphatase (38-126) U/L Total Protein (6.3-8.2) g/dL Albumin (3.5-5.0) g/dL Urine Color Urine Appearance (Clear) Urine pH (5.0-8.0) Ur Specific [place] (1.001-1.035) Urine Protein (Negative) Urine Glucose (UA) (Negative) Urine Ketones (Negative) Urine Blood (Negative) Urine Nitrite (Negative) Urine Bilirubin (Negative) Urine Urobilinogen (<2.0) mg/dL Ur Leukocyte Esterase (Negative) Urine RBC (0-5) /hpf Urine WBC (0-5) /hpf Hyaline Casts (0-2) /lpf Urine Mucus (None) /hpf Urine Opiates Screen (NotDetected) Ur Oxycodone Screen (NotDetected) Urine Methadone Screen (NotDetected) Ur Barbiturates Screen (NotDetected) U Tricyclic Antidepress (NotDetected) Ur Phencyclidine Scrn (NotDetected) Ur Amphetamines Screen (NotDetected) U Methamphetamines Scrn (NotDetected) U Benzodiazepines Scrn (NotDetected) Urine Cocaine Screen (NotDetected) U Marijuana (THC) Screen (NotDetected) Serum Alcohol mg/dL Disposition Clinical Impression: Altered mental status, Delirium due to general medical condition, Hypoglycemia, Suicidal ideation Disposition: ADMITTED IP TO THIS [facility] Condition: Good Is patient prescribed a controlled substance at d/c from ED?: No Time of Disposition: 12:29 Decision to Admit Reason: Admit from EC Decision Date: 12/25/23 Decision Time: 12:29
[2023-12-25 11:58] LABS: Glucose,Whole Blood 93 mg/dL (70-110)
[2023-12-25] MEDS ORDERED: NALOXONE 0.4 MG/ML 1 ML VIAL IV PRN (12:56)
--- NOTE | 2023-12-25 13:05 | P.CNPUL ---
History of Present Illness Consult date: 12/25/23 Requesting physician: Myesha Garcia Reason for consult: other Chief complaint: Suicide attempt, hypoglycemia. History of present illness: Pulmonary consult dated December 25, 2023. 23-year-old male with history of diabetes, who presents to the emergency department, with altered mental status. The patient apparently was found by EMS, with a very low glucose, that was less than 30. The patient did receive an amp of D50 50, and an IV was obtained by EMS. The sugar increased up to 300. And upon arrival to the hospital, the patient's blood sugar was 28. The patient was placed on a D10 drip, at 75 cc an hour. He is not receiving any supplemental oxygen. The patient apparently had been managing his diabetes, without test strips. The patient has a previous history of in a suicide attempt , by injecting himself with insulin. According to Dr. Garcia, the ER physician, she got additional history, to suggest that the patient apparently hates his family, was attempting suicide again. The patient apparently uses Lantus insulin, and NovoLog FlexPen, and NovoLog for his insulin pump. His only major medical problems are diabetes, and hydrocephalus. He apparently also has a history of ADD/ADHD, and does use tobacco and marijuana on a regular basis. White count is 10.9, hemoglobin 13.7, hematocrit 41.7, platelet count normal. Sodium 134, potassium 3.4, chlorides 104, CO2 21, BUN 7, creatinine 0.56. His most recent blood sugar is 93. Urine shows 3+ glucose, small amount of blood, and rare mucus. Drug screen was negative. Brain CT showed chronic appearing moderate hydrocephalus. EKG showed sinus rhythm, with a rate of 80 bpm. Review of Systems REVIEW OF SYSTEMS: CONSTITUTIONAL: [Negative.] NEUROLOGIC: Mental status changes, secondary to hypoglycemia. HEENT: [ Negative.] CARDIAC: [Negative.] PULMONARY: [Negative.] GI: [Negative.] : [Negative.] RHEUMATOLOGIC: [ Negative.] IMMUNOLOGIC: [ Negative.] ENDOCRINE: [Negative. ] DERMATOLOGIC: [Negative.] Past Medical History Past Medical History: Diabetes Mellitus Additional Past Medical History / Comment(s): hydro cephalous History of Any Multi-Drug Resistant Organisms: None Reported Past Surgical History: No Surgical Hx Reported Past Anesthesia/Blood Transfusion Reactions: No Reported Reaction Past Psychological History: ADD/ADHD Smoking Status: Current every day smoker Past Alcohol Use History: None Reported Past Drug Use History: Marijuana Medications and Allergies Home Medications Medication Instructions Recorded Confirmed Type Glucagon [Gvoke Pfs 1-Pack Syringe] 1 mg SQ DIRECTED PRN 10/04/23 12/25/23 History Insulin Aspart (For Pump) [NovoLOG 0.01 unit SQ-PUMP DIRECTED 10/04/23 12/25/23 History (For Pump)] Insulin Aspart [NovoLOG Flexpen] See Protocol SQ ACHS PRN 10/04/23 12/25/23 History Insulin Glargine,Hum.rec.anlog 20 units SQ DAILY 10/04/23 12/25/23 History [Lantus Solostar Pen] Allergies Allergy/AdvReac Type Severity Reaction Status Date / Time amphetamine aspartate AdvReac very Verified 12/25/23 11:08 [From Adderall] violent amphetamine sulfate AdvReac very Verified 12/25/23 11:08 [From Adderall] violent dextroamphetamine saccharate AdvReac very Verified 12/25/23 11:08 [From Adderall] violent dextroamphetamine sulfate AdvReac very Verified 12/25/23 11:08 [From Adderall] violent Physical Exam Osteopathic Statement: *. No significant issues noted on an osteopathic structural exam other than those noted in the History and Physical/Consult. Vitals: Vital Signs Pulse Resp BP Pulse Ox 12/25/23 12:01 79 20 125/89 95 12/25/23 11:40 63 16 101/77 12/25/23 10:36 89 20 125/89 96 12/25/23 10:14 74 20 131/84 98 Intake and Output 12/24/23 12/25/23 12/25/23 22:59 06:59 14:59 Other: Weight 63.503 kg No acute distress, lethargic, does arouse, garbled speech. HEENT examination is grossly unremarkable. Mucous membranes are moist. No oral lesions. Neck supple. Full range of motion. No adenopathy thyromegaly or neck vein distention. Cardiovascular examination reveals regular rhythm rate. S1-S2 normal. No S3 or S4. No discernible murmur noted. Heart rate 79 bpm. Lungs reveal clear breath sounds. Breath sounds are equal bilaterally. No adventitious lung sounds including wheezes rhonchi or crackles. Saturations are 95% on room air. Abdomen soft bowel sounds are heard. No masses or tenderness. Extremities are intact. No cyanosis clubbing or edema. Skin is without rash or lesion. Neurologic examination is brief but nonfocal. Results - Laboratory Findings CBC and BMP: 12/25/23 10:32 12/25/23 10:32 Abnormal lab findings: Abnormal Labs 12/25/23 12/25/23 12/25/23 10:14 10:28 10:32 WBC 10.9 H Neutrophils # 8.6 H Sodium Potassium Carbon Dioxide BUN Creatinine Glucose POC Glucose (mg/dL) 28 L* 177 H Urine Glucose (UA) Urine Blood Urine Mucus 12/25/23 12/25/23 12/25/23 10:32 10:32 10:34 WBC Neutrophils # Sodium 134 L Potassium 3.4 L Carbon Dioxide 21 L BUN 7 L Creatinine 0.56 L Glucose 132 H POC Glucose (mg/dL) 126 H Urine Glucose (UA) 3+ H Urine Blood Small H Urine Mucus Rare H 12/25/23 12/25/23 12/25/23 10:41 10:55 11:13 WBC Neutrophils # Sodium Potassium Carbon Dioxide BUN Creatinine Glucose POC Glucose (mg/dL) 243 H 237 H 146 H Urine Glucose (UA) Urine Blood Urine Mucus 12/25/23 11:33 WBC Neutrophils # Sodium Potassium Carbon Dioxide BUN Creatinine Glucose POC Glucose (mg/dL) 122 H Urine Glucose (UA) Urine Blood Urine Mucus Assessment and Plan Assessment: Acute hypoglycemia, which may relate to a suicide attempt. History of type 1 diabetes. Previous history of suicide attempt, by injecting himself with insulin, and inducing hypoglycemia, September,. History of hydrocephalus. History of major depression, with psychotic features. History of ADD/ADHD. History of tobacco use. History of marijuana use. Plan: Plan dated December 25, 2023. The patient is seen in the emergency department, room [address]. [address] Garcia, this may be another suicide attempt. He attempted this recently, in September of this year. The patient's blood glucose initially was quite low. He received dextrose, and his blood sugars dm up, but more recently, his blood sugars have dropped down again. He is currently on a D10 drip, at 75 cc an hour. We should attempt to switch him to a D5W drip, in which case, the patient can be discharged to the general medical floor. Should he need the D10 drip, he may need to be admitted to the intensive care unit. Additional recommendations and suggestions are forthcoming. Psychiatry should see him again. Will continue to follow. Time with Patient: Greater than 30
[2023-12-25 13:19] LABS: Glucose,Whole Blood 93 mg/dL (70-110)
--- NOTE | 2023-12-25 13:45 | P.HPIM ---
History of Present Illness H&P Date: 12/25/23 History of present illness; patient is a 23-year-old gentleman past medical history significant for diabetes mellitus on insulin pump who came to the ER for altered mental status. Most of the history has been obtained from EMR, patient is currently living with her girlfriends mother. According to the patient's girlfriend mother she found patient acting weird this morning. Patient worked last night and came back to in the morning and slept normally. When patient woke up he was acting not usual self. Patient slippd in the kitchen and hit his head, EMS was called and they found the patient to have low blood sugars of less than 30, patient received an amp of D50 on the spot and was brought to the ER. Initial lab work done in the ER showed WBC 10.9, hemoglobin 13.7, platelet count 373, sodium 134, potassium 3.4, anion gap 9, BUN 7, creatinine 0.56, initial blood glucose was 28 Urine drug screen was negative UA was negative for urine nitrites and leukocyte esterase. EKG done in the ER showed heart rate of , no ST segment elevation or depression seen, no T-wave inversions seen. CT head done showed no acute intracranial process, showed chronic ongoing appearing moderate hydrocephalus Because of persistent hypoglycemia, patient started on D10W infusion Patient admitted to internal medicine service REVIEW OF SYSTEMS: Cannot be obtained as patient is altered PHYSICAL EXAMINATION: GENERAL: The patient is altered and agitated HEENT: Pupils are round and equally reacting to light. EOMI. No scleral icterus. No conjunctival pallor. Normocephalic, atraumatic. No pharyngeal erythema. No thyromegaly. CARDIOVASCULAR: S1 and S2 present. No murmurs, rubs, or gallops. PULMONARY: Chest is clear to auscultation, no wheezing or crackles. ABDOMEN: Soft, nontender, nondistended, normoactive bowel sounds. No palpable organomegaly. MUSCULOSKELETAL: No joint swelling or deformity. EXTREMITIES: No cyanosis, clubbing, or pedal edema. NEUROLOGICAL: Moving all extremities SKIN: No rashes. Assessment and plan Acute metabolic encephalopathy Hypoglycemia Hyponatremia Hypokalemia Possible suicidal attempt Chronic hydrocephalus Insulin-dependent diabetes mellitus History of ADD/ADHD. History of tobacco use. History of marijuana use. Monitor vital signs Monitor CBC Monitor CMP Continue telemetry monitoring Serial blood glucose monitoring Continue D10W infusion Elopement precaution Seizure precautions Hold off on long-acting insulin Psych consulted Critical care consulted Labs and medication were reviewed.. Continue same treatment. Continue with symptomatic treatment. Resume home medication. Monitor labs and vitals. DVT and GI prophylaxis. Further recommendations as per clinical course of the patient Dictation was produced using [employer] dictation software. please excuse any grammatical, word or spelling errors. Past Medical History Past Medical History: Diabetes Mellitus Additional Past Medical History / Comment(s): hydro cephalous History of Any Multi-Drug Resistant Organisms: None Reported Past Surgical History: No Surgical Hx Reported Past Anesthesia/Blood Transfusion Reactions: No Reported Reaction Past Psychological History: ADD/ADHD Smoking Status: Current every day smoker Past Alcohol Use History: None Reported Past Drug Use History: Marijuana Medications and Allergies Home Medications Medication Instructions Recorded Confirmed Type Glucagon [Gvoke Pfs 1-Pack Syringe] 1 mg SQ DIRECTED PRN 10/04/23 12/25/23 History Insulin Aspart (For Pump) [NovoLOG 0.01 unit SQ-PUMP DIRECTED 10/04/23 12/25/23 History (For Pump)] Insulin Aspart [NovoLOG Flexpen] See Protocol SQ ACHS PRN 10/04/23 12/25/23 History Insulin Glargine,Hum.rec.anlog 20 units SQ DAILY 10/04/23 12/25/23 History [Lantus Solostar Pen] Allergies Allergy/AdvReac Type Severity Reaction Status Date / Time amphetamine aspartate AdvReac very Verified 12/25/23 11:08 [From Adderall] violent amphetamine sulfate AdvReac very Verified 12/25/23 11:08 [From Adderall] violent dextroamphetamine saccharate AdvReac very Verified 12/25/23 11:08 [From Adderall] violent dextroamphetamine sulfate AdvReac very Verified 12/25/23 11:08 [From Adderall] violent Physical Exam Vitals: Vital Signs Temp Pulse Resp BP Pulse Ox 12/25/23 13:31 97.5 F L 64 16 105/58 95 12/25/23 13:00 62 16 107/68 95 12/25/23 12:01 79 20 125/89 95 12/25/23 11:40 63 16 101/77 12/25/23 10:36 89 20 125/89 96 12/25/23 10:14 74 20 131/84 98 Intake and Output 12/24/23 12/25/23 12/25/23 22:59 06:59 14:59 Other: Weight 63.503 kg Results CBC & Chem 7: 12/25/23 10:32 12/25/23 10:32 Labs: Abnormal Lab Results - Last 24 Hours (Table) 12/25/23 12/25/23 12/25/23 Range/Units 10:14 10:28 10:32 WBC 10.9 H (3.8-10.6) k/uL Neutrophils # 8.6 H (1.3-7.7) k/uL Sodium (137-145) mmol/L Potassium (3.5-5.1) mmol/L Carbon Dioxide (22-30) mmol/L BUN (9-20) mg/dL Creatinine (0.66-1.25) mg/dL Glucose (74-99) mg/dL POC Glucose (mg/dL) 28 L* 177 H (70-110) mg/dL Urine Glucose (UA) (Negative) Urine Blood (Negative) Urine Mucus (None) /hpf 12/25/23 12/25/23 12/25/23 Range/Units 10:32 10:32 10:34 WBC (3.8-10.6) k/uL Neutrophils # (1.3-7.7) k/uL Sodium 134 L (137-145) mmol/L Potassium 3.4 L (3.5-5.1) mmol/L Carbon Dioxide 21 L (22-30) mmol/L BUN 7 L (9-20) mg/dL Creatinine 0.56 L (0.66-1.25) mg/dL Glucose 132 H (74-99) mg/dL POC Glucose (mg/dL) 126 H (70-110) mg/dL Urine Glucose (UA) 3+ H (Negative) Urine Blood Small H (Negative) Urine Mucus Rare H (None) /hpf 12/25/23 12/25/23 12/25/23 Range/Units 10:41 10:55 11:13 WBC (3.8-10.6) k/uL Neutrophils # (1.3-7.7) k/uL Sodium (137-145) mmol/L Potassium (3.5-5.1) mmol/L Carbon Dioxide (22-30) mmol/L BUN (9-20) mg/dL Creatinine (0.66-1.25) mg/dL Glucose (74-99) mg/dL POC Glucose (mg/dL) 243 H 237 H 146 H (70-110) mg/dL Urine Glucose (UA) (Negative) Urine Blood (Negative) Urine Mucus (None) /hpf 12/25/23 Range/Units 11:33 WBC (3.8-10.6) k/uL Neutrophils # (1.3-7.7) k/uL Sodium (137-145) mmol/L Potassium (3.5-5.1) mmol/L Carbon Dioxide (22-30) mmol/L BUN (9-20) mg/dL Creatinine (0.66-1.25) mg/dL Glucose (74-99) mg/dL POC Glucose (mg/dL) 122 H (70-110) mg/dL Urine Glucose (UA) (Negative) Urine Blood (Negative) Urine Mucus (None) /hpf
[2023-12-25 14:04] LABS: Glucose,Whole Blood 139 mg/dL (70-110)
[2023-12-25 14:16] LABS: Glucose,Whole Blood 95 mg/dL (70-110)
[2023-12-25] MEDS: DEXTROSE 5% IN WATER 1,000 ML IV ONE (14:42)
[2023-12-25 15:05] LABS: Glucose,Whole Blood 107 mg/dL (70-110)
[2023-12-25 16:01] LABS: Glucose,Whole Blood 138 mg/dL (70-110)
[2023-12-25 17:08] LABS: Glucose,Whole Blood 131 mg/dL (70-110)
[2023-12-25 18:05] LABS: Glucose,Whole Blood 132 mg/dL (70-110)
[2023-12-25 19:04] LABS: Glucose,Whole Blood 121 mg/dL (70-110)
[2023-12-25 20:06] LABS: Glucose,Whole Blood 113 mg/dL (70-110)
[2023-12-25 21:49] LABS: Glucose,Whole Blood 81 mg/dL (70-110)
[2023-12-25] MEDS ORDERED: DEXTROSE 50% SYRINGE 50 ML IVP PRN ×2 (22:27)
[2023-12-25 22:57] LABS: Glucose,Whole Blood 225 mg/dL (70-110)
[2023-12-25 23:49] LABS: Glucose,Whole Blood 71 mg/dL (70-110)
[2023-12-26] MEDS: DEXTROSE 5% IN WATER 1,000 ML IV SCH (00:18)
[2023-12-26] MEDS: INSULIN ASPART (NovoLOG) 100 UNIT/ML VIAL SQ SCH (00:20)
[2023-12-26 01:24] LABS: Glucose,Whole Blood 156 mg/dL (70-110)
[2023-12-26 03:37] LABS: Glucose,Whole Blood 134 mg/dL (70-110)
[2023-12-26 05:52] LABS: Basophils # (A) 0.1 k/uL (0-0.2); Basophils % (A) 1 %; Eosinophils # (A) 0.1 k/uL (0-0.7); Eosinophils % (A) 1 %; HCT 41.7 % (39.0-53.0); HGB 13.6 gm/dL (13.0-17.5); Lymphocytes # (A) 2.9 k/uL (1.0-4.8); Lymphocytes % (A) 33 %; MCHC 32.5 g/dL (31.0-37.0); MCV 92.2 fL (80.0-100.0); Mean Platelet Volume 7.4; Monocytes # (A) 0.9 k/uL (0-1.0); Monocytes % (A) 10 %; Neutrophils # (A) 4.6 k/uL (1.3-7.7); Neutrophils % (A) 52 %; Platelet Count 352 k/uL (150-450); RBC 4.53 m/uL (4.30-5.90); RDW 13.2 % (11.5-15.5); WBC 8.8 k/uL (3.8-10.6)
[2023-12-26 06:01] LABS: Glucose,Whole Blood 183 mg/dL (70-110)
[2023-12-26 06:27] LABS: African American GFR (CKD) >90 (>60 ml/min/1.73 sqM); Anion Gap 4 mmol/L; Blood Urea Nitrogen 5 mg/dL (9-20); Calcium 9.6 mg/dL (8.4-10.2); Carbon Dioxide 27 mmol/L (22-30); Chloride 100 mmol/L (98-107); Glucose 159 mg/dL (74-99); Non-African American GFR(CKD) >90 (>60 ml/min/1.73 sqM); Potassium 4.1 mmol/L (3.5-5.1); Sodium 131 mmol/L (137-145)
--- NOTE | 2023-12-26 08:47 | P.PN ---
Subjective Progress Note Date: 12/26/23 Principal diagnosis: Hypoglycemia. Pulmonary consult dated December 25, 2023. 23-year-old male with history of diabetes, who presents to the emergency department, with altered mental status. The patient apparently was found by EMS, with a very low glucose, that was less than 30. The patient did receive an amp of D50 50, and an IV was obtained by EMS. The sugar increased up to 300. And upon arrival to the hospital, the patient's blood sugar was 28. The patient was placed on a D10 drip, at 75 cc an hour. He is not receiving any supplemental oxygen. The patient apparently had been managing his diabetes, without test strips. The patient has a previous history of in a suicide attempt, by injecting himself with insulin. According to Dr. Garcia, the ER physician, she got additional history, to suggest that the patient apparently hates his family, was attempting suicide again. The patient apparently uses Lantus insulin, and NovoLog FlexPen, and NovoLog for his insulin pump. His only major medical problems are diabetes, and hydrocephalus. He apparently also has a history of ADD/ADHD, and does use tobacco and marijuana on a regular basis. White count is 10.9, hemoglobin 13.7, hematocrit 41.7, platelet count normal. Sodium 134, potassium 3.4, chlorides 104, CO2 21, BUN 7, creatinine 0.56. His most recent blood sugar is 93. Urine shows 3+ glucose, small amount of blood, and rare mucus. Drug screen was negative. Brain CT showed chronic appearing moderate hydrocephalus. EKG showed sinus rhythm, with a rate of 80 bpm. Progress note dated December 26, 2023. 23-year-old male seen in the emergency department yesterday. Please see our consultation above. The patient has a history of a previous suicide attempt, by taking insulin, and inducing hypoglycemia. The patient apparently again, presents to the emergency department, with hypoglycemia, and mental status changes. It is not clear whether or not this was accidental or intentional. Anyway, the patient is currently on D5 at 40 cc an hour, room air, and NovoLog sliding scale, before meals and at bedtime. The patient is stable to be transferred out of the intensive care unit. Current laboratory data includes a white count 8.8, hemoglobin 13.6, hematocrit 41.7, and a platelet count that is normal. Sodium 131, potassium 4.1, chlorides 100, CO2 27, BUN 5, and creatinine 0.71. Glucose is 159. Calcium is 9.6. Objective - Vital Signs Vital signs: Vital Signs Temp 98.7 F 12/26/23 07:54 Pulse 65 12/26/23 07:54 Resp 14 12/26/23 07:54 BP 107/68 12/26/23 07:54 Pulse Ox 98 12/26/23 07:54 FiO2 Intake & Output 12/25/23 12/26/23 12/26/23 18:59 06:59 18:59 Intake Total 300 540 Output Total 275 Balance 300 265 Weight 63.503 kg 60.9 kg Intake: Intake, IV Titration 300 540 Amount Dextrose 10% in Water 1, 75 000 ml @ 75 mls/hr IV . [id number] ONE Rx#:[id number] Dextrose 5% in Water 1, 225 540 000 ml @ 20 mls/hr IV . Q24H ONE Rx#:[id number] Output: Urine 275 Other: Voiding Method Toilet - Exam No acute distress, oriented 3. Currently on room air. Saturation is 98%. HEENT examination is grossly unremarkable. Mucous membranes are moist. No oral lesions. Neck supple. Full range of motion. No adenopathy thyromegaly or neck vein distention. Cardiovascular examination reveals regular rhythm rate. S1-S2 normal. No S3 or S4. No discernible murmur noted. Heart rate 65 bpm. Lungs reveal clear breath sounds. Breath sounds are equal bilaterally. No adventitious lung sounds including wheezes rhonchi or crackles. Abdomen soft bowel sounds are heard. No masses or tenderness. Extremities are intact. No cyanosis clubbing or edema. Skin is without rash or lesion. Neurologic examination is brief but nonfocal. - Labs CBC & Chem 7: 12/26/23 05:21 12/26/23 05:21 Labs: Abnormal Lab Results - Last 24 Hours (Table) 12/25/23 12/25/23 12/25/23 Range/Units 10:14 10:28 10:32 WBC 10.9 H (3.8-10.6) k/uL Neutrophils # 8.6 H (1.3-7.7) k/uL Sodium (137-145) mmol/L Potassium (3.5-5.1) mmol/L Carbon Dioxide (22-30) mmol/L BUN (9-20) mg/dL Creatinine (0.66-1.25) mg/dL Glucose (74-99) mg/dL POC Glucose (mg/dL) 28 L* 177 H (70-110) mg/dL Urine Glucose (UA) (Negative) Urine Blood (Negative) Urine Mucus (None) /hpf 12/25/23 12/25/23 12/25/23 Range/Units 10:32 10:32 10:34 WBC (3.8-10.6) k/uL Neutrophils # (1.3-7.7) k/uL Sodium 134 L (137-145) mmol/L Potassium 3.4 L (3.5-5.1) mmol/L Carbon Dioxide 21 L (22-30) mmol/L BUN 7 L (9-20) mg/dL Creatinine 0.56 L (0.66-1.25) mg/dL Glucose 132 H (74-99) mg/dL POC Glucose (mg/dL) 126 H (70-110) mg/dL Urine Glucose (UA) 3+ H (Negative) Urine Blood Small H (Negative) Urine Mucus Rare H (None) /hpf 12/25/23 12/25/23 12/25/23 Range/Units 10:41 10:55 11:13 WBC (3.8-10.6) k/uL Neutrophils # (1.3-7.7) k/uL Sodium (137-145) mmol/L Potassium (3.5-5.1) mmol/L Carbon Dioxide (22-30) mmol/L BUN (9-20) mg/dL Creatinine (0.66-1.25) mg/dL Glucose (74-99) mg/dL POC Glucose (mg/dL) 243 H 237 H 146 H (70-110) mg/dL Urine Glucose (UA) (Negative) Urine Blood (Negative) Urine Mucus (None) /hpf 12/25/23 12/25/23 12/25/23 Range/Units 11:33 14:02 16:00 WBC (3.8-10.6) k/uL Neutrophils # (1.3-7.7) k/uL Sodium (137-145) mmol/L Potassium (3.5-5.1) mmol/L Carbon Dioxide (22-30) mmol/L BUN (9-20) mg/dL Creatinine (0.66-1.25) mg/dL Glucose (74-99) mg/dL POC Glucose (mg/dL) 122 H 139 H 138 H (70-110) mg/dL Urine Glucose (UA) (Negative) Urine Blood (Negative) Urine Mucus (None) /hpf 12/25/23 12/25/23 12/25/23 Range/Units 17:07 18:04 19:02 WBC (3.8-10.6) k/uL Neutrophils # (1.3-7.7) k/uL Sodium (137-145) mmol/L Potassium (3.5-5.1) mmol/L Carbon Dioxide (22-30) mmol/L BUN (9-20) mg/dL Creatinine (0.66-1.25) mg/dL Glucose (74-99) mg/dL POC Glucose (mg/dL) 131 H 132 H 121 H (70-110) mg/dL Urine Glucose (UA) (Negative) Urine Blood (Negative) Urine Mucus (None) /hpf 12/25/23 12/25/23 12/26/23 Range/Units 20:05 22:54 01:22 WBC (3.8-10.6) k/uL Neutrophils # (1.3-7.7) k/uL Sodium (137-145) mmol/L Potassium (3.5-5.1) mmol/L Carbon Dioxide (22-30) mmol/L BUN (9-20) mg/dL Creatinine (0.66-1.25) mg/dL Glucose (74-99) mg/dL POC Glucose (mg/dL) 113 H 225 H 156 H (70-110) mg/dL Urine Glucose (UA) (Negative) Urine Blood (Negative) Urine Mucus (None) /hpf 12/26/23 12/26/23 12/26/23 Range/Units 03:35 05:21 06:00 WBC (3.8-10.6) k/uL Neutrophils # (1.3-7.7) k/uL Sodium 131 L (137-145) mmol/L Potassium (3.5-5.1) mmol/L Carbon Dioxide (22-30) mmol/L BUN 5 L (9-20) mg/dL Creatinine (0.66-1.25) mg/dL Glucose 159 H (74-99) mg/dL POC Glucose (mg/dL) 134 H 183 H (70-110) mg/dL Urine Glucose (UA) (Negative) Urine Blood (Negative) Urine Mucus (None) /hpf Assessment and Plan Assessment: Acute hypoglycemia, which may relate to a suicide attempt. History of type 1 diabetes. Previous history of suicide attempt, by injecting himself with insulin, and inducing hypoglycemia, September,. History of hydrocephalus. History of major depression, with psychotic features. History of ADD/ADHD. History of tobacco use. History of marijuana use. Plan: Plan dated December 25, 2023. The patient is seen in the emergency department, room [address]. [address] Garcia, this may be another suicide attempt. He attempted this recently, in September of this year. The patient's blood glucose initially was quite low. He received dextrose, and his blood sugars dm up, but more recently, his blood sugars have dropped down again. He is currently on a D10 drip, at 75 cc an hour. We should attempt to switch him to a D5W drip, in which case, the patient can be discharged to the general medical floor. Should he need the D10 drip, he may need to be admitted to the intensive care unit. Additional recommendations and suggestions are forthcoming. Psychiatry should see him again. Will continue to follow. Plan dated December 26, 2023. The patient was transitioned to D5W, shortly after being admitted to the intensive care unit. In retrospect, the patient did not need admission to the ICU. Anyway, he was placed on D5W, at 75 cc an hour, which was reduced down to 40 cc an hour. In addition, the patient never required supplemental oxygen. The patient was placed on NovoLog sliding scale, before meals and at bedtime. Blood sugars have been well-controlled. The patient should be seen by psychiatry. The patient can be discharged out of the intensive care unit. Time with Patient: Less than 30
[2023-12-26 11:07] LABS: Glucose,Whole Blood 360 mg/dL (70-110)
[2023-12-26] MEDS ORDERED: DEXTROSE 50% SYRINGE 50 ML IVP PRN ×2 (13:23)
--- NOTE | 2023-12-26 13:26 | P.PN ---
Subjective Progress Note Date: 12/26/23 patient is a 23-year-old gentleman past medical history significant for diabetes mellitus on insulin pump who came to the ER for altered mental status. Most of the history has been obtained from EMR, patient is currently living with her girlfriends mother. According to the patient's girlfriend mother she found patient acting weird this morning. Patient worked last night and came back to in the morning and slept normally. When patient woke up he was acting not usual self. Patient slippd in the kitchen and hit his head, EMS was called and they found the patient to have low blood sugars of less than 30, patient received an amp of D50 on the spot and was brought to the ER. Initial lab work done in the ER showed WBC 10.9, hemoglobin 13.7, platelet count 373, sodium 134, potassium 3.4, anion gap 9, BUN 7, creatinine 0.56, initial blood glucose was 28 Urine drug screen was negative UA was negative for urine nitrites and leukocyte esterase. EKG done in the ER showed heart rate of , no ST segment elevation or depression seen, no T-wave inversions seen. CT head done showed no acute intracranial process, showed chronic ongoing appearing moderate hydrocephalus Because of persistent hypoglycemia, patient started on D10W infusion Patient admitted to internal medicine service 12/25. Patient seen and examined. Currently doing much better, blood sugars have improved, no longer hypoglycemic. Patient is alert and answer appropriately. REVIEW OF SYSTEMS: CONSTITUTIONAL: No fever, no malaise,. CARDIOVASCULAR: No chest pain, no palpitations, no syncope. PULMONARY: No shortness of breath, no cough, GASTROINTESTINAL: No diarrhea, no nausea, no vomiting, no abdominal pain. NEUROLOGICAL: No headaches, no weakness, PHYSICAL EXAMINATION: GENERAL: The patient is alert and oriented x3, not in any acute distress. Well developed, well nourished. HEENT: Pupils are round and equally reacting to light. EOMI. No scleral icterus. No conjunctival pallor. Normocephalic, atraumatic. No pharyngeal erythema. No thyromegaly. CARDIOVASCULAR: S1 and S2 present. No murmurs, rubs, or gallops. PULMONARY: Chest is clear to auscultation, no wheezing or crackles. ABDOMEN: Soft, nontender, nondistended, normoactive bowel sounds. No palpable organomegaly. MUSCULOSKELETAL: No joint swelling or deformity. EXTREMITIES: No cyanosis, clubbing, or pedal edema. NEUROLOGICAL: Gross neurological examination did not reveal any focal deficits. SKIN: No rashes. Assessment and plan Acute metabolic encephalopathy Hypoglycemia Hyponatremia Hypokalemia Possible suicidal attempt Chronic hydrocephalus Insulin-dependent diabetes mellitus History of ADD/ADHD. History of tobacco use. History of marijuana use. Monitor vital signs Monitor CBC Monitor CMP Continue telemetry monitoring Serial blood glucose monitoring Elopement precautions Suicide precautions Continue IV fluids Start sliding scale insulin, will start Levemir 5 units twice a day Critical care following Psych following Labs and medication were reviewed.. Continue same treatment. Continue with symptomatic treatment. Resume home medication. Monitor labs and vitals. DVT and GI prophylaxis. Further recommendations as per clinical course of the patient Dictation was produced using [employer] dictation software. please excuse any g rammatical, word or spelling errors. Objective - Vital Signs Vital signs: Vital Signs Temp 97.8 F 12/26/23 12:57 Pulse 62 12/26/23 12:57 Resp 20 12/26/23 12:57 BP 106/70 12/26/23 12:57 Pulse Ox 98 12/26/23 12:57 FiO2 Intake & Output 12/25/23 12/26/23 12/26/23 18:59 06:59 18:59 Intake Total 300 540 Output Total 275 Balance 300 265 Weight 63.503 kg 60.9 kg Intake: Intake, IV Titration 300 540 Amount Dextrose 10% in Water 1, 75 000 ml @ 75 mls/hr IV . [id number] ONE Rx#:[id number] Dextrose 5% in Water 1, 225 540 000 ml @ 20 mls/hr IV . Q24H ONE Rx#:[id number] Output: Urine 275 Other: Voiding Method Toilet - Labs CBC & Chem 7: 12/26/23 05:21 12/26/23 05:21 Labs: Abnormal Lab Results - Last 24 Hours (Table) 12/25/23 12/25/23 12/25/23 Range/Units 14:02 16:00 17:07 Sodium (137-145) mmol/L BUN (9-20) mg/dL Glucose (74-99) mg/dL POC Glucose (mg/dL) 139 H 138 H 131 H (70-110) mg/dL 12/25/23 12/25/23 12/25/23 Range/Units 18:04 19:02 20:05 Sodium (137-145) mmol/L BUN (9-20) mg/dL Glucose (74-99) mg/dL POC Glucose (mg/dL) 132 H 121 H 113 H (70-110) mg/dL 12/25/23 12/26/23 12/26/23 Range/Units 22:54 01:22 03:35 Sodium (137-145) mmol/L BUN (9-20) mg/dL Glucose (74-99) mg/dL POC Glucose (mg/dL) 225 H 156 H 134 H (70-110) mg/dL 12/26/23 12/26/23 12/26/23 Range/Units 05:21 06:00 11:06 Sodium 131 L (137-145) mmol/L BUN 5 L (9-20) mg/dL Glucose 159 H (74-99) mg/dL POC Glucose (mg/dL) 183 H 360 H (70-110) mg/dL
[2023-12-26 16:21] LABS: Glucose,Whole Blood 191 mg/dL (70-110)
--- NOTE | 2023-12-26 18:20 | P.CN ---
Psychiatric Consult - . Consult date: 12/26/23 Consult:: 12/26/23 18:07 IDENTIFYING DATA: This patient is a 23-year-old male who is employed and residing with family REASON FOR REFERRAL: Psychiatry was consulted for suicide attempt HISTORY OF PRESENT ILLNESS: The patient presented to the hospital with hypoglycemia secondary to insulin overdose. While in the emergency (per documentation), patient admitted to the physician that patient had consumed additional insulin in a suicide attempt to intentionally overdose. Today, patient is seen bedside and has poor eye contact throughout interaction. He states that he cannot recall the events leading to hospitalization including if he attempted overdose. He is nonchalant about the episodes and does not express concern, discontent, etc. Patient appears to be minimizing symptoms and does not display/discuss appropriate coping skills. Patient has a history of 2 suicide attempts by overdose on insulin, with most recent resulting in hospitalization here in September 2023. He states that the first time he attempted suicide with insulin, he had lied that it was not intentional (to prevent hospitalization) although he now claims that it was. He states that he cannot recall much of the day prior to coming to the hospital at all. He admits that he is aware how much insulin he generally needs although he does not monitor his blood sugars appropriately. He reports that he is generally the person that gives him himself insulin. However, patient admits anhedonia, poor frustration tolerance, difficulty with controlling emotions, and low energy. Patient is also not future oriented. He states that he has continued to work and is able to focus well at work. He endorses fair sleep and appetite. In psychiatric review of systems, he denies symptoms consistent with philipp. Patient denies all substance use except smoking 1-1/2 packs per day of tobacco. He states that he has not been compliant with any psychiatric medications. He also reports failure to follow up with mental health treatment. At this time patient denies any homicidal ideations, intent or plan. Patient denies any auditory, visual hallucinations and denies any paranoia or delusions, as asked and assessed. PAST PSYCHIATRIC HISTORY: Patient has a a history of seeking services through [facility] at [facility]. He currently reports not taking any psychotropic medications. He has 1 history of hospitalization here at [facility] in September 2023 after which she was discharged on Zoloft 50 mg and trazodone 50 mg at bedtime. He admits to 2 prior suicide attempts by overdose on insulin PAST MEDICAL HISTORY: Past Medical History: Diabetes Mellitus Additional Past Medical History / Comment(s): hydro cephalous History of Any Multi-Drug Resistant Organisms: None Reported Past Surgical History: No Surgical Hx Reported Past Anesthesia/Blood Transfusion Reactions: No Reported Reaction Past Psychological History: ADD/ADHD Smoking Status: Current every day smoker Past Alcohol Use History: None Reported Past Drug Use History: Marijuana ALLERGIES: as per EMR. CHEMICAL DEPENDENCY HISTORY: as per HPI. FAMILY PSYCHIATRIC/SUBSTANCE USE HISTORY: denies SOCIAL HISTORY: Patient was born in [place] and raised in [place]. Patient completed 6th grade in school. Has one 2 year old son. Is engaged, lives with fiances family in a house. Works at [employer], and denies legal problems. MENTAL STATUS EXAM: General Appearance: Patient appears to be stated age is alert, pleasant, and cooperative. Patient appears to have poor hygiene and grooming wearing hospital gown with poor eye contact. Malodorous Behavior: Patient is calmly lying in bed without any agitated behavior. Downcast eyes Speech: Patient's speech is fluent and nonpressured. Mood/Affect: Patient reports their mood is "fine", affect is dysphoric Suicidality/Homicidality: Patient denies having any current suicidal or homicidal ideation intent or plan. Perceptions: Patient denies any visual hallucinations and denies any auditory hallucinations Though content/process: There is no evidence of any delusional thought content and thought process is linear and goal-directed. Utilizing defense mechanisms of minimization and denial Memory and concentration: AOX3, grossly intact for the purposes of this session. 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 -Medication stabilization upon admission to psychiatric unit -Continue 1:1 sitter for safety -Cannot leave AMA at this time. Patient will need a petition and certification, to be completed and updated every 72 hours by primary team -When medically stable, patient is eligible for transfer to a psych bed when available. -Communicated plan to patient's nurse -Psychiatry will sign off at this time -Please contact with any questions.
[2023-12-26 20:28] LABS: Glucose,Whole Blood 253 mg/dL (70-110)
[2023-12-26] MEDS: INSULIN DETEMIR (LEVEMIR) 100 UNIT/ML SYR SQ SCH (21:09)
[2023-12-26] MEDS: HYDROmorphone 0.5 MG/0.5 ML SYRINGE IVP PRN (22:32)
[2023-12-27 06:08] LABS: Glucose,Whole Blood 82 mg/dL (70-110)
[2023-12-27 12:03] LABS: Glucose,Whole Blood 285 mg/dL (70-110)
--- NOTE | 2023-12-27 13:16 | P.PN ---
Subjective Progress Note Date: 12/27/23 patient is a 23-year-old gentleman past medical history significant for diabetes mellitus on insulin pump who came to the ER for altered mental status. Most of the history has been obtained from EMR, patient is currently living with her girlfriends mother. According to the patient's girlfriend mother she found patient acting weird this morning. Patient worked last night and came back to in the morning and slept normally. When patient woke up he was acting not usual self. Patient slippd in the kitchen and hit his head, EMS was called and they found the patient to have low blood sugars of less than 30, patient received an amp of D50 on the spot and was brought to the ER. Initial lab work done in the ER showed WBC 10.9, hemoglobin 13.7, platelet count 373, sodium 134, potassium 3.4, anion gap 9, BUN 7, creatinine 0.56, initial blood glucose was 28 Urine drug screen was negative UA was negative for urine nitrites and leukocyte esterase. EKG done in the ER showed heart rate of , no ST segment elevation or depression seen, no T-wave inversions seen. CT head done showed no acute intracranial process, showed chronic ongoing appearing moderate hydrocephalus Because of persistent hypoglycemia, patient started on D10W infusion Patient admitted to internal medicine service 12/25. Patient seen and examined. Currently doing much better, blood sugars have improved, no longer hypoglycemic. Patient is alert and answer appropriately. 12/26. Patient seen and examined. Currently on Levemir and insulin scale insulin, blood sugars are stable REVIEW OF SYSTEMS: CONSTITUTIONAL: No fever, no malaise,. CARDIOVASCULAR: No chest pain, no palpitations, no syncope. PULMONARY: No shortness of breath, no cough, GASTROINTESTINAL: No diarrhea, no nausea, no vomiting, no abdominal pain. NEUROLOGICAL: No headaches, no weakness, PHYSICAL EXAMINATION: GENERAL: The patient is alert and oriented x3, not in any acute distress. Well developed, well nourished. HEENT: Pupils are round and equally reacting to light. EOMI. No scleral icterus. No conjunctival pallor. Normocephalic, atraumatic. No pharyngeal erythema. No thyromegaly. CARDIOVASCULAR: S1 and S2 present. No murmurs, rubs, or gallops. PULMONARY: Chest is clear to auscultation, no wheezing or crackles. ABDOMEN: Soft, nontender, nondistended, normoactive bowel sounds. No palpable organomegaly. MUSCULOSKELETAL: No joint swelling or deformity. EXTREMITIES: No cyanosis, clubbing, or pedal edema. NEUROLOGICAL: Gross neurological examination did not reveal any focal deficits. SKIN: No rashes. Assessment and plan Acute metabolic encephalopathy Hypoglycemia Hyponatremia Hypokalemia Possible suicidal attempt Chronic hydrocephalus Insulin-dependent diabetes mellitus History of ADD/ADHD. History of tobacco use. History of marijuana use. Monitor vital signs Monitor CBC Monitor CMP Continue telemetry monitoring Serial blood glucose monitoring Elopement precautions Suicide precautions DC fluid Continue current insulin regimen Psych following, recommend inpatient psych admission once medically stable Labs and medication were reviewed.. Continue same treatment. Continue with symptomatic treatment. Resume home medication. Monitor labs and vitals. DVT and GI prophylaxis. Further recommendations as per clinical course of the patient Dictation was produced using [employer] dictation software. please excuse any gramm atical, word or spelling errors. Objective - Vital Signs Vital signs: Vital Signs Temp 97.8 F 12/27/23 07:03 Pulse 63 12/27/23 07:03 Resp 16 12/27/23 07:03 BP 97/71 12/27/23 07:03 Pulse Ox 100 12/27/23 07:03 FiO2 Intake & Output 12/26/23 12/27/23 12/27/23 18:59 06:59 18:59 Other: Voiding Method Toilet Toilet # Voids 4 1 - Labs CBC & Chem 7: 12/26/23 05:21 12/26/23 05:21 Labs: Abnormal Lab Results - Last 24 Hours (Table) 12/26/23 12/26/23 12/27/23 Range/Units 16:20 20:26 05:22 POC Glucose (mg/dL) 191 H 253 H (70-110) mg/dL Hemoglobin A1c 8.0 H (<=6.0) % 12/27/23 Range/Units 12:01 POC Glucose (mg/dL) 285 H (70-110) mg/dL Hemoglobin A1c (<=6.0) %
[2023-12-27 16:46] LABS: Glucose,Whole Blood 311 mg/dL (70-110)
[2023-12-27 20:59] LABS: Glucose,Whole Blood 151 mg/dL (70-110)
--- NOTE | 2023-12-27 21:51 | P.PN ---
Subjective Progress Note Date: 12/27/23 23-year-old male with history of diabetes, who presents to the emergency department, with altered mental status. The patient apparently was found by EMS, with a very low glucose, that was less than 30. The patient did receive an amp of D50 50, and an IV was obtained by EMS. The sugar increased up to 300. And upon arrival to the hospital, the patient's blood sugar was 28. The patient was placed on a D10 drip, at 75 cc an hour. He is not receiving any supplemental oxygen. The patient apparently had been managing his diabetes, without test strips. The patient has a previous history of in a suicide attempt, by injecting himself with insulin. According to Dr. Garcia, the ER physician, she got additional history, to suggest that the patient apparently hates his family, was attempting suicide again. The patient apparently uses Lantus insulin, and NovoLog FlexPen, and NovoLog for his insulin pump. His only major medical problems are diabetes, and hydrocephalus. He apparently also has a history of ADD/ADHD, and does use tobacco and marijuana on a regular basis. White count is 10.9, hemoglobin 13.7, hematocrit 41.7, platelet count normal. Sodium 134, potassium 3.4, chlorides 104, CO2 21, BUN 7, creatinine 0.56. His most recent blood sugar is 93. Urine shows 3+ glucose, small amount of blood, and rare mucus. Drug screen was negative. Brain CT showed chronic appearing moderate hydrocephalus. EKG showed sinus rhythm, with a rate of 80 bpm. December 26, 2023. 23-year-old male seen in the emergency department yesterday. Please see our consultation above. The patient has a history of a previous suicide attempt, by taking insulin, and inducing hypoglycemia. The patient apparently again, presents to the emergency department, with hypoglycemia, and mental status changes. It is not clear whether or not this was accidental or intentional. Anyway, the patient is currently on D5 at 40 cc an hour, room air, and NovoLog sliding scale, before meals and at bedtime. The patient is stable to be transferred out of the intensive care unit. Current laboratory data includes a white count 8.8, hemoglobin 13.6, hematocrit 41.7, and a platelet count that is normal. Sodium 131, potassium 4.1, chlorides 100, CO2 27, BUN 5, and creatinine 0.71. Glucose is 159. Calcium is 9.6. 12/27/2023, the patient is resting comfortably in bed. Sitter is at bedside. No specific complaints. He is on Levemir insulin and sliding scale insulin coverage. No episodes of any hypoglycemia. Taking Levemir 5 units twice daily and sliding scale insulin coverage. Most recent blood sugars of 151 from tonight. No agitation. No restlessness. Pulse ox is 99% room air oxygen. Objective - Vital Signs Vital signs: Vital Signs Temp 97.5 F L 12/27/23 13:43 Pulse 66 12/27/23 13:43 Resp 18 12/27/23 13:43 BP 114/65 12/27/23 13:43 Pulse Ox 98 12/27/23 13:43 FiO2 Intake & Output 12/26/23 12/27/23 12/27/23 18:59 06:59 18:59 Other: Voiding Method Toilet Toilet # Voids 4 1 - Exam No acute distress, oriented 3. Currently on room air. Saturation is 98%. HEENT examination is grossly unremarkable. Mucous membranes are moist. No oral lesions. Neck supple. Full range of motion. No adenopathy thyromegaly or neck vein distention. Cardiovascular examination reveals regular rhythm rate. S1-S2 normal. No S3 or S4. No discernible murmur noted. Heart rate 65 bpm. Lungs reveal clear breath sounds. Breath sounds are equal bilaterally. No adventitious lung sounds including wheezes rhonchi or crackles. Abdomen soft bowel sounds are heard. No masses or tenderness. Extremities are intact. No cyanosis clubbing or edema. Skin is without rash or lesion. Neurologic examination is brief but nonfocal. - Labs CBC & Chem 7: 12/26/23 05:21 12/26/23 05:21 Labs: Abnormal Lab Results - Last 24 Hours (Table) 12/26/23 12/26/23 12/27/23 Range/Units 16:20 20:26 05:22 POC Glucose (mg/dL) 191 H 253 H (70-110) mg/dL Hemoglobin A1c 8.0 H (<=6.0) % 12/27/23 Range/Units 12:01 POC Glucose (mg/dL) 285 H (70-110) mg/dL Hemoglobin A1c (<=6.0) % Assessment and Plan Plan: Acute hypoglycemia, recovered History of type 1 diabetes. Currently on Levemir insulin 5 units twice daily and sliding scale coverage Previous history of suicide attempt, by injecting himself with insulin, and inducing hypoglycemia, September,. History of hydrocephalus. History of major depression, with psychotic features. History of ADD/ADHD. History of tobacco use. History of marijuana use. Plan: Clinically stable Hemodynamically stable Tolerating diet Placed on Levemir insulin 5 units twice daily the patient was placed on NovoLog sliding scale, before meals and at bedtime. Blood sugars have been well-controlled. The patient should be seen by psychiatry.
[2023-12-28 06:01] LABS: Glucose,Whole Blood 142 mg/dL (70-110)
[2023-12-28 08:36] LABS: Basophils # (A) 0.08 X 10*3/uL (0.00-0.10); Basophils % (A) 0.6 %; Eosinophils # (A) 0.18 X 10*3/uL (0.04-0.35); Eosinophils % (A) 1.5 %; HCT 43.8 % (39.6-50.0); HGB 15.1 g/dL (13.0-17.0); MCHC 34.5 g/dL (32.0-37.0); MCV 87.1 FL (80.0-97.0); Mean Platelet Volume 10.5 FL (9.5-12.2); Monocytes # (A) 1.15 X 10*3/uL (0.20-1.00); Monocytes % (A) 9.3 %; NRBC Per 100 WBC 0 X 10*3/uL (0.00-0.01); Neutrophils # (A) 8.83 X 10*3/uL (1.80-7.70); Neutrophils % (A) 71.3 %; Platelet Count 409 X 10*3/uL (140-440); RBC 5.03 X 10*6/uL (4.40-5.60); RDW 12.9 % (11.5-14.5); WBC 12.38 X 10*3/uL (4.50-10.00)
[2023-12-28 08:53] LABS: ALT 13 U/L (10-49); AST 23 U/L (14-35); Albumin 4.4 g/dL (3.8-4.9); Albumin/Globulin Ratio 1.76 Ratio (1.60-3.17); Alkaline Phosphatase 96 U/L (41-126); BUN/Creat Ratio 12.57 Ratio (12.00-20.00); Blood Urea Nitrogen 8.8 mg/dL (9.0-27.0); Calcium 9.9 mg/dL (8.7-10.3); Carbon Dioxide 23.2 mmol/L (21.6-31.8); Chloride 99 mmol/L (96-109); Globulin 2.5 g/dL (1.6-3.3); Glucose 109 mg/dL (70-110); Potassium 4.9 mmol/L (3.5-5.5); Sodium 134 mmol/L (135-145); Total Bilirubin 0.7 mg/dL (0.3-1.2); Total Protein 6.9 g/dL (6.2-8.2)
--- NOTE | 2023-12-28 10:29 | P.DS ---
Providers Date of admission: 12/25/23 12:56 Expected date of discharge: 12/28/23 Attending physician: Osmani Woods MD Consults: 12/25/23 12:56 Consult Physician Urgent Consulting Provider: Phong Grider Consult Reason/Comments: suicide attempt Do you want consulting provider notified?: Yes 12/25/23 12:58 Consult Physician Stat Consulting Provider: Clark Herring Reason/Comments: hypogylcemia Do you want consulting provider notified?: Already Contacted Primary care physician: Stated None Hospital Course: Discharge diagnoses; Acute metabolic encephalopathy Hypoglycemia Hyponatremia Hypokalemia Possible suicidal attempt Chronic hydrocephalus Insulin-dependent diabetes mellitus History of ADD/ADHD. History of tobacco use. History of marijuana use. Hospital course; patient is a 23-year-old gentleman past medical history significant for diabetes mellitus on insulin pump who came to the ER for altered mental status. Most of the history has been obtained from EMR, patient is currently living with her girlfriends mother. According to the patient's girlfriend mother she found patient acting weird this morning. Patient worked last night and came back to in the morning and slept normally. When patient woke up he was acting not usual self. Patient slippd in the kitchen and hit his head, EMS was called and they found the patient to have low blood sugars of less than 30, patient received an amp of D50 on the spot and was brought to the ER. Initial lab work done in the ER showed WBC 10.9, hemoglobin 13.7, platelet count 373, sodium 134, potassium 3.4, anion gap 9, BUN 7, creatinine 0.56, initial blood glucose was 28 Urine drug screen was negative UA was negative for urine nitrites and leukocyte esterase. EKG done in the ER showed heart rate of , no ST segment elevation or depression seen, no T-wave inversions seen. CT head done showed no acute intracranial process, showed chronic ongoing appearing moderate hydrocephalus Because of persistent hypoglycemia, patient started on D10W infusion Patient admitted to internal medicine service 12/25. Patient seen and examined. Currently doing much better, blood sugars have improved, no longer hypoglycemic. Patient is alert and answer appropriately. 12/26. Patient seen and examined. Currently on Levemir and insulin scale insulin, blood sugars are stable 12/27. Patient seen and examined. Blood sugars remained stable. Psych as eval the patient, recommend inpatient psych admission. Patient is medically stable for discharge to inpatient psych PHYSICAL EXAMINATION: GENERAL: The patient is alert and oriented x3, not in any acute distress. Well developed, well nourished. HEENT: Pupils are round and equally reacting to light. EOMI. No scleral icterus. No conjunctival pallor. Normocephalic, atraumatic. No pharyngeal erythema. No thyromegaly. CARDIOVASCULAR: S1 and S2 present. No murmurs, rubs, or gallops. PULMONARY: Chest is clear to auscultation, no wheezing or crackles. ABDOMEN: Soft, nontender, nondistended, normoactive bowel sounds. No palpable organomegaly. MUSCULOSKELETAL: No joint swelling or deformity. EXTREMITIES: No cyanosis, clubbing, or pedal edema. NEUROLOGICAL: Gross neurological examination did not reveal any focal deficits. SKIN: No rashes. Dictation was produced using [employer] dictation software. please excuse any grammatical, word or spelling errors. Patient Condition at Discharge: Good Plan - Discharge Summary Discharge Rx Participant: No New Discharge Prescriptions: New Insulin Detemir (Levemir) [Levemir] 5 unit SQ BID@0700,2100 #0 each Continue Insulin Aspart (For Pump) [NovoLOG (For Pump)] 0.01 unit SQ-PUMP DIRECTED Glucagon [Gvoke Pfs 1-Pack Syringe] 1 mg SQ DIRECTED PRN PRN Reason: Blood Sugar - Low Insulin Aspart [NovoLOG Flexpen] See Protocol SQ ACHS PRN PRN Reason: pump failure Discontinued Insulin Glargine,Hum.rec.anlog [Lantus Solostar Pen] 20 units SQ DAILY Discharge Medication List Glucagon [Gvoke Pfs 1-Pack Syringe] 1 mg SQ DIRECTED PRN 10/04/23 [History] Insulin Aspart (For Pump) [NovoLOG (For Pump)] 0.01 unit SQ-PUMP DIRECTED 10/04/23 [History] Insulin Aspart [NovoLOG Flexpen] See Protocol SQ ACHS PRN 10/04/23 [History] Insulin Detemir (Levemir) [Levemir] 5 unit SQ BID@0700,2100 #0 each 12/28/23 [Rx] Follow up Appointment(s)/Referral(s): None,Stated [Primary Care Provider] - 1-2 days Discharge Disposition: TRANSFER TO PSYCH HOSP/UNIT
[2023-12-28 11:16] LABS: Glucose,Whole Blood 231 mg/dL (70-110)
[2023-12-28 14:55] VITALS: BP 128/74; PULSE 88; RESP 16; TEMP 98.8
--- NOTE | 2023-12-28 15:12 | P.PN ---
Subjective Progress Note Date: 12/28/23 23-year-old male with history of diabetes, who presents to the emergency department, with altered mental status. The patient apparently was found by EMS, with a very low glucose, that was less than 30. The patient did receive an amp of D50 50, and an IV was obtained by EMS. The sugar increased up to 300. And upon arrival to the hospital, the patient's blood sugar was 28. The patient was placed on a D10 drip, at 75 cc an hour. He is not receiving any supplemental oxygen. The patient apparently had been managing his diabetes, without test strips. The patient has a previous history of in a suicide attempt, by injecting himself with insulin. According to Dr. Garcia, the ER physician, she got additional history, to suggest that the patient apparently hates his family, was attempting suicide again. The patient apparently uses Lantus insulin, and NovoLog FlexPen, and NovoLog for his insulin pump. His only major medical problems are diabetes, and hydrocephalus. He apparently also has a history of ADD/ADHD, and does use tobacco and marijuana on a regular basis. White count is 10.9, hemoglobin 13.7, hematocrit 41.7, platelet count normal. Sodium 134, potassium 3.4, chlorides 104, CO2 21, BUN 7, creatinine 0.56. His most recent blood sugar is 93. Urine shows 3+ glucose, small amount of blood, and rare mucus. Drug screen was negative. Brain CT showed chronic appearing moderate hydrocephalus. EKG showed sinus rhythm, with a rate of 80 bpm. December 26, 2023. 23-year-old male seen in the emergency department yesterday. Please see our consultation above. The patient has a history of a previous suicide attempt, by taking insulin, and inducing hypoglycemia. The patient apparently again, presents to the emergency department, with hypoglycemia, and mental status changes. It is not clear whether or not this was accidental or intentional. Anyway, the patient is currently on D5 at 40 cc an hour, room air, and NovoLog sliding scale, before meals and at bedtime. The patient is stable to be transferred out of the intensive care unit. Current laboratory data includes a white count 8.8, hemoglobin 13.6, hematocrit 41.7, and a platelet count that is normal. Sodium 131, potassium 4.1, chlorides 100, CO2 27, BUN 5, and creatinine 0.71. Glucose is 159. Calcium is 9.6. 12/27/2023, the patient is resting comfortably in bed. Sitter is at bedside. No specific complaints. He is on Levemir insulin and sliding scale insulin coverage. No episodes of any hypoglycemia. Taking Levemir 5 units twice daily and sliding scale insulin coverage. Most recent blood sugars of 151 from tonight. No agitation. No restlessness. Pulse ox is 99% room air oxygen. On today's evaluation of 12/28/2023, the patient is resting comfortably in bed. No hypoglycemia. The patient is on Levemir insulin. Psychiatric evaluation has been obtained and the patient does meet inpatient criteria for therapy. He has history of depression. The patient has a bedside sitter. Hemodynamically s table. Blood work essentially within normal limits. The patient is going to inpatient psychiatric evaluation and treatment. Objective - Vital Signs Vital signs: Vital Signs Temp 98.5 F 12/28/23 07:00 Pulse 78 12/28/23 07:00 Resp 18 12/28/23 07:00 BP 103/68 12/28/23 07:00 Pulse Ox 98 12/28/23 07:00 FiO2 Intake & Output 12/27/23 12/28/23 12/28/23 18:59 06:59 18:59 Other: Voiding Method Toilet Toilet # Voids 1 2 - Exam No acute distress, oriented 3. Currently on room air. Saturation is 98%. HEENT examination is grossly unremarkable. Mucous membranes are moist. No oral lesions. Neck supple. Full range of motion. No adenopathy thyromegaly or neck vein distention. Cardiovascular examination reveals regular rhythm rate. S1-S2 normal. No S3 or S4. No discernible murmur noted. Heart rate 65 bpm. Lungs reveal clear breath sounds. Breath sounds are equal bilaterally. No adventitious lung sounds including wheezes rhonchi or crackles. Abdomen soft bowel sounds are heard. No masses or tenderness. Extremities are intact. No cyanosis clubbing or edema. Skin is without rash or lesion. Neurologic examination is brief but nonfocal. - Labs CBC & Chem 7: 12/28/23 04:56 12/28/23 04:56 Labs: Abnormal Lab Results - Last 24 Hours (Table) 12/27/23 12/27/23 12/27/23 Range/Units 12:01 16:45 20:58 WBC (4.50-10.00) X 10*3/uL Neutrophils # (1.80-7.70) X 10*3/uL Monocytes # (0.20-1.00) X 10*3/uL Sodium (135-145) mmol/L BUN (9.0-27.0) mg/dL POC Glucose (mg/dL) 285 H 311 H 151 H (70-110) mg/dL 12/28/23 12/28/23 12/28/23 Range/Units 04:56 04:56 05:59 WBC 12.38 H (4.50-10.00) X 10*3/uL Neutrophils # 8.83 H (1.80-7.70) X 10*3/uL Monocytes # 1.15 H (0.20-1.00) X 10*3/uL Sodium 134 L (135-145) mmol/L BUN 8.8 L (9.0-27.0) mg/dL POC Glucose (mg/dL) 142 H (70-110) mg/dL 12/28/23 Range/Units 11:14 WBC (4.50-10.00) X 10*3/uL Neutrophils # (1.80-7.70) X 10*3/uL Monocytes # (0.20-1.00) X 10*3/uL Sodium (135-145) mmol/L BUN (9.0-27.0) mg/dL POC Glucose (mg/dL) 231 H (70-110) mg/dL Assessment and Plan Plan: Acute hypoglycemia, recovered History of type 1 diabetes. Currently on Levemir insulin 5 units twice daily and sliding scale coverage Previous history of suicide attempt, by injecting himself with insulin, and inducing hypoglycemia, September,. History of hydrocephalus. History of major depression, with psychotic features. History of ADD/ADHD. History of tobacco use. History of marijuana use. Plan: Clinically stable Hemodynamically stable Tolerating diet Placed on Levemir insulin 5 units twice daily the patient was placed on NovoLog sliding scale, before meals and at bedtime. Blood sugars have been well-controlled. The patient will go for inpatient psychiatric treatment. Pulmonary will sign off.
== END 2023-12-28 15:52 | DRG 817 ==
LOC: EC 10:09 → 2SICU 12:56 → 4SSUR 12-26 08:36
PROVIDERS: ADMIT Internal Medicine; ATTEND Internal Medicine
DX: T38.3X2A Poisoning by insulin and oral hypoglycemic [antidiabetic] drugs, intentional self-harm, initial encounter (principal); G93.41 Metabolic encephalopathy; G91.8 Other hydrocephalus; Z79.4 Long term (current) use of insulin; E87.1 Hypo-osmolality and hyponatremia; E16.0 Drug-induced hypoglycemia without coma; F32.9 Major depressive disorder, single episode, unspecified; E87.6 Hypokalemia; F90.9 Attention-deficit hyperactivity disorder, unspecified type; F17.210 Nicotine dependence, cigarettes, uncomplicated; T38.3X5A Adverse effect of insulin and oral hypoglycemic [antidiabetic] drugs, initial encounter; T43.506A Underdosing of unspecified antipsychotics and neuroleptics, initial encounter; W01.0XXA Fall on same level from slipping, tripping and stumbling without subsequent striking against object, initial encounter; Y92.000 Kitchen of unspecified non-institutional (private) residence as the place of occurrence of the external cause; Z96.41 Presence of insulin pump (external) (internal); Z91.128 Patient's intentional underdosing of medication regimen for other reason; Z88.8 Allergy status to other drugs, medicaments and biological substances; Z91.51 Personal history of suicidal behavior
CPT/HCPCS: 36415; 70450; 80048; 80053; 80306; 80320; 81001; 83036; 85025; 87635; 93005; 96365; 96375; 99291

== ENCOUNTER 2023-12-28 14:25 | Inpatient (IN) | payer OTHER, MEDICAID ==
[2023-12-28] MEDS ORDERED: haloperidoL 5 MG TAB PO PRN (14:35)
[2023-12-28] MEDS ORDERED: LORazepam 2 MG/ML INJ IM PRN (14:35)
[2023-12-28] MEDS ORDERED: MAGNESIUM HYDROXIDE 2,400 MG/30 ML CUP PO PRN (14:35)
[2023-12-28] MEDS ORDERED: MAG HYDROX/AL HYDROX/SIMETH 355 ML BOTTLE PO PRN (14:35)
[2023-12-28] MEDS ORDERED: ACETAMINOPHEN TAB 325 MG TAB PO PRN (14:35)
[2023-12-28] MEDS ORDERED: HALOPERIDOL LACTATE 5 MG/ML 1 ML VIAL IM PRN (14:35)
[2023-12-28 17:42] LABS: Glucose,Whole Blood 365 mg/dL (70-110)
[2023-12-28] MEDS: INSULIN ASPART (NovoLOG) 100 UNIT/ML VIAL SQ SCH (17:44)
[2023-12-28 19:41] LABS: Glucose,Whole Blood 369 mg/dL (70-110)
[2023-12-28] MEDS: INSULIN DETEMIR (LEVEMIR) 100 UNIT/ML SYR SQ SCH (19:45)
[2023-12-29 07:43] LABS: Glucose,Whole Blood 310 mg/dL (70-110)
[2023-12-29] MEDS: IBUPROFEN 600 MG TAB PO PRN (07:58)
[2023-12-29 12:49] LABS: Glucose,Whole Blood 339 mg/dL (70-110)
--- NOTE | 2023-12-29 13:35 | P.MDCNMH ---
History of Present Illness H&P Date: 12/29/23 History of present illness; patient is a 23-year-old gentleman past medical history significant for diabetes mellitus on insulin pump who came to the ER for altered mental status. patient is currently living with her girlfriends mother. According to the patient's girlfriend mother she found patient acting weird. EMS was called and they found the patient to have low blood sugars of less than 30. Patient was brought to [facility] and was admitted to internal medicine service. Psych were consulted as there was suspicion that the might patient might have overdosed on his insulin. Psych eval the patient recommended inpatient psych admission. Patient blood sugars improved and patien t resumed on Levemir in addition to sliding scale insulin and was discharged to inpatient psych in stable condition REVIEW OF SYSTEMS: CONSTITUTIONAL: No fever, no malaise, no fatigue. HEENT: No recent visual problems or hearing problems. Denied any sore throat. CARDIOVASCULAR: No chest pain, orthopnea, PND, no palpitations, no syncope. PULMONARY: No shortness of breath, no cough, no hemoptysis. GASTROINTESTINAL: No diarrhea, no nausea, no vomiting, no abdominal pain. NEUROLOGICAL: No headaches, no weakness, no numbness. HEMATOLOGICAL: Denies any bleeding or petechiae. GENITOURINARY: Denies any burning micturition, frequency, or urgency. MUSCULOSKELETAL/RHEUMATOLOGICAL: Denies any joint pain, swelling, or any muscle pain. ENDOCRINE: Denies any polyuria or polydipsia. The rest of the 14-point review of systems is negative. PHYSICAL EXAMINATION: GENERAL: The patient is alert and oriented x3, not in any acute distress. Well developed, well nourished. HEENT: Pupils are round and equally reacting to light. EOMI. No scleral icterus. No conjunctival pallor. Normocephalic, atraumatic. No pharyngeal erythema. No thyromegaly. CARDIOVASCULAR: S1 and S2 present. No murmurs, rubs, or gallops. PULMONARY: Chest is clear to auscultation, no wheezing or crackles. ABDOMEN: Soft, nontender, nondistended, normoactive bowel sounds. No palpable organomegaly. MUSCULOSKELETAL: No joint swelling or deformity. EXTREMITIES: No cyanosis, clubbing, or pedal edema. NEUROLOGICAL: Gross neurological examination did not reveal any focal deficits. SKIN: No rashes. Assessment and plan Major depression suicidal attempt Chronic hydrocephalus Insulin-dependent diabetes mellitus History of ADD/ADHD. History of tobacco use. History of marijuana use. Monitor vital signs Monitor blood sugar levels Patient was discharged on Levemir 5 units twice a day, at this time blood sugars are elevated, will increase Levemir to 8 units twice a day Continue sliding scale insulin Continue psych meds per psychiatry team Labs and medication were reviewed.. Continue same treatment. Continue with symptomatic treatment. Resume home medication. Monitor labs and vitals. DVT and GI prophylaxis. Further recommendations as per clinical course of the patient Dictation was produced using [employer] dictation software. please excuse any grammatical, word or spelling errors. Past Medical History Past Medical History: Diabetes Mellitus Additional Past Medical History / Comment(s): hydrocephalus History of Any Multi-Drug Resistant Organisms: None Reported Past Surgical History: No Surgical Hx Reported Past Anesthesia/Blood Transfusion Reactions: No Reported Reaction Smoking Status: Current every day smoker Medications and Allergies Home Medications Medication Instructions Recorded Confirmed Type Glucagon [Gvoke Pfs 1-Pack Syringe] 1 mg SQ DIRECTED PRN 10/04/23 12/28/23 History Insulin Aspart (For Pump) [NovoLOG 0.01 unit SQ-PUMP DIRECTED 10/04/23 12/28/23 History (For Pump)] Insulin Aspart [NovoLOG Flexpen] See Protocol SQ ACHS PRN 10/04/23 12/28/23 History Insulin Detemir (Levemir) [Levemir] 5 unit SQ BID@0700,2100 #0 each 12/28/23 12/28/23 Rx Allergies Allergy/AdvReac Type Severity Reaction Status Date / Time amphetamine aspartate AdvReac very Verified 12/25/23 11:08 [From Adderall] violent amphetamine sulfate AdvReac very Verified 12/25/23 11:08 [From Adderall] violent dextroamphetamine saccharate AdvReac very Verified 12/25/23 11:08 [From Adderall] violent dextroamphetamine sulfate AdvReac very Verified 12/25/23 11:08 [From Adderall] violent Physical Exam Vitals: Vital Signs Temp Pulse Resp BP Pulse Ox 12/29/23 08:04 97.1 F L 118 H 107/71 98 12/29/23 07:05 99 133/87 12/29/23 07:04 93 120/76 12/28/23 16:32 98.7 F 93 14 112/69 98 Intake and Output 12/28/23 12/29/23 12/29/23 22:59 06:59 14:59 Other: Weight 56.501 kg Cranial Nerve Examination - Cranial Nerves Cranial Nerve II- Optic: Intact (Cranial nerves II to XII intact) Cranial Nerve III- Oculomotor: Intact Cranial Nerve IV- Trochlear: Intact Cranial Nerve V- Trigeminal: Intact Cranial Nerve - Abducens: Intact Cranial Nerve VII- Facial: Intact Cranial Nerve VIII- Auditory: Intact Cranial Nerve IX- Glossopharyngeal: Intact Cranial Nerve X- Vagus: Intact Cranial Nerve XI- Accessory: Intact Cranial Nerve XII- Hypoglossal: Intact Results Labs: Abnormal Lab Results - Last 24 Hours (Table) 12/28/23 12/28/23 12/29/23 Range/Units 17:40 19:38 07:42 POC Glucose (mg/dL) 365 H 369 H 310 H (70-110) mg/dL
[2023-12-29 17:35] LABS: Glucose,Whole Blood 409 mg/dL (70-110)
[2023-12-29 19:35] LABS: Glucose,Whole Blood 365 mg/dL (70-110)
[2023-12-29 19:53] LABS: Chol/HDL Ratio 2.37 Ratio; LDL Cholesterol,Calculated 66.1 mg/dL (0.0-131.0); VLDL Calculation 15.54 mg/dL (5.00-40.00)
[2023-12-29] MEDS: INSULIN DETEMIR (LEVEMIR) 100 UNIT/ML SYR SQ SCH (20:13)
[2023-12-29] MEDS ORDERED: INSULIN DETEMIR (LEVEMIR) 100 UNIT/ML SYR SQ SCH (21:00)
[2023-12-29] MEDS: traZODone HCL 50 MG TAB PO PRN (22:18)
[2023-12-30 07:50] LABS: Glucose,Whole Blood 151 mg/dL (70-110)
[2023-12-30] MEDS: SERTRALINE 25 MG TAB PO SCH (08:04)
--- NOTE | 2023-12-30 10:55 | P.HP ---
Psychiatric H&P - . H&P Date: 12/29/23 History & Physical: Allergies Allergy/AdvReac Type Severity Reaction Status Date / Time amphetamine aspartate AdvReac very Verified 12/25/23 11:08 [From Adderall] violent amphetamine sulfate AdvReac very Verified 12/25/23 11:08 [From Adderall] violent dextroamphetamine saccharate AdvReac very Verified 12/25/23 11:08 [From Adderall] violent dextroamphetamine sulfate AdvReac very Verified 12/25/23 11:08 [From Adderall] violent Vital Signs Temp 97.1 F L 12/29/23 08:04 Pulse 118 H 12/29/23 08:04 Resp 14 12/28/23 16:32 BP 107/71 12/29/23 08:04 Pulse Ox 98 12/29/23 08:04 FiO2 Intake & Output 12/28/23 12/29/23 12/29/23 18:59 06:59 18:59 Weight 56.501 kg Laboratory Last Values POC Glucose (mg/dL) 310 mg/dL (70-110) H 12/29/23 07:42 POC Glu [employer] ID Elen Fischer 12/29/23 07:42 12/29/23 10:54 Psychiatric Evaluation Identifying Data: Chief Complaint: : I overdosed on Insulin, but not intentionally History of Psychiatric Illness- The patient noted that he took extra dose of insulin after doing aa sliding scale and noticing that the blood sugar was high. He took 70/30 units of Novolog. He did not take any medications after that. He left work around 2 am in the morning. He rides his bike back to home. The patient remembers picking up his bike and riding towards home and reaching home but does not remember anything after that till he came to the hospital. The patient noted that everything was normal prior to this. The patient noted by mistake took dose than he was suppose to take. He did not do it on purpose, as per patient. The patient stated that he was not feeling depressed prior to this episode. He denies feeling depressed now. He denies being worthless, hopeless, suicidal or homicidal. He denied any symptoms consistent with philipp or psychosis. Past Psychiatric History: The patient noted that he has been treated for ADHD since age 14. He has been given several different stimulants. The patient stopped taking these medications around age 16. He was seen by a therapist for adjusting with being diagnosed with Diabetes at age 16. In 2022 he was admitted to this hospital for suicidal attempt after taking intentional overdose of Insulin. Past Medication History: Zoloft, Trazodone, Focalin, Risperdal. The patient noted that he was given Risperdal for ADHD. He had a dystonic reaction. Leading questions: The patient denied Depression a anxiety. Denied SI or HI. Denied symptoms consistent with psychosis Drugs and alcohol history: None. Tobacco use: One to one and a half pack a day. Past Medical history: IDDM Family History of Psychiatric Disorder: None, as per patient. No Suicide or Homicide in the family. Social History and Family History: The patient was born in [place] and raised in [place]. He grew-up with his older brother. He dropped out of 6th grade. His longest job was for 4 years with [employer]. He is engaged and has a 2 years old child. OTC: None. Allergies: Adderall. Objective: MSE: Alert and attentive. Orientation times three Dressed and Groomed: Appropriately. Pleasant and cooperative. Psychomotor Activity: Normal. Speech: Normal in tone, quality, and quantity. Mood: Good. Affect: Appropriate to the mood. SI or HI: None. Perceptual disturbance: None. Thought Content: No paranoia or other delusional thinking noted. Thought Process: Normal. Cognition: Intact Judgment and Insight: Good AIMS: Normal Labs: Available labs reviewed. Diagnosis: Possible depressive disorder, unspecified. Plan and Recommendations: Zoloft 25 mg po daily. Monitor MS and side effects of medications and adjust medications accordingly. Provide supportive psychotherapy and psychoeducation. The patient provided psychoeducation. The patient to attend [facility]. CBC with Diff, CMP, TSH, Lipid Profile, HbA1c, EKG. Medication Consent with explanation of risk/benefits and side effects: Explained and obtained.
--- NOTE | 2023-12-30 11:51 | P.PN ---
Progress Note - Text Progress Note Date: 12/30/23 Interval history: Patient was directable and agreeable to speak with designer/writer. He reports his mood is "alright", just a bit bored on the unit. He claims he does not feel depressed mood currently but feels he will be depressed if he stays here any longer. He reports sleep is fragmented, woke up at 3:30 am, slept about 6-7 hours last night. He reports fair energy and good appetite. He started the Zoloft 25 mg daily this morning, denies any side effects so far. At this time patient denies any suicidal or homicidal ideation, intent or plan. He claims the insulin overdose was accidental and denies it was a suicide attempt. He denies any auditory or visual hallucinations. Patient denies any side effects from the medications and has been compliant with meds. He does have an area of erythema on his left antecubital fossa at the IV site, appears to be spreading up the arm and down the forearm, roughly 7 inches in length. Mental status exam: General Appearance: Patient appears to be stated age, is alert, directable, and cooperative. Behavior: No agitated behavior. Patient is calm and directable. Speech: Patient's speech is fluent and non-pressured. Mood/Affect: Mood is improving mildly, affect is congruent and constricted. Suicidality/Homicidality: Patient denies having any suicidal or homicidal ideation intent or plan. Perceptions: Patient denies any auditory or visual hallucinations. Though content/process: There is no evidence of any delusional thought content and thought process is linear and goal-directed. Memory and concentration: AOX3, grossly intact for the purposes of this session Judgment and insight: Improving mildly Assessment/Plan: Continue with current diagnosis. Patient continues to meet criteria for inpatient psychiatric admission for symptom stabilization and safety. Increase Zoloft to 50 mg daily starting tomorrow for depression. Monitor for medication compliance and for any psychotropic medication side effects. Internal medicine consult for cellulitis; he will need antibiotics, possibly medical admission for IV antibiotics. Will continue to monitor ongoing response to treatment. Encouraged participation in milieu.
[2023-12-30 12:35] LABS: Glucose,Whole Blood 181 mg/dL (70-110)
[2023-12-30] MEDS: CEPHALEXIN 500 MG CAP PO SCH (16:22)
[2023-12-30 17:38] LABS: Glucose,Whole Blood 351 mg/dL (70-110)
[2023-12-30 19:34] LABS: Glucose,Whole Blood 279 mg/dL (70-110)
[2023-12-31 07:56] LABS: Glucose,Whole Blood 57 mg/dL (70-110)
[2023-12-31 08:13] LABS: Glucose,Whole Blood 81 mg/dL (70-110)
[2023-12-31] MEDS: SERTRALINE 50 MG TAB PO SCH (08:47)
--- NOTE | 2023-12-31 10:09 | P.PN ---
Progress Note - Text Progress Note Date: 12/31/23 Follow-up Mediation Review Chief Complaint: I am feeling fine Subjective: The patient indicated that he is doing better. He reports no side effects from the medications. The patient talked about getting his pump back so he avoids making mistakes. He is also talking to his mother for giving him Insulin. His girlfriend is going to school to become a nurses aide. He wants her to keep supervision on his medications. The patient has been attending the groups. The participation is adequate. The interaction with staff and peers is good. The patient is compliant with treatment recommendations. Leading questions: The patient admitted to Depression and Anxiety. Denied SI or HI. Denied symptoms consistent with psychosis Sleep and Appetite: Fair. Change in family/ living/job/financial/daily routine: No change. Change in medical condition: No change. Change in medications: No change. Side effects from Medications: None. Objective- MSE: Alert and attentive. Orientation times three. Dressed and Groomed: Appropriately. Pleasant and cooperative. Psychomotor Activity: Normal. Speech: Normal in tone, quality and quantity. Mood: Mildly depressed and anxious. Affect: Appropriate. SI or HI: None. Perceptual disturbance: None. Thought Content: No paranoia or other delusional thinking noted. Thought Process: Normal. Cognition: Intact Judgment and Insight: Fair. AIMS: Normal. Labs: No new labs. Diagnosis: No change. Plan and Recommendations: Continue current Medications. Monitor MS and side effects of medications and adjust medications accordingly. Provide supportive psychotherapy. The patient provided psychoeducation and advised Smoke cessation therapy. The patient to attend bazan activities. Medication Consent with explanation of risk/benefits and side effects: Explained and obtained.
[2023-12-31 12:50] LABS: Glucose,Whole Blood 270 mg/dL (70-110)
[2023-12-31 17:35] LABS: Glucose,Whole Blood 321 mg/dL (70-110)
[2023-12-31 19:42] LABS: Glucose,Whole Blood 391 mg/dL (70-110)
[2023-12-31] MEDS: INSULIN DETEMIR (LEVEMIR) 100 UNIT/ML SYR SQ SCH (19:57)
[2024-01-01 05:48] VITALS: RESP 17
[2024-01-01 07:38] LABS: Glucose,Whole Blood 109 mg/dL (70-110)
[2024-01-01] MEDS: INSULIN DETEMIR (LEVEMIR) 100 UNIT/ML SYR SQ SCH (10:08)
[2024-01-01 12:50] LABS: Glucose,Whole Blood 199 mg/dL (70-110)
--- NOTE | 2024-01-01 16:56 | P.PN ---
Progress Note - Text Progress Note Date: 01/01/24 Interval history: Patient was found socializing with peer in the lounge and was directable and agreeable to speak with sign writer letterer or painter. He reports his mood is "good", reports good sleep and appetite. At this time patient denies any suicidal or homicidal ideation, intent or plan. He denies any auditory or visual hallucinations. Patient denies any side effects from the medications and has been compliant with meds. He was started on Keflex 500 mg BID (12/29-01/02) and for cellulitis with good response so far; area of erythema is decreasing in size. No rash. Mental status exam: General Appearance: Patient appears to be stated age, slender adult male, facial hair. Behavior: No agitated behavior. Patient is calm and directable. Speech: Patient's speech is fluent and non-pressured. Mood/Affect: Mood is "good", affect is congruent and constricted. Suicidality/Homicidality: Patient denies having any suicidal or homicidal ideation intent or plan. Perceptions: Patient denies any auditory or visual hallucinations. Though content/process: There is no evidence of any delusional thought content and thought process is linear and goal-directed. Memory and concentration: AOX3, grossly intact for the purposes of this session Judgment and insight: Improving mildly Assessment/Plan: Continue with current diagnosis. Patient continues to meet criteria for inpatient psychiatric admission for symptom stabilization and safety. Continue medications at current dose. Monitor for medication compliance and for any psychotropic medication side effects. Will continue to monitor ongoing response to treatment. Encouraged participation in milieu. He is hopeful for discharge on Tuesday 01/02.
[2024-01-01 17:59] LABS: Glucose,Whole Blood 229 mg/dL (70-110)
[2024-01-01 19:58] LABS: Glucose,Whole Blood 264 mg/dL (70-110)
[2024-01-01] MEDS: LORazepam 1 MG TAB PO PRN (21:18)
[2024-01-02 07:43] LABS: Glucose,Whole Blood 68 mg/dL (70-110)
[2024-01-02 07:57] LABS: Glucose,Whole Blood 114 mg/dL (70-110)
[2024-01-02 08:38] VITALS: TEMP 97.1
[2024-01-02 12:39] LABS: Glucose,Whole Blood 213 mg/dL (70-110)
[2024-01-02 17:36] LABS: Glucose,Whole Blood 245 mg/dL (70-110)
[2024-01-02 19:50] LABS: Glucose,Whole Blood 256 mg/dL (70-110)
--- NOTE | 2024-01-02 22:06 | P.PN ---
Progress Note - Text Progress Note Date: 01/02/24 Interval history: Patient was directable and agreeable to speak with press writer. He reports his mood is "good", reports good sleep and appetite. He denies any concerns today. He is social with peers and interacting well with staff and peers. The cellulitis has mostly resolved; he is tolerating the antibiotic without any side effects. At this time patient denies any suicidal or homicidal ideation, intent or plan. He denies any auditory or visual hallucinations. Patient denies any side effects from the medications and has been compliant with meds. He is hopeful for discharge tomorrow. Mental status exam: General Appearance: Patient appears to be stated age, slender adult male, facial hair. Behavior: No agitated behavior. Patient is calm and directable. Speech: Patient's speech is fluent and non-pressured. Mood/Affect: Mood is "good", affect is congruent and constricted. Suicidality/Homicidality: Patient denies having any suicidal or homicidal ideation intent or plan. Perceptions: Patient denies any auditory or visual hallucinations. Though content/process: There is no evidence of any delusional thought content and thought process is linear and goal-directed. Memory and concentration: AOX3, grossly intact for the purposes of this session Judgment and insight: Improving mildly Assessment/Plan: Continue with current diagnosis. Patient continues to meet criteria for inpatient psychiatric admission for symptom stabilization and safety. Continue medications at current dose. Monitor for medication compliance and for any psychotropic medication side effects. Will continue to monitor ongoing response to treatment. Encouraged participation in milieu. He is hopeful for discharge on Tuesday 01/02.
[2024-01-03 06:33] VITALS: BP 126/83; PULSE 73
[2024-01-03 07:45] LABS: Glucose,Whole Blood 190 mg/dL (70-110)
[2024-01-03 12:03] LABS: Glucose,Whole Blood 43 mg/dL (70-110)
[2024-01-03 12:18] LABS: Glucose,Whole Blood 49 mg/dL (70-110)
[2024-01-03 12:46] LABS: Glucose,Whole Blood 127 mg/dL (70-110)
--- NOTE | 2024-01-03 17:15 | P.DS ---
Providers Date of admission: 12/28/23 15:53 Expected date of discharge: 01/03/24 Attending physician: Zachary Shannon MD Consults: 12/28/23 14:35 Consult Physician Routine Consulting Provider: [facility] Hospitalists Consult Reason/Comments: H&P and medical Do you want consulting provider notified?: Yes Primary care physician: Leslye Pabon NPC - Discharge Diagnosis(es) (1) Depression, unspecified Status: Acute Priority: High Hospital Course: Discharge Summary HPI: Identifying data: Mr. Conti is a 23 years old, single, white male, who lives in [place], [place] Chief Complaint: : I overdosed on Insulin, but not intentionally History of Psychiatric Illness- The patient noted that he took extra dose of insulin after doing aa sliding scale and noticing that the blood sugar was high. He took 70/30 units of Novolog. He did not take any medications after that. He left work around 2 am in the morning. He rides his bike back to home. The patient remembers picking up his bike and riding towards home and reaching home but does not remember anything after that till he came to the hospital. The patient noted that everything was normal prior to this. The patient noted by mistake took dose than he was supposed to take. He did not do it on purpose, as per patient. The patient stated that he was not feeling depressed prior to this episode. He denies feeling depressed now. He denies being worthless, hopeless, suicidal or homicidal. He denied any symptoms consistent with philipp or psychosis. Past Psychiatric History: The patient noted that he has been treated for ADHD since age 14. He has been given several different stimulants. The patient stopped taking these medications around age 16. He was seen by a therapist for adjusting with being diagnosed with Diabetes at age 16. In 2022 he was admitted to this hospital for suicidal attempt after taking intentional overdose of Insulin. Past Medication History: Zoloft, Trazodone, Focalin, Risperdal. The patient noted that he was given Risperdal for ADHD. He had a dystonic reaction. Leading questions: The patient denied Depression a anxiety. Denied SI or HI. Denied symptoms consistent with psychosis Drugs and alcohol history: None. Tobacco use: One to one and a half pack a day. Past Medical history: IDDM Hospital Course: After admission, the patient was involved in pharmacotherapy, bazan milieu, and individual psychodynamic psychotherapy. The patient was started Zoloft and Trazodone. The dose was titrated to obtain the desire effects. The patient tolerated medications well without any side effects. The patient was also involved in bazan activities. The patient attended the groups and participated well. The patient interacted with peers and staff well. The patient slowly started showing improvement. The hospital course was uneventful. The patient symptoms of depression, suicidal and homicidal ideations abated. The patient was stable to be discharged to out-patient care. The patient did not have any guns or weapons in possession at home. The patients insulin medications(discharge)are being taken care of by his medical consultants on the case at the hospital. MSE: Alert and attentive. Orientation times three Dressed and Groomed: Appropriately. Pleasant and cooperative. Psychomotor Activity: Normal. Speech: Normal in tone, quality, and quantity. Mood: Good. Affect: Appropriate to the mood. SI or HI: None. Perceptual disturbance: None. Thought Content: No paranoia or other delusional thinking noted. Thought Process: Normal. Cognition: Intact Judgment and Insight: Good AIMS: Normal . Diagnosis: Possible depressive disorder, unspecified Plan: The patient to be discharged today. The patient has attained good improvement since admission. He is stable to be followed as an outpatient. The patient is not suicidal or Homicidal. He does not pose any harm to self or others. The patient remains at a greater risk of self-harm or harm to others than general population on a chronic basis due to psychiatric illness and substance abuse. The patient will continue taking following medication post discharge. The importance of medication compliance and maintaining regular appointments at psychiatric out-pt and PCP clinic was explained and encouraged. The patient was also advised to seek alcohol counseling and attend AA/NA meetings. The understood and agreed with the recommendations. sheet metal worker supervisor to arrange for and conduct family meeting to ensure safety upon discharge and answer any questions. The social service technician to arrange for patients follow-up appointments at [facility] for psychiatric care along with follow-up with PCP. The patient provided psychoeducation. Advised to call 911 or go to nearest ED or call this hospital in case of acute worsening of symptomatology, severe side effects or having suicidal, homicidal thoughts and feeling unsafe at home. Patient Condition at Discharge: Stable Plan - Discharge Summary Discharge Rx Participant: No New Discharge Prescriptions: New traZODone HCL [Desyrel] 50 mg PO HS PRN 15 Days #15 tab PRN Reason: Insomnia Cephalexin [Keflex] 500 mg PO BID 7 Days #14 cap Sertraline [Zoloft] 50 mg PO DAILY 15 Days #15 tab Continue Insulin Aspart (For Pump) [NovoLOG (For Pump)] 0.01 unit SQ-PUMP DIRECTED Discontinued Insulin Detemir (Levemir) [Levemir] 5 unit SQ BID@0700,2100 #0 each Discharge Medication List Insulin Aspart (For Pump) [NovoLOG (For Pump)] 0.01 unit SQ-PUMP DIRECTED 10/04/23 [History] Cephalexin [Keflex] 500 mg PO BID 7 Days #14 cap 01/03/24 [Rx] Sertraline [Zoloft] 50 mg PO DAILY 15 Days #15 tab 01/03/24 [Rx] traZODone HCL [Desyrel] 50 mg PO HS PRN 15 Days #15 tab 01/03/24 [Rx] Follow up Appointment(s)/Referral(s): [facility] [Outside] - 01/04/24 9:00 am Leslye Pabon NPC [Primary Care Provider] - 1 Week Patient Instructions/Handouts: Anxiety (GEN) Activity/Diet/Wound Care/Special Instructions: Avoid the use of street drugs and alcohol. Take all medications as prescribed. When you are in need of refills on your medications, please contact your medical provider and/or outpatient psychiatrist/provider to have this done. Please go to your scheduled outpatient appointment for aftercare treatment. If symptoms return or become worse, call the crisis line at and/or go to the nearest emergency room for evaluation. National Suicide Hotline 988 Discharge Disposition: HOME SELF-CARE
== END 2024-01-03 13:25 | disposition home or self-care (01) | DRG 881 ==
LOC: 3MHU 15:53
PROVIDERS: ADMIT Psychiatry & Neurology Psychiatry; ATTEND Psychiatry & Neurology Psychiatry
DX: F32.9 Major depressive disorder, single episode, unspecified (principal); G91.8 Other hydrocephalus; L03.90 Cellulitis, unspecified; E11.9 Type 2 diabetes mellitus without complications; F17.200 Nicotine dependence, unspecified, uncomplicated; F41.9 Anxiety disorder, unspecified; F90.9 Attention-deficit hyperactivity disorder, unspecified type; T38.3X1A Poisoning by insulin and oral hypoglycemic [antidiabetic] drugs, accidental (unintentional), initial encounter; Z79.4 Long term (current) use of insulin; Z79.899 Other long term (current) drug therapy; Z91.51 Personal history of suicidal behavior; Z96.41 Presence of insulin pump (external) (internal)
CPT/HCPCS: 80061; 84443

== ENCOUNTER 2024-02-16 12:15 | Emergency (ER) | payer OTHER | END 2024-02-16 14:50 | disposition home or self-care (01) | LOC: EC 12:15 | CPT/HCPCS: 93005; 99284 ==

== ENCOUNTER 2024-03-28 11:42 | Emergency (ER) | payer OTHER ==
[2024-03-28 11:59] VITALS: BP 116/84; PULSE 118; RESP 16; TEMP 97.8
--- NOTE | 2024-03-28 12:15 | ED ---
Recheck HPI - General Chief Complaint: Recheck/Abnormal Lab/Rx Stated Complaint: high diabetic numbers/vomitting Time Seen by Provider: 03/28/24 11:59 Source: patient, RN notes reviewed Mode of arrival: ambulatory Limitations: no limitations - History of Present Illness Initial Comments: Quick note- this is a 24-year-old male with history of type 1 diabetes who presents emergency department chief complaint of elevated blood glucose levels and nausea and vomiting. Patient states that he has been off of insulin since Wednesday. He has been experiencing nausea and vomiting that started this morning. Endorses increase in urination. Denies abdominal pain. - Related Data Home Medications Medication Instructions Recorded Confirmed Insulin Aspart (For Pump) [NovoLOG 0.01 unit SQ-PUMP DIRECTED 10/04/23 12/28/23 (For Pump)] Previous Rx's Medication Instructions Recorded Cephalexin [Keflex] 500 mg PO BID 7 Days #14 cap 01/03/24 Sertraline [Zoloft] 50 mg PO DAILY 15 Days #15 tab 01/03/24 traZODone HCL [Desyrel] 50 mg PO HS PRN 15 Days #15 tab 01/03/24 Allergies Allergy/AdvReac Type Severity Reaction Status Date / Time amphetamine aspartate AdvReac very Verified 03/28/24 11:59 [From Adderall] violent amphetamine sulfate AdvReac very Verified 03/28/24 11:59 [From Adderall] violent dextroamphetamine saccharate AdvReac very Verified 03/28/24 11:59 [From Adderall] violent dextroamphetamine sulfate AdvReac very Verified 03/28/24 11:59 [From Adderall] violent Review of Systems ROS Statement: Those systems with pertinent positive or pertinent negative responses have been documented in the HPI. ROS Other: All systems not noted in ROS Statement are negative. Past Medical History Past Medical History: Diabetes Mellitus Additional Past Medical History / Comment(s): hydrocephalus History of Any Multi-Drug Resistant Organisms: None Reported Past Surgical History: No Surgical Hx Reported Past Anesthesia/Blood Transfusion Reactions: No Reported Reaction Past Psychological History: ADD/ADHD Smoking Status: Current every day smoker Past Alcohol Use History: None Reported Past Drug Use History: Marijuana General Exam - General Exam Comments Initial Comments: Visual Physical Exam Vital signs reviewed General: Well-appearing, nontoxic, no acute distress. Head: Normocephalic, atraumatic Eyes: PERRLA, EOMI ENT: Airway patent Chest: Nonlabored breathing Skin: No visual rash, normal skin tone Neuro: Alert and oriented 3 Musculoskeletal: No gross abnormalities Limitations: no limitations Course Vital Signs 03/28/24 11:58 Temperature 97.8 F Pulse Rate 118 H Respiratory 16 Rate Blood Pressure 116/84 O2 Sat by Pulse 96 Oximetry Medical Decision Making - Medical Decision Making I completed the quick note portion of this chart signed Caryn Mcnally PA-C - Lab Data Lab Results 03/28/24 Range/Units 12:29 Urine Color Colorless Urine Appearance Clear (Clear) Urine pH 5.0 (5.0-8.0) Ur Specific [place] 1.027 (1.001-1.035) Urine Protein Negative (Negative) Urine Glucose (UA) 4+ H (Negative) Urine Ketones 2+ H (Negative) Urine Blood Negative (Negative) Urine Nitrite Negative (Negative) Urine Bilirubin Negative (Negative) Urine Urobilinogen <2.0 (<2.0) mg/dL Ur Leukocyte Esterase Negative (Negative) Disposition Clinical Impression: Left against medical advice Disposition: LEFT AGAINST MEDICAL ADVICE Condition: Undetermined Is patient prescribed a controlled substance at d/c from ED?: No Referrals: Brittany Beckwith MD [Primary Care Provider] - 1-2 days Time of Disposition: 12:45
[2024-03-28 12:53] LABS: Appearance,Urine Clear (Clear); Bilirubin,Urine Negative (Negative); Blood,Urine Negative (Negative); Color,Urine Colorless; Glucose,Urine (UA) 4+ (Negative); Leukocyte Esterase,Urine Negative (Negative); Nitrite,Urine Negative (Negative); Protein,Urine Negative (Negative); Specific Gravity,Urine 1.027 (1.001-1.035); Urobilinogen,Urine <2.0 mg/dL (<2.0)
[2024-03-28 13:03] LABS: Ketones,Urine 2+ (Negative)
== END 2024-03-28 12:36 | disposition left against medical advice (07) ==
LOC: EC 11:42
CPT/HCPCS: 81003; 99283

== ENCOUNTER 2024-04-02 21:07 | Inpatient (IN) | payer OTHER, MEDICAID ==
[2024-04-02 21:14] LABS: Glucose,Whole Blood 102 mg/dL (70-110)
[2024-04-02] MEDS: SODIUM CHLORIDE 0.9% 500 ML 500 ML IV STA (21:30)
[2024-04-02] MEDS: SODIUM CHLORIDE 0.9% 1,000 ML IV STA ×2 (21:30→21:45)
[2024-04-02 21:32] LABS: Glucose,Whole Blood 135 mg/dL (70-110)
--- NOTE | 2024-04-02 21:35 | ED ---
Weakness HPI - General Stated complaint: AMS Time Seen by Provider: 04/02/24 21:11 Source: patient, EMS, RN notes reviewed, old records reviewed - History of Present Illness Initial comments: This is a 24-year-old male to the ER for evaluation of overdose attempt. Patient took overdose of insulin prior to arrival. Patient is history of diabetes [id number], patient states his girlfriend broke up with him causing him to take this overdose. Patient denies drugs or alcohol today MD Complaint: lack of energy -: days(s) Location: generalized Severity: severe Severity scale (1-10): 9 Consistency: constant Improves with: none Worsens with: none Context: recent illness, history of similar Associated Symptoms: denies other symptoms - Related Data Previous Rx's Medication Instructions Recorded Bacitracin Zinc Oint 1 applic TOPICAL Q8HR 30 Days #28 04/06/24 gm INSULIN ASPART (NovoLOG) [NovoLOG 0 unit SQ ACHS each 04/06/24 (formulary)] INSULIN ASPART (NovoLOG) [NovoLOG 10 unit SQ AC-TID each 04/06/24 (formulary)] Sertraline [Zoloft] 150 mg PO DAILY 30 Days #90 tab 04/06/24 Allergies Allergy/AdvReac Type Severity Reaction Status Date / Time amphetamine aspartate AdvReac very Verified 04/02/24 21:14 [From Adderall] violent amphetamine sulfate AdvReac very Verified 04/02/24 21:14 [From Adderall] violent dextroamphetamine saccharate AdvReac very Verified 04/02/24 21:14 [From Adderall] violent dextroamphetamine sulfate AdvReac very Verified 04/02/24 21:14 [From Adderall] violent Review of Systems ROS Statement: Those systems with pertinent positive or pertinent negative responses have been documented in the HPI. ROS Other: All systems not noted in ROS Statement are negative. Past Medical History Past Medical History: Diabetes Mellitus Additional Past Medical History / Comment(s): hydrocephalus History of Any Multi-Drug Resistant Organisms: None Reported Past Surgical History: No Surgical Hx Reported Past Anesthesia/Blood Transfusion Reactions: No Reported Reaction Past Psychological History: ADD/ADHD, Depression Smoking Status: Current every day smoker Past Alcohol Use History: None Reported Past Drug Use History: Marijuana - Past Family History Father History Unknown: Yes General Exam General appearance: alert, in no apparent distress Head exam: Present: atraumatic, normocephalic, normal inspection Eye exam: Present: normal appearance, PERRL, EOMI. Absent: scleral icterus, conjunctival injection, periorbital swelling ENT exam: Present: normal exam, mucous membranes moist Neck exam: Present: normal inspection. Absent: tenderness, meningismus, lymphadenopathy Respiratory exam: Present: normal lung sounds bilaterally. Absent: respiratory distress, wheezes, rales, rhonchi, stridor Cardiovascular Exam: Present: regular rate, normal rhythm, normal heart sounds. Absent: systolic murmur, diastolic murmur, rubs, gallop, clicks GI/Abdominal exam: Present: soft, normal bowel sounds. Absent: distended, tenderness, guarding, rebound, rigid Extremities exam: Present: normal inspection, full ROM, normal capillary refill. Absent: tenderness, pedal edema, joint swelling, calf tenderness Back exam: Present: normal inspection Neurological exam: Present: alert, oriented X3, CN II-XII intact Psychiatric exam: Present: normal affect, normal mood Skin exam: Present: warm, dry, intact, normal color. Absent: rash Course Vital Signs 04/02/24 04/03/24 04/03/24 21:08 02:03 02:22 Temperature 97.0 F L 98.0 F Pulse Rate 93 82 Pulse Rate [ 70 Right] Respiratory 18 16 16 Rate Blood Pressure 143/91 115/78 Blood Pressure 123/82 [Right Arm] O2 Sat by Pulse 97 98 Oximetry - Reevaluation(s) Reevaluation #1: 04/02/24 21:43 Medical records reviewed Reevaluation #2: 04/02/24 21:43 Patient states that he is suicidal Reevaluation #3: Cleared for psychiatric evaluation Reevaluation #4: Was pt. sent in by a medical professional or institution (, PA, TANK PROCESSOR, urgent care, hospital, or residential...) When possible be specific @ -no Did you speak to anyone other than the patient for history (EMS, parent, family, police, friend...)? What history was obtained from this source @ -no Did you review nursing and triage notes (agree or disagree)? Why? @ -agree Are old charts reviewed (outside hosp., previous admission, EMS record, old EKG, old radiological studies, urgent care reports/EKG's, residential records)? Report findings @ -yes Differential Diagnosis (chest pain, altered mental status, abdominal pain women, abdominal pain men, vaginal bleeding, weakness, fever, dyspnea, syncope, hea dache, dizziness, GI bleed, back pain, seizure, CVA, palpatations, mental health, musculoskeletal)? @ -prior EKG interpreted by me (3pts min.). @ -yes X-rays interpreted by me (1pt min.). @ -no CT interpreted by me (1pt min.). @ -no U/S interpreted by me (1pt. min.). @ -no What testing was considered but not performed or refused? (CT, X-rays, U/S, labs)? Why? @ -none What meds were considered but not given or refused? Why? @ -none Did you discuss the management of the patient with other professionals (professionals i.e. , PA, TANK PROCESSOR, lab, RT, psych nurse, outreach and education social worker, gm, teacher, medical officer, therapeutic case manager)? Give summary @ -no Was smoking cessation discussed for >3mins.? @ -no Was critical care preformed (if so, how long)? @ -yes31 Were there social determinants of health that impacted care today? How? (Homelessness, low income, unemployed, alcoholism, drug addiction, transportation, low edu. Level, literacy, decrease access to med. care, longterm, rehab)? @ -none Was there de-escalation of care discussed even if they declined (Discuss DNR or withdrawal of care, Hospice)? DNR status @ -no What co-morbidities impacted this encounter? (DM, HTN, Smoking, COPD, CAD, Ca ncer, CVA, ARF, Chemo, Hep., AIDS, mental health diagnosis, sleep apnea, morbid obesity)? @ -none Was patient admitted / discharged? Hospital course, mention meds given and route, prescriptions, significant lab abnormalities, going to OR and other pertinent info. @ - 24 Male will be admitted for suicide attempt secondary to psychiatric illness and depression, took overdose on insulin Transferred for inpatient psychiatric evaluation and treatment Undiagnosed new problem with uncertain prognosis? @ -no Drug Therapy requiring intensive monitoring for toxicity (Heparin, Nitro, Insulin, Cardizem)? @ -no Were any procedures done? @ -no Diagnosis/symptom? @ -suicide attempt insulin overdose Acute, or Chronic, or Acute on Chronic? @ -Acute Uncomplicated (without systemic symptoms) or Complicated (systemic symptoms)? @ -Complicated Side effects of treatment? @ -no Exacerbation, Progression, or Severe Exacerbation? @ -exacerbation Poses a threat to life or bodily function? How? (Chest pain, [place], [place], pneumonia, PE, COPD, DKA, ARF, appy, cholecystitis, CVA, Diverticulitis, Homicidal, S uicidal, threat to staff... and all critical care pts) @ -yes suicidal attempt Reevaluation #5: Differential Mental Health Depression, anxiety, bipolar, psychosis, schizophrenia, borderline personality, situational depression, adjustment disorder, behavioral disorder, brain tumor, malingering, substance abuse, encephalopathy, medication reaction, dementia, hypothyroidism, degenerative neurologic disorder, lupus.... This is not meant to be all-inclusive list EKG Findings - EKG Comments: EKG Findings:: EKG is sinus 84 RI 141 QRS 106 QTc 423 - EKG Results: EKG: interpreted by JADEN Medical Decision Making - Medical Decision Making 24 Male will be admitted for suicide attempt secondary to psychiatric illness and depression, took overdose on insulin - Lab Data Result diagrams: 04/02/24 21:24 04/02/24 21:24 Lab Results 04/02/24 04/02/24 04/02/24 Range/Units 21:13 21:24 21:24 WBC 18.6 H (3.8-10.6) k/uL RBC 4.79 (4.30-5.90) m/uL Hgb 14.2 (13.0-17.5) gm/dL Hct 43.2 (39.0-53.0) % MCV 90.3 (80.0-100.0) fL MCH 29.7 (25.0-35.0) pg MCHC 32.9 (31.0-37.0) g/dL RDW 13.2 (11.5-15.5) % Plt Count 388 (150-450) k/uL MPV 7.6 Neutrophils % 82 % Lymphocytes % 9 % Monocytes % 7 % Eosinophils % 1 % Basophils % 0 % Neutrophils # 15.1 H (1.3-7.7) k/uL Lymphocytes # 1.6 (1.0-4.8) k/uL Monocytes # 1.4 H (0-1.0) k/uL Eosinophils # 0.1 (0-0.7) k/uL Basophils # 0.1 (0-0.2) k/uL PT 10.5 (10.0-12.5) sec INR 0.9 (<1.2) APTT 23.2 (22.0-30.0) sec VBG pH (7.31-7.41) VBG pCO2 (37-51) mmHg VBG HCO3 (24-28) mmol/L Sodium (137-145) mmol/L Potassium (3.5-5.1) mmol/L Chloride (98-107) mmol/L Carbon Dioxide (22-30) mmol/L Anion Gap mmol/L BUN (9-20) mg/dL Creatinine (0.66-1.25) mg/dL Est GFR (CKD-EPI)AfAm (>60 ml/min/1.73 sqM) Est GFR (CKD-EPI)NonAf (>60 ml/min/1.73 sqM) Glucose (74-99) mg/dL POC Glucose (mg/dL) 102 (70-110) mg/dL POC Glu Commissary Worker ID Jimenez Miriam Calcium (8.4-10.2) mg/dL Phosphorus (2.5-4.5) mg/dL Magnesium (1.6-2.3) mg/dL Total Bilirubin (0.2-1.3) mg/dL AST (17-59) U/L ALT (4-49) U/L Alkaline Phosphatase (38-126) U/L Troponin I (0.000-0.034) ng/mL NT-Pro-B Natriuret Pep pg/mL Total Protein (6.3-8.2) g/dL Albumin (3.5-5.0) g/dL Urine Color Urine Appearance (Clear) Urine pH (5.0-8.0) Ur Specific [place] (1.001-1.035) Urine Protein (Negative) Urine Glucose (UA) (Negative) Urine Ketones (Negative) Urine Blood (Negative) Urine Nitrite (Negative) Urine Bilirubin (Negative) Urine Urobilinogen (<2.0) mg/dL Ur Leukocyte Esterase (Negative) Urine RBC (0-5) /hpf Urine WBC (0-5) /hpf Ur Squamous Epith Cells (0-4) /hpf Triple Phos Crystals (None) /hpf Urine Bacteria (None) /hpf Urine Mucus (None) /hpf Acetone, Qual (Negative) Influenza Type A (PCR) (Not Detectd) Influenza Type B (PCR) (Not Detectd) RSV (PCR) (Not Detectd) SARS-CoV-2 (PCR) (Not Detectd) 04/02/24 04/02/24 04/02/24 Range/Units 21:24 21:24 21:24 WBC (3.8-10.6) k/uL RBC (4.30-5.90) m/uL Hgb (13.0-17.5) gm/dL Hct (39.0-53.0) % MCV (80.0-100.0) fL MCH (25.0-35.0) pg MCHC (31.0-37.0) g/dL RDW (11.5-15.5) % Plt Count (150-450) k/uL MPV Neutrophils % % Lymphocytes % % Monocytes % % Eosinophils % % Basophils % % Neutrophils # (1.3-7.7) k/uL Lymphocytes # (1.0-4.8) k/uL Monocytes # (0-1.0) k/uL Eosinophils # (0-0.7) k/uL Basophils # (0-0.2) k/uL PT (10.0-12.5) sec INR (<1.2) APTT (22.0-30.0) sec VBG pH 7.29 L (7.31-7.41) VBG pCO2 56 H (37-51) mmHg VBG HCO3 27 (24-28) mmol/L Sodium 136 L (137-145) mmol/L Potassium 4.1 (3.5-5.1) mmol/L Chloride 106 (98-107) mmol/L Carbon Dioxide 25 (22-30) mmol/L Anion Gap 5 mmol/L BUN 11 (9-20) mg/dL Creatinine 0.58 L (0.66-1.25) mg/dL Est GFR (CKD-EPI)AfAm >90 (>60 ml/min/1.73 sqM) Est GFR (CKD-EPI)NonAf >90 (>60 ml/min/1.73 sqM) Glucose 96 (74-99) mg/dL POC Glucose (mg/dL) (70-110) mg/dL POC Glu Commissary Worker ID Calcium 9.3 (8.4-10.2) mg/dL Phosphorus 3.3 (2.5-4.5) mg/dL Magnesium 1.8 (1.6-2.3) mg/dL Total Bilirubin 0.7 (0.2-1.3) mg/dL AST 34 (17-59) U/L ALT 17 (4-49) U/L Alkaline Phosphatase 73 (38-126) U/L Troponin I <0.012 (0.000-0.034) ng/mL NT-Pro-B Natriuret Pep <20 pg/mL Total Protein 7.1 (6.3-8.2) g/dL Albumin 4.3 (3.5-5.0) g/dL Urine Color Urine Appearance (Clear) Urine pH (5.0-8.0) Ur Specific [place] (1.001-1.035) Urine Protein (Negative) Urine Glucose (UA) (Negative) Urine Ketones (Negative) Urine Blood (Negative) Urine Nitrite (Negative) Urine Bilirubin (Negative) Urine Urobilinogen (<2.0) mg/dL Ur Leukocyte Esterase (Negative) Urine RBC (0-5) /hpf Urine WBC (0-5) /hpf Ur Squamous Epith Cells (0-4) /hpf Triple Phos Crystals (None) /hpf Urine Bacteria (None) /hpf Urine Mucus (None) /hpf Acetone, Qual Negative (Negative) Influenza Type A (PCR) (Not Detectd) Influenza Type B (PCR) (Not Detectd) RSV (PCR) (Not Detectd) SARS-CoV-2 (PCR) (Not Detectd) 04/02/24 04/02/24 04/02/24 Range/Units 21:30 23:31 23:53 WBC (3.8-10.6) k/uL RBC (4.30-5.90) m/uL Hgb (13.0-17.5) gm/dL Hct (39.0-53.0) % MCV (80.0-100.0) fL MCH (25.0-35.0) pg MCHC (31.0-37.0) g/dL RDW (11.5-15.5) % Plt Count (150-450) k/uL MPV Neutrophils % % Lymphocytes % % Monocytes % % Eosinophils % % Basophils % % Neutrophils # (1.3-7.7) k/uL Lymphocytes # (1.0-4.8) k/uL Monocytes # (0-1.0) k/uL Eosinophils # (0-0.7) k/uL Basophils # (0-0.2) k/uL PT (10.0-12.5) sec INR (<1.2) APTT (22.0-30.0) sec VBG pH (7.31-7.41) VBG pCO2 (37-51) mmHg VBG HCO3 (24-28) mmol/L Sodium (137-145) mmol/L Potassium (3.5-5.1) mmol/L Chloride (98-107) mmol/L Carbon Dioxide (22-30) mmol/L Anion Gap mmol/L BUN (9-20) mg/dL Creatinine (0.66-1.25) mg/dL Est GFR (CKD-EPI)AfAm (>60 ml/min/1.73 sqM) Est GFR (CKD-EPI)NonAf (>60 ml/min/1.73 sqM) Glucose (74-99) mg/dL POC Glucose (mg/dL) 135 H 158 H (70-110) mg/dL POC Glu Commissary Worker ID Eugene Trinidad Calcium (8.4-10.2) mg/dL Phosphorus (2.5-4.5) mg/dL Magnesium (1.6-2.3) mg/dL Total Bilirubin (0.2-1.3) mg/dL AST (17-59) U/L ALT (4-49) U/L Alkaline Phosphatase (38-126) U/L Troponin I (0.000-0.034) ng/mL NT-Pro-B Natriuret Pep pg/mL Total Protein (6.3-8.2) g/dL Albumin (3.5-5.0) g/dL Urine Color Light Yellow Urine Appearance Cloudy (Clear) Urine pH 6.5 (5.0-8.0) Ur Specific [place] 1.022 (1.001-1.035) Urine Protein Negative (Negative) Urine Glucose (UA) 3+ H (Negative) Urine Ketones Negative (Negative) Urine Blood Negative (Negative) Urine Nitrite Negative (Negative) Urine Bilirubin Negative (Negative) Urine Urobilinogen <2.0 (<2.0) mg/dL Ur Leukocyte Esterase Negative (Negative) Urine RBC <1 (0-5) /hpf Urine WBC 4 (0-5) /hpf Ur Squamous Epith Cells <1 (0-4) /hpf Triple Phos Crystals Rare H (None) /hpf Urine Bacteria Rare H (None) /hpf Urine Mucus Rare H (None) /hpf Acetone, Qual (Negative) Influenza Type A (PCR) (Not Detectd) Influenza Type B (PCR) (Not Detectd) RSV (PCR) (Not Detectd) SARS-CoV-2 (PCR) (Not Detectd) 04/03/24 04/03/24 Range/Units 00:50 01:46 WBC (3.8-10.6) k/uL RBC (4.30-5.90) m/uL Hgb (13.0-17.5) gm/dL Hct (39.0-53.0) % MCV (80.0-100.0) fL MCH (25.0-35.0) pg MCHC (31.0-37.0) g/dL RDW (11.5-15.5) % Plt Count (150-450) k/uL MPV Neutrophils % % Lymphocytes % % Monocytes % % Eosinophils % % Basophils % % Neutrophils # (1.3-7.7) k/uL Lymphocytes # (1.0-4.8) k/uL Monocytes # (0-1.0) k/uL Eosinophils # (0-0.7) k/uL Basophils # (0-0.2) k/uL PT (10.0-12.5) sec INR (<1.2) APTT (22.0-30.0) sec VBG pH (7.31-7.41) VBG pCO2 (37-51) mmHg VBG HCO3 (24-28) mmol/L Sodium (137-145) mmol/L Potassium (3.5-5.1) mmol/L Chloride (98-107) mmol/L Carbon Dioxide (22-30) mmol/L Anion Gap mmol/L BUN (9-20) mg/dL Creatinine (0.66-1.25) mg/dL Est GFR (CKD-EPI)AfAm (>60 ml/min/1.73 sqM) Est GFR (CKD-EPI)NonAf (>60 ml/min/1.73 sqM) Glucose (74-99) mg/dL POC Glucose (mg/dL) 261 H (70-110) mg/dL POC Glu Commissary Worker ID Deshaun Trinidad Calcium (8.4-10.2) mg/dL Phosphorus (2.5-4.5) mg/dL Magnesium (1.6-2.3) mg/dL Total Bilirubin (0.2-1.3) mg/dL AST (17-59) U/L ALT (4-49) U/L Alkaline Phosphatase (38-126) U/L Troponin I (0.000-0.034) ng/mL NT-Pro-B Natriuret Pep pg/mL Total Protein (6.3-8.2) g/dL Albumin (3.5-5.0) g/dL Urine Color Urine Appearance (Clear) Urine pH (5.0-8.0) Ur Specific [place] (1.001-1.035) Urine Protein (Negative) Urine Glucose (UA) (Negative) Urine Ketones (Negative) Urine Blood (Negative) Urine Nitrite (Negative) Urine Bilirubin (Negative) Urine Urobilinogen (<2.0) mg/dL Ur Leukocyte Esterase (Negative) Urine RBC (0-5) /hpf Urine WBC (0-5) /hpf Ur Squamous Epith Cells (0-4) /hpf Triple Phos Crystals (None) /hpf Urine Bacteria (None) /hpf Urine Mucus (None) /hpf Acetone, Qual (Negative) Influenza Type A (PCR) Not Detected (Not Detectd) Influenza Type B (PCR) Not Detected (Not Detectd) RSV (PCR) Not Detected (Not Detectd) SARS-CoV-2 (PCR) Not Detected (Not Detectd) - EKG Data -: EKG Interpreted by Me Critical Care Time Critical Care Time: Yes Total Critical Care Time: 31 Disposition Clinical Impression: Suicidal ideation, Altered mental status, Suicide attempt, Hypoglycemia, Drug overdose Disposition: TRANSFER TO PSYCH HOSP/UNIT Condition: Serious Is patient prescribed a controlled substance at d/c from ED?: No
[2024-04-02 21:50] LABS: VBG PH 7.29 (7.31-7.41)
[2024-04-02] MEDS: DEXTROSE 5%-0.45% NACL 1,000 ML IV ONE (21:50)
[2024-04-02 21:53] LABS: Basophils # (A) 0.1 k/uL (0-0.2); Basophils % (A) 0 %; Eosinophils # (A) 0.1 k/uL (0-0.7); Eosinophils % (A) 1 %; HCT 43.2 % (39.0-53.0); HGB 14.2 gm/dL (13.0-17.5); Lymphocytes # (A) 1.6 k/uL (1.0-4.8); Lymphocytes % (A) 9 %; MCH 29.7 pg (25.0-35.0); MCHC 32.9 g/dL (31.0-37.0); MCV 90.3 fL (80.0-100.0); Mean Platelet Volume 7.6; Monocytes # (A) 1.4 k/uL (0-1.0); Monocytes % (A) 7 %; Neutrophils # (A) 15.1 k/uL (1.3-7.7); Neutrophils % (A) 82 %; Platelet Count 388 k/uL (150-450); RBC 4.79 m/uL (4.30-5.90); RDW 13.2 % (11.5-15.5); WBC 18.6 k/uL (3.8-10.6)
[2024-04-02] MEDS: ONDANSETRON 4 MG/2 ML VIAL IVP STA (21:53)
[2024-04-02 22:02] LABS: INR 0.9 (<1.2); Partial Thromboplastin Time 23.2 sec (22.0-30.0); Prothrombin Time 10.5 sec (10.0-12.5)
[2024-04-02 22:04] LABS: ALT 17 U/L (4-49); AST 34 U/L (17-59); African American GFR (CKD) >90 (>60 ml/min/1.73 sqM); Albumin 4.3 g/dL (3.5-5.0); Alkaline Phosphatase 73 U/L (38-126); Anion Gap 5 mmol/L; Blood Urea Nitrogen 11 mg/dL (9-20); Calcium 9.3 mg/dL (8.4-10.2); Carbon Dioxide 25 mmol/L (22-30); Chloride 106 mmol/L (98-107); Glucose 96 mg/dL (74-99); Magnesium 1.8 mg/dL (1.6-2.3); Non-African American GFR(CKD) >90 (>60 ml/min/1.73 sqM); Phosphorus 3.3 mg/dL (2.5-4.5); Potassium 4.1 mmol/L (3.5-5.1); Sodium 136 mmol/L (137-145); Total Bilirubin 0.7 mg/dL (0.2-1.3); Total Protein 7.1 g/dL (6.3-8.2)
[2024-04-02 22:11] LABS: NT-Pro-B-Type Natriuretic Pept <20 pg/mL
[2024-04-02 23:34] LABS: Glucose,Whole Blood 158 mg/dL (70-110)
[2024-04-03 00:04] LABS: Appearance,Urine Cloudy (Clear); Bacteria,Urine Rare /hpf; Bilirubin,Urine Negative (Negative); Blood,Urine Negative (Negative); Color,Urine Light Yellow; Glucose,Urine (UA) 3+ (Negative); Ketones,Urine Negative (Negative); Leukocyte Esterase,Urine Negative (Negative); Mucus,Urine Rare /hpf; Nitrite,Urine Negative (Negative); PH, Urine 6.5 (5.0-8.0); Protein,Urine Negative (Negative); RBC,Urine <1 /hpf (0-5); Specific Gravity,Urine 1.022 (1.001-1.035); Squamous Epithelial Cell,Urine <1 /hpf (0-4); Triple Phosphate Crystal,Urine Rare /hpf; Urobilinogen,Urine <2.0 mg/dL (<2.0); WBC,Urine 4 /hpf (0-5)
[2024-04-03 01:48] LABS: Glucose,Whole Blood 261 mg/dL (70-110)
[2024-04-03] MEDS ORDERED: LORazepam 1 MG TAB PO PRN (02:22)
[2024-04-03] MEDS ORDERED: LORazepam 2 MG/ML INJ IM PRN (02:22)
[2024-04-03] MEDS ORDERED: haloperidoL 5 MG TAB PO PRN (02:22)
[2024-04-03] MEDS ORDERED: MAGNESIUM HYDROXIDE 2,400 MG/30 ML CUP PO PRN (02:22)
[2024-04-03] MEDS ORDERED: IBUPROFEN 600 MG TAB PO PRN (02:22)
[2024-04-03] MEDS ORDERED: MAG HYDROX/AL HYDROX/SIMETH 355 ML BOTTLE PO PRN (02:22)
[2024-04-03] MEDS ORDERED: HALOPERIDOL LACTATE 5 MG/ML 1 ML VIAL IM PRN (02:22)
[2024-04-03 02:37] LABS: Glucose,Whole Blood 294 mg/dL (70-110)
[2024-04-03 07:58] LABS: Glucose,Whole Blood 347 mg/dL (70-110)
[2024-04-03] MEDS: INSULIN ASPART (NovoLOG) 100 UNIT/ML VIAL SQ SCH (08:05)
[2024-04-03] MEDS: NICOTINE 14MG/24HR PATCH TRANSDERM SCH (08:05)
[2024-04-03] MEDS: SERTRALINE 50 MG TAB PO SCH (08:05)
[2024-04-03] MEDS: INSULIN DETEMIR (LEVEMIR) 100 UNIT/ML SYR SQ SCH ×2 (09:14→20:26)
[2024-04-03 09:44] LABS: ALT 17 U/L (4-49); AST 27 U/L (17-59); Albumin 4.3 g/dL (3.5-5.0); Alkaline Phosphatase 101 U/L (38-126); Bilirubin, Delta 0.1 mg/dL (0.0-0.2); Bilirubin,Unconjugated 0.6 mg/dL (0.0-1.1); Total Bilirubin 0.7 mg/dL (0.2-1.3); Total Protein 7.1 g/dL (6.3-8.2)
--- NOTE | 2024-04-03 12:30 | P.MDCNMH ---
History of Present Illness H&P Date: 04/03/24 History of present illness; patient 24-year-old gentleman with past medical history significant for diabetes mellitus who presented to the ER because of suicidal attempt. Patient apparently just broke up with his girlfriend, patient attempted to end his life by overdosing on his insulin. Patient denies any auditory or visual hallucinations. Patient denies any homicidal thoughts. Initial lab work done in the ER showed WBC 18.6, hemoglobin 14.2, sodium 130s, potassium 4.1, BUN 11, creatinine 0.58, calcium 9.3, phosphorus 3.3, bilirubin 0.7, AST 34, ALT 17 Urine drug screen negative for infection EKG done in the ER showed heart rate of 84, no ST segment elevation or depression seen, no T-wave inversions seen. Patient admitted to psychiatry REVIEW OF SYSTEMS: CONSTITUTIONAL: No fever, no malaise, no fatigue. HEENT: No recent visual problems or hearing problems. Denied any sore throat. CARDIOVASCULAR: No chest pain, orthopnea, PND, no palpitations, no syncope. PULMONARY: No shortness of breath, no cough, no hemoptysis. GASTROINTESTINAL: No diarrhea, no nausea, no vomiting, no abdominal pain. NEUROLOGICAL: No headaches, no weakness, no numbness. HEMATOLOGICAL: Denies any bleeding or petechiae. GENITOURINARY: Denies any burning micturition, frequency, or urgency. MUSCULOSKELETAL/RHEUMATOLOGICAL: Denies any joint pain, swelling, or any muscle pain. ENDOCRINE: Denies any polyuria or polydipsia. The rest of the 14-point review of systems is negative. PHYSICAL EXAMINATION: GENERAL: The patient is alert and oriented x3, not in any acute distress. Well developed, well nourished. HEENT: Pupils are round and equally reacting to light. EOMI. No scleral icterus. No conjunctival pallor. Normocephalic, atraumatic. No pharyngeal erythema. No thyromegaly. CARDIOVASCULAR: S1 and S2 present. No murmurs, rubs, or gallops. PULMONARY: Chest is clear to auscultation, no wheezing or crackles. ABDOMEN: Soft, nontender, nondistended, normoactive bowel sounds. No palpable organomegaly. MUSCULOSKELETAL: No joint swelling or deformity. EXTREMITIES: No cyanosis, clubbing, or pedal edema. NEUROLOGICAL: Gross neurological examination did not reveal any focal deficits. SKIN: No rashes. Assessment and plan Major depression Suicidal attempt Overdose on insulin Insulin-dependent diabetes mellitus Monitor vital signs Monitor CBC Monitor CMP Elopement precautions Suicide precautions Monitor blood sugar levels, continue insulin sliding scale plus insulin Levemir Continue psych meds per psychiatry Labs and medication were reviewed.. Continue same treatment. Continue with symptomatic treatment. Resume home medication. Monitor labs and vitals. DVT and GI prophylaxis. Further recommendations as per clinical course of the patient Dictation was produced using [employer] dictation software. please excuse any grammatical, word or spelling errors. Past Medical History Past Medical History: Diabetes Mellitus Additional Past Medical History / Comment(s): type 1 diabetes mellitus History of Any Multi-Drug Resistant Organisms: None Reported Past Surgical History: No Surgical Hx Reported Past Anesthesia/Blood Transfusion Reactions: No Reported Reaction Smoking Status: Current some day smoker - Past Family History Father History Unknown: Yes Medications and Allergies Home Medications Medication Instructions Recorded Confirmed Type Insulin Aspart (For Pump) [NovoLOG 0.01 unit SQ-PUMP DIRECTED 10/04/23 04/03/24 History (For Pump)] Sertraline [Zoloft] 25 mg PO DAILY 04/03/24 04/03/24 History Sertraline [Zoloft] 100 mg PO DAILY 04/03/24 04/03/24 History Allergies Allergy/AdvReac Type Severity Reaction Status Date / Time amphetamine aspartate AdvReac very Verified 04/02/24 21:14 [From Adderall] violent amphetamine sulfate AdvReac very Verified 04/02/24 21:14 [From Adderall] violent dextroamphetamine saccharate AdvReac very Verified 04/02/24 21:14 [From Adderall] violent dextroamphetamine sulfate AdvReac very Verified 04/02/24 21:14 [From Adderall] violent Physical Exam Vitals: Vital Signs Temp Pulse Pulse Resp BP BP Pulse Ox 04/03/24 08:00 97.4 F L 82 113/79 98 04/03/24 02:22 98.0 F 70 16 123/82 98 04/03/24 02:03 82 16 115/78 97 04/02/24 21:08 97.0 F L 93 18 143/91 Intake and Output 04/02/24 04/03/24 04/03/24 22:59 06:59 14:59 Other: Weight 62.142 kg 60.384 kg Cranial Nerve Examination - Cranial Nerves Cranial Nerve II- Optic: Intact (2-12 intact) Cranial Nerve III- Oculomotor: Intact Cranial Nerve IV- Trochlear: Intact Cranial Nerve V- Trigeminal: Intact Cranial Nerve - Abducens: Intact Cranial Nerve VII- Facial: Intact Cranial Nerve VIII- Auditory: Intact Cranial Nerve IX- Glossopharyngeal: Intact Cranial Nerve X- Vagus: Intact Cranial Nerve XI- Accessory: Intact Cranial Nerve XII- Hypoglossal: Intact Results CBC & Chem 7: 04/02/24 21:24 04/02/24 21:24 Labs: Abnormal Lab Results - Last 24 Hours (Table) 04/02/24 04/02/24 04/02/24 Range/Units 21:24 21:24 21:24 WBC 18.6 H (3.8-10.6) k/uL Neutrophils # 15.1 H (1.3-7.7) k/uL Monocytes # 1.4 H (0-1.0) k/uL VBG pH 7.29 L (7.31-7.41) VBG pCO2 56 H (37-51) mmHg Sodium 136 L (137-145) mmol/L Creatinine 0.58 L (0.66-1.25) mg/dL POC Glucose (mg/dL) (70-110) mg/dL Urine Glucose (UA) (Negative) Triple Phos Crystals (None) /hpf Urine Bacteria (None) /hpf Urine Mucus (None) /hpf 04/02/24 04/02/24 04/02/24 Range/Units 21:30 23:31 23:53 WBC (3.8-10.6) k/uL Neutrophils # (1.3-7.7) k/uL Monocytes # (0-1.0) k/uL VBG pH (7.31-7.41) VBG pCO2 (37-51) mmHg Sodium (137-145) mmol/L Creatinine (0.66-1.25) mg/dL POC Glucose (mg/dL) 135 H 158 H (70-110) mg/dL Urine Glucose (UA) 3+ H (Negative) Triple Phos Crystals Rare H (None) /hpf Urine Bacteria Rare H (None) /hpf Urine Mucus Rare H (None) /hpf 04/03/24 04/03/24 04/03/24 Range/Units 01:46 02:36 07:56 WBC (3.8-10.6) k/uL Neutrophils # (1.3-7.7) k/uL Monocytes # (0-1.0) k/uL VBG pH (7.31-7.41) VBG pCO2 (37-51) mmHg Sodium (137-145) mmol/L Creatinine (0.66-1.25) mg/dL POC Glucose (mg/dL) 261 H 294 H 347 H (70-110) mg/dL Urine Glucose (UA) (Negative) Triple Phos Crystals (None) /hpf Urine Bacteria (None) /hpf Urine Mucus (None) /hpf
[2024-04-03 13:06] LABS: Glucose,Whole Blood 132 mg/dL (70-110)
--- NOTE | 2024-04-03 13:22 | P.HP ---
Psychiatric H&P - . H&P Date: 04/03/24 History & Physical: Allergies Allergy/AdvReac Type Severity Reaction Status Date / Time amphetamine aspartate AdvReac very Verified 04/02/24 21:14 From Adderall violent amphetamine sulfate AdvReac very Verified 04/02/24 21:14 From Adderall violent dextroamphetamine saccharate AdvReac very Verified 04/02/24 21:14 From Adderall violent dextroamphetamine sulfate AdvReac very Verified 04/02/24 21:14 From Adderall violent Vital Signs Temp 97.4 F L 04/03/24 08:00 Pulse 82 04/03/24 08:00 Resp 16 04/03/24 02:22 BP 113/79 04/03/24 08:00 Pulse Ox 98 04/03/24 08:00 FiO2 Intake & Output 04/02/24 04/03/24 04/03/24 18:59 06:59 18:59 Weight 60.384 kg Laboratory Last Values WBC 18.6 k/uL (3.8-10.6) H 04/02/24 21: RBC 4.79 m/uL (4.30-5.90) 04/02/24 21:24 Hgb 14.2 gm/dL (13.0-17.5) 04/02/24 21: Hct 43.2 % (39.0-53.0) 04/02/24 21:24 MCV 90.3 fL (80.0-100.0) 04/02/24 21: MCH 29.7 pg (25.0-35.0) 04/02/24 21: MCHC 32.9 g/dL (31.0-37.0) 04/02/24 21:24 RDW 13.2 % (11.5-15.5) 04/02/24 21: Plt Count 388 k/uL (150-450) 04/02/24 21: MPV 7.6 04/02/24 21: Neutrophils % 82 % 04/02/24 21:24 Lymphocytes % 9 % 04/02/24 21: Monocytes % 7 % 04/02/24 21:24 Eosinophils % 1 % 04/02/24 21: Basophils % 0 % 04/02/24 21:24 Neutrophils # 15.1 k/uL (1.3-7.7) H 04/02/24 21:24 Lymphocytes # 1.6 k/uL (1.0-4.8) 04/02/24 21:24 Monocytes # 1.4 k/uL (0-1.0) H 04/02/24 21:24 Eosinophils # 0.1 k/uL (0-0.7) 04/02/24 21:24 Basophils # 0.1 k/uL (0-0.2) 04/02/24 21:24 PT 10.5 sec (10.0-12.5) 04/02/24 21:24 INR 0.9 (<1.2) 04/02/24 21:24 APTT 23.2 sec (22.0-30.0) 04/02/24 21:24 VBG pH 7.29 (7.31-7.41) L 04/02/24 21:24 VBG pCO2 56 mmHg (37-51) H 04/02/24 21:24 VBG HCO3 27 mmol/L (24-28) 04/02/24 21:24 Sodium 136 mmol/L (137-145) L 04/02/24 21:24 Potassium 4.1 mmol/L (3.5-5.1) 04/02/24 21:24 Chloride 106 mmol/L (98-107) 04/02/24 21:24 Carbon Dioxide 25 mmol/L (22-30) 04/02/24 21:24 Anion Gap 5 mmol/L 04/02/24 21:24 BUN 11 mg/dL (9-20) 04/02/24 21:24 Creatinine 0.58 mg/dL (0.66-1.25) L 04/02/24 21:24 Est GFR (CKD-EPI)AfAm >90 (>60 ml/min/1.73 sqM) 04/02/24 21:24 Est GFR (CKD-EPI)NonAf >90 (>60 ml/min/1.73 sqM) 04/02/24 21:24 Glucose 96 mg/dL (74-99) 04/02/24 21:24 POC Glucose (mg/dL) 132 mg/dL (70-110) H 04/03/24 13:04 POC Glu Tick Eradicator ID Shabnam Vega 04/03/24 13:[address] Glu mg/dL 209 mg/dL 04/03/24 08:55 Hemoglobin A1c 8.9 % (<=6.0) H 04/03/24 08:55 Calcium 9.3 mg/dL (8.4-10.2) 04/02/24 21:24 Phosphorus 3.3 mg/dL (2.5-4.5) 04/02/24 21:24 Magnesium 1.8 mg/dL (1.6-2.3) 04/02/24 21:24 Total Bilirubin 0.7 mg/dL (0.2-1.3) 04/03/24 08:55 Conjugated Bilirubin 0.0 mg/dL (0.0-0.3) 04/03/24 08:55 Unconjugated Bilirubin 0.6 mg/dL (0.0-1.1) 04/03/24 08:55 Delta Bilirubin 0.1 mg/dL (0.0-0.2) 04/03/24 08:55 AST 27 U/L (17-59) 04/03/24 08:55 ALT 17 U/L (4-49) 04/03/24 08:55 Alkaline Phosphatase 101 U/L (38-126) 04/03/24 08:55 Troponin I <0.012 ng/mL (0.000-0.034) 04/02/24 21:24 NT-Pro-B Natriuret Pep <20 pg/mL 04/02/24 21:24 Total Protein 7.1 g/dL (6.3-8.2) 04/03/24 08:55 Albumin 4.3 g/dL (3.5-5.0) 04/03/24 08:55 TSH 1.190 mIU/L (0.465-4.680) 04/03/24 08:55 Urine Color Light Yellow 04/02/24 23:53 Urine Appearance Cloudy (Clear) 04/02/24 23:53 Urine pH 6.5 (5.0-8.0) 04/02/24 23:53 Ur Specific [place] 1.022 (1.001-1.035) 04/02/24 23:53 Urine Protein Negative (Negative) 04/02/24 23:53 Urine Glucose (UA) 3+ (Negative) H 04/02/24 23:53 Urine Ketones Negative (Negative) 04/02/24 23:53 Urine Blood Negative (Negative) 04/02/24 23:53 Urine Nitrite Negative (Negative) 04/02/24 23:53 Urine Bilirubin Negative (Negative) 04/02/24 23:53 Urine Urobilinogen <2.0 mg/dL (<2.0) 04/02/24 23:53 Ur Leukocyte Esterase Negative (Negative) 04/02/24 23:53 Urine RBC <1 /hpf (0-5) 04/02/24 23:53 Urine WBC 4 /hpf (0-5) 04/02/24 23:53 Ur Squamous Epith Cells <1 /hpf (0-4) 04/02/24 23:53 Triple Phos Crystals Rare /hpf (None) H 04/02/24 23:53 Urine Bacteria Rare /hpf (None) H 04/02/24 23:53 Urine Mucus Rare /hpf (None) H 04/02/24 23:53 Acetone, Qual Negative (Negative) 04/02/24 21:24 Influenza Type A (PCR) Not Detected (Not Detectd) 04/03/24 00:50 Influenza Type B (PCR) Not Detected (Not Detectd) 04/03/24 00:50 RSV (PCR) Not Detected (Not Detectd) 04/03/24 00:50 SARS-CoV-2 (PCR) Not Detected (Not Detectd) 04/03/24 00:50 04/03/24 13:06 IDENTIFYING DATA: Patient is a 24-year-old, single male, currently living in [place] in a camper on his ex girlfriend's mother's property, unemployed HPI: Patient presented to the hospital on 04/02 with overdose. Per ED note, "This is a 24-year-old male to the ER for evaluation of overdose attempt. Pat rosemary took overdose of insulin prior to arrival. Patient is history of diabetes [id number], patient states his girlfriend broke up with him causing him to take this overdose. Patient denies drugs or alcohol today." Per chart review, "patient does admit to intentional overdose of insulin was partially to get attention due to him trying to get back with his ex." Patient seen and evaluated on the unit. He states his girlfriend of 4 years and him are on a break so that they can work on things independently before reuniting. He states he has been living in a camper on his ex-girlfriend's mother's property and yesterday he became very depressed due to his inability to see his ex. He reports impulsively taking 50 units of his insulin in an attempt to end his life. He states now being grateful that the suicide attempt was not carried through as he realizes he has his 2-1/2-year-old son to live for. He reports medication adherence and states he self increased his Zoloft from 50 mg to 125 mg 4 weeks ago and has been consistently taking this dose since then. He states other than yesterday feeling depressed, this medication has been helpful for his symptoms and he also sees a psychiatrist and therapist at [facility]. Patient denies any current suicidal or homicidal ideations intent or plan. At this time patient denies any auditory or visual hallucinations. Patient denies any flight of ideas racing thoughts and increased in goal directed behavior. PAST PSYCHIATRIC HISTORY: Patient has a history of ADHD and depression. Patient is currently on Zoloft 125 mg daily and reports previously being on trazodone as needed during his most recent hospitalization. Patient reports 3 prior suicide attempts all via overdose on insulin most recent in December 2023. Patient states seeing both a psychiatrist and therapist at [facility]. 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 He reports smoking 1.5 packs/day of cigarettes FAMILY PSYCHIATRIC/SUBSTANCE USE HISTORY: Patient reports his mom previously abused alcohol SOCIAL HISTORY: Patient was born in [place] and raised in [facility][1]. He is currently staying at a camper on his ex-girlfriend's mother's property. He states having 1 son who is 2-1/2 years old and lives with his child's mother. He is unemployed but has applied for Social Security income. He completed school up to the 6 grade. MENTAL STATUS EXAM: General Appearance: Patient appears to be then, stated age is alert, directable, and attempts to cooperate. Patient appears to have fair hygiene and grooming. Behavior: Patient is seated without any agitated behavior. Speech: Patient's speech is fluent and nonpressured. Mood/Affect: Patient reports their mood is depressed, affect is congruent and constricted. Suicidality/Homicidality: Patient denies having any homicidal ideation intent or plan. Denies any suicidal ideations intent or plan Perceptions: Patient denies any visual hallucinations and denies any auditory hallucinations Though content/process: There is no evidence of any delusional thought content and thought process is linear and goal-directed. Memory and concentration: AOX3, grossly intact for the purposes of this session. Can spell "WORLD" backwards Judgment and insight: Poor STRENGTHS/WEAKNESSES: strength is that patient is resilient and and has support from his ex's family. Weakness is that patient has poor judgment and is impulsive INTELLECT: Average IMPRESSIONS: Suicide attempt via OD on insulin Major depressive disorder, recurrent, moderate Nicotine dependence PLAN: -Patient is admitted under voluntary status to [facility] for stabilization of psychiatric symptoms and safety. Patient has signed adult voluntary form and medication consent and is placed in patient's chart. -Medications : Increase Zoloft to 150 mg daily for depression starting tomorrow -Ativan and Haldol PRN for agitation/aggression -Patient was informed of the risks, benefits and side effects of the medication and patient verbally consented to taking the medications. Patient signed med consent form and was placed in chart. -Internal Medicine consult to perform medical evaluation and physical. -NRT -nicotine patch -SW on board for discharge planning. Encourage patient to participate in groups to work on coping skills. Anticipate discharge later this week, home with ex mother
[2024-04-03 15:13] LABS: Chol/HDL Ratio 2.84 Ratio; LDL Cholesterol,Calculated 96.4 mg/dL (0.0-131.0); VLDL Calculation 13.74 mg/dL (5.00-40.00)
[2024-04-03 15:35] LABS: Glucose,Whole Blood 331 mg/dL (70-110)
[2024-04-03] MEDS: INSULIN ASPART (NovoLOG) 100 UNIT/ML VIAL SQ ONE (16:07)
[2024-04-03 17:37] LABS: Glucose,Whole Blood 138 mg/dL (70-110)
[2024-04-03 20:22] LABS: Glucose,Whole Blood 217 mg/dL (70-110)
[2024-04-04] MEDS: traZODone HCL 50 MG TAB PO PRN (00:23)
[2024-04-04 08:17] LABS: Glucose,Whole Blood 42 mg/dL (70-110)
[2024-04-04 08:17] LABS: Glucose,Whole Blood 42 mg/dL (70-110)
[2024-04-04 08:32] LABS: Glucose,Whole Blood 63 mg/dL (70-110)
[2024-04-04 08:48] LABS: Glucose,Whole Blood 109 mg/dL (70-110)
[2024-04-04 09:04] LABS: Glucose,Whole Blood 163 mg/dL (70-110)
[2024-04-04] MEDS: SERTRALINE 50 MG TAB PO SCH (09:46)
--- NOTE | 2024-04-04 10:00 | P.PN ---
Progress Note - Text Progress Note Date: 04/04/24 Interval History: Patient was seen wandering the hallways and was directable and agreeable to sp whitney with sign writer hand in the office. He states sleeping well due to him taking as needed trazodone however getting to sleep was rough. Reports suicidal ideations at nighttime related to the break-up of his ex. He states he was able to color which helped him however he predominantly struggles with these thoughts at nighttime. He states appetite is okay and he denied any lightheadedness or nausea related to his hypoglycemia this morning. Medical team was contacted regarding this. He reports depression is pretty high today however he denied any anxiety. He mentioned that he did speak to his ex mother and that he will return home with her once discharged. At this time patient denies any suicidal or homical ideations, intent or plan. Patient denies any auditory, visual hallucinations and denies any paranoia or delusions. Patient denies any side effects from the medications and has been compliant with meds. Mental Status Exam: General Appearance: Patient appears to be stated age is alert, in, directable, and cooperative. Disheveled appearance Behavior: Patient is calmly seated without any agitated behavior. Speech: Patient's speech is fluent and nonpressured. Mood/Affect: Mood is "depressed", affect is congruent and constricted. Suicidality/Homicidality: Patient denies having any current suicidal or homicidal ideation intent or plan. Perceptions: Patient denies any visual hallucinations and denies any auditory hallucinations Though content/process: There is no evidence of any delusional thought content and thought process is linear and goal-directed. Memory and concentration: AOX3, grossly intact for the purposes of this session Judgment and insight: Improving mildly Assessment Suicide attempt via OD on insulin Major depressive disorder, recurrent, moderate Nicotine dependence Plan: -Patient continues to meet criteria for inpatient psychiatric admission for symptom stabilization and safety. Patient has signed adult voluntary form and medication consent and was placed in patient's chart. -Medications: Zoloft increased to 150 mg daily today for depression and continue trazodone 25 mg as needed at bedtime for sleep -When necessary Ativan and Haldol for agitation/aggression. -Labs: Reviewed -NRT -nicotine patch -SW on board for discharge planning. Encouraged the patient to participate in milieu. Anticipate discharge later this week, home with ex mother
[2024-04-04 10:19] VITALS: RESP 17; TEMP 97.1
[2024-04-04 12:52] LABS: Glucose,Whole Blood 250 mg/dL (70-110)
[2024-04-04] MEDS: NICOTINE GUM (POLACRILEX) 2 MG GUM BUCCAL PRN (13:44)
[2024-04-04 17:48] LABS: Glucose,Whole Blood 135 mg/dL (70-110)
[2024-04-04 19:44] LABS: Glucose,Whole Blood 136 mg/dL (70-110)
[2024-04-05] MEDS: BACITRACIN OINT 1 EACH PACKET TOPICAL SCH (00:36)
[2024-04-05 01:08] LABS: Glucose,Whole Blood 172 mg/dL (70-110)
[2024-04-05 07:51] LABS: Glucose,Whole Blood 48 mg/dL (70-110)
[2024-04-05 08:03] LABS: Glucose,Whole Blood 87 mg/dL (70-110)
--- NOTE | 2024-04-05 11:32 | P.PN ---
Progress Note - Text Progress Note Date: 04/05/24 Interval History: Patient was seen wandering the hallways and was directable and agreeable to sp whitney with casualty underwriter in the office. He states feeling "tired" due to issues with his roommate snoring. He was offered earplugs but he states they never fit in his ear. He reports good mood otherwise and denied any anxiety. He states his appetite is okay. He states speaking to a [facility] liaison earlier today and the plan is for him to start outpatient therapy. Discussed with patient the plan for discharge tomorrow back home with his ex [id number] and patient was agreeable to this. Patient's ex [id number] has locked all of patient's medications up including his insulin which is in a locked box. At this time patient denies any suicidal or homical ideations, intent or plan. Patient denies any auditory, visual hallucinations and denies any paranoia or delusions. Patient denies any side effects from the medications and has been compliant with meds. Mental Status Exam: General Appearance: Patient appears to be stated age is alert, directable, and cooperative. Poor hygiene Behavior: Patient is calmly seated without any agitated behavior. Speech: Patient's speech is fluent and nonpressured. Mood/Affect: Mood is improving mildly, affect is congruent and constricted. Suicidality/Homicidality: Patient denies having any suicidal or homicidal ideation intent or plan. Perceptions: Patient denies any visual hallucinations and denies any auditory hallucinations Though content/process: There is no evidence of any delusional thought content and thought process is linear and goal-directed. Memory and concentration: AOX3, grossly intact for the purposes of this session Judgment and insight: Improving mildly Assessment Suicide attempt via OD on insulin Major depressive disorder, recurrent, moderate Nicotine dependence Plan: -Patient continues to meet criteria for inpatient psychiatric admission for symptom stabilization and safety. Patient has signed adult voluntary form and medication consent and was placed in patient's chart. -Medications: Continue Zoloft 150 mg daily for depression and trazodone 25 mg as needed at bedtime for sleep -When necessary Ativan and Haldol for agitation/aggression. -Labs: Reviewed -NRT -nicotine patch and as needed gum -SW on board for discharge planning. Encouraged the patient to participate in milieu. Anticipate discharge tomorrow, home with ex [id number]
[2024-04-05 12:43] LABS: Glucose,Whole Blood 226 mg/dL (70-110)
[2024-04-05 15:31] LABS: Glucose,Whole Blood 490 mg/dL (70-110)
[2024-04-05] MEDS: INSULIN DETEMIR (LEVEMIR) 100 UNIT/ML SYR SQ ONE (16:19)
[2024-04-05 17:16] LABS: Glucose,Whole Blood 438 mg/dL (70-110)
[2024-04-05] MEDS: INSULIN ASPART (NovoLOG) 100 UNIT/ML VIAL SQ SCH (17:29)
[2024-04-05 19:45] LABS: Glucose,Whole Blood 279 mg/dL (70-110)
[2024-04-05] MEDS: ACETAMINOPHEN TAB 325 MG TAB PO PRN (20:59)
[2024-04-05 21:10] LABS: Glucose,Whole Blood 205 mg/dL (70-110)
[2024-04-06 05:52] LABS: Glucose,Whole Blood 42 mg/dL (70-110)
[2024-04-06 06:23] LABS: Glucose,Whole Blood 89 mg/dL (70-110)
[2024-04-06 06:42] VITALS: BP 113/74; PULSE 76
[2024-04-06 07:35] LABS: Glucose,Whole Blood 237 mg/dL (70-110)
[2024-04-06] MEDS ORDERED: INSULIN DETEMIR (LEVEMIR) 100 UNIT/ML SYR SQ SCH (09:00)
--- NOTE | 2024-04-06 12:33 | P.DS ---
Providers Date of admission: 04/03/24 02:20 Expected date of discharge: 04/06/24 Attending physician: Lesli Farmer MD Consults: 04/03/24 02:22 Consult Physician Routine Consulting Provider: Shanell Bravo Consult Reason/Comments: H & P Do you want consulting provider notified?: Yes Primary care physician: Brittany Beckwith - Discharge Diagnosis(es) (1) Suicide attempt Status: Acute Priority: High (2) Major depressive disorder, recurrent episode, moderate Status: Acute Priority: High (3) Nicotine dependence Status: Acute Priority: Low Hospital Course: Admission HPI: Admission note was completed by medical writer "Patient presented to the hospital on 04/02 with overdose. Per ED note, "This is a 24-year-old male to the ER for evaluation of overdose attempt. Patient took overdose of insulin prior to arrival. Patient is history of diabetes [id number], patient states his girlfriend broke up with him causing him to take this overdose. Patient denies drugs or alcohol today." Per chart review, "patient does admit to intentional overdose of insulin was partially to get attention due to him trying to get back with his ex." Patient seen and evaluated on the unit. He states his girlfriend of 4 years and him are on a break so that they can work on things independently before reuniting. He states he has been living in a camper on his ex-girlfriend's mother's property and yesterday he became very depressed due to his inability to see his ex. He reports impulsively taking 50 units of his insulin in an attempt to end his life. He states now being grateful that the suicide attempt was not carried through as he realizes he has his 2-1/2-year-old son to live for. He reports medication adherence and states he self increased his Zoloft from 50 mg to 125 mg 4 weeks ago and has been consistently taking this dose since then. He states other than yesterday feeling depressed, this medication has been helpful for his symptoms and he also sees a psychiatrist and therapist at [facility]. Patient denies any current suicidal or homicidal ideations intent or plan. At this time patient denies any auditory or visual hallucinations. Patient denies any flight of ideas racing thoughts and increased in goal directed behavior. " Hospital course: Upon admission to the unit patient was directable and agreeable to commence treatment and signed adult voluntary form.. Patient got along well with other patients on the unit and followed unit protocol. Patient was compliant with the medications and denied any side effects throughout hospital course. Patient was started on Zoloft and this was increased to 150 mg daily for depression and trazodone 25 mg as needed at bedtime for sleep. Patient spoke of his stressors specially with his ex girlfriend and engaged in therapy both group and individual. Patient was also seen by medical team for history and physical exam. Throughout the course of the hospitalization patient gradually improved with regards to mood, anxiety, sleep and returned back to their baseline level of functioning became more future oriented with improved insight and judgment. On the day of discharge patient denied any suicidal or homicidal ideations intent or plan denied any auditory or visual hallucinations. The patient denied any access to guns or weapons. Patient denied any paranoia and did not endorse any delusions. Patient does not have a significant history of substance abuse and was counseled on abstaining from all substances including alcohol and marijuana. Patient was also counseled on the medications and need for regular compliance and was encouraged to follow-up with their outpatient appointment for mental health and also for primary care. Prior to discharge a family meeting will be arranged by social media marketing specialist to answer any questions and ensure safety upon discharge incuding making sure that guns/weapons are either removed from the home or locked away. Mental status exam: General Appearance: Patient appears to be stated age is alert, pleasant, and cooperative. Patient is in no acute distress and has improved hygiene and grooming Behavior: Patient is calmly seated without any agitated behavior. Speech: Patient's speech is fluent and nonpressured. Mood/Affect: Patient reports their mood is "good, ready to go", affect is congruent and euthymic. Suicidality/Homicidality: Patient denies having any suicidal or homicidal ideation intent or plan. Perceptions: Patient denies any auditory or visual hallucinations. Though content/process: There is no evidence of any delusional thought content and thought process is linear and goal-directed. More future oriented Memory and concentration: AOX3, grossly intact for the purposes of this session. Can spell "WORLD" backwards correctly. Judgment and insight: Chronically poor, however has improved with guarded prognosis Impression: Suicide attempt via OD on insulin Major depressive disorder, recurrent, moderate Nicotine dependence Plan: -Continue with discharge today as patient has improved and stabilized psychiatrically and is not currently an imminent threat to themself and/or others. -Continue medications: Zoloft 150 mg daily -Patient was counseled on the need for medication compliance and appropriate follow-up at mental health and also primary care for medical issues. Patient verbalized understanding and agreed. -Social work to help coordinate patients discharge today arrange for and conduct family meeting to ensure safety upon discharge and answer any questions/concerns. also to ensure safe home environment that guns/weapons are either removed from the home or locked away. Social work also to arrange for patients follow up appointments with [facility] for psychiatric care along with follow up with primary care provider. -Patient counseled on abstaining from recreational drugs and marijuana and alcohol. Was informed/educated on the adverse effects on their physical and mental health. Patient verbally agreed and understood. Patient declined nicotine patches as he has no desire to refrain from smoking at the moment, appears precontemplative. -Patient was instructed to return to the hospital or seek immediate medical care if their psychiatric or medical symptoms do worsen or reoccur. Abnormal Labs 04/02/24 04/02/24 04/02/24 21:24 21:24 21:24 WBC 18.6 H Neutrophils # 15.1 H Monocytes # 1.4 H VBG pH 7.29 L VBG pCO2 56 H Sodium 136 L Creatinine 0.58 L POC Glucose (mg/dL) Hemoglobin A1c Urine Glucose (UA) Triple Phos Crystals Urine Bacteria Urine Mucus 04/02/24 04/02/24 04/02/24 21:30 23:31 23:53 WBC Neutrophils # Monocytes # VBG pH VBG pCO2 Sodium Creatinine POC Glucose (mg/dL) 135 H 158 H Hemoglobin A1c Urine Glucose (UA) 3+ H Triple Phos Crystals Rare H Urine Bacteria Rare H Urine Mucus Rare H 04/03/24 04/03/24 04/03/24 01:46 02:36 07:56 WBC Neutrophils # Monocytes # VBG pH VBG pCO2 Sodium Creatinine POC Glucose (mg/dL) 261 H 294 H 347 H Hemoglobin A1c Urine Glucose (UA) Triple Phos Crystals Urine Bacteria Urine Mucus 04/03/24 04/03/24 04/03/24 08:55 13:04 15:34 WBC Neutrophils # Monocytes # VBG pH VBG pCO2 Sodium Creatinine POC Glucose (mg/dL) 132 H 331 H Hemoglobin A1c 8.9 H Urine Glucose (UA) Triple Phos Crystals Urine Bacteria Urine Mucus 04/03/24 04/03/24 04/04/24 17:35 20:21 08:14 WBC Neutrophils # Monocytes # VBG pH VBG pCO2 Sodium Creatinine POC Glucose (mg/dL) 138 H 217 H 42 L* Hemoglobin A1c Urine Glucose (UA) Triple Phos Crystals Urine Bacteria Urine Mucus 04/04/24 04/04/24 04/04/24 08:16 08:31 09:02 WBC Neutrophils # Monocytes # VBG pH VBG pCO2 Sodium Creatinine POC Glucose (mg/dL) 42 L* 63 L 163 H Hemoglobin A1c Urine Glucose (UA) Triple Phos Crystals Urine Bacteria Urine Mucus 04/04/24 04/04/24 04/04/24 12:50 17:47 19:42 WBC Neutrophils # Monocytes # VBG pH VBG pCO2 Sodium Creatinine POC Glucose (mg/dL) 250 H 135 H 136 H Hemoglobin A1c Urine Glucose (UA) Triple Phos Crystals Urine Bacteria Urine Mucus 04/05/24 04/05/24 04/05/24 01:06 07:47 12:41 WBC Neutrophils # Monocytes # VBG pH VBG pCO2 Sodium Creatinine POC Glucose (mg/dL) 172 H 48 L* 226 H Hemoglobin A1c Urine Glucose (UA) Triple Phos Crystals Urine Bacteria Urine Mucus 04/05/24 04/05/24 04/05/24 15:30 17:14 19:43 WBC Neutrophils # Monocytes # VBG pH VBG pCO2 Sodium Creatinine POC Glucose (mg/dL) 490 H 438 H 279 H Hemoglobin A1c Urine Glucose (UA) Triple Phos Crystals Urine Bacteria Urine Mucus 04/05/24 04/06/24 04/06/24 21:09 05:48 07:33 WBC Neutrophils # Monocytes # VBG pH VBG pCO2 Sodium Creatinine POC Glucose (mg/dL) 205 H 42 L* 237 H Hemoglobin A1c Urine Glucose (UA) Triple Phos Crystals Urine Bacteria Urine Mucus Vital Signs Temp 97.1 F L 04/04/24 10:18 Pulse 76 04/06/24 06:42 Resp 17 04/04/24 10:18 BP 113/74 04/06/24 06:42 Pulse Ox 98 04/04/24 10:18 FiO2 Allergies Allergy/AdvReac Type Severity Reaction Status Date / Time amphetamine aspartate AdvReac very Verified 04/02/24 21:14 [From Adderall] violent amphetamine sulfate AdvReac very Verified 04/02/24 21:14 [From Adderall] violent dextroamphetamine saccharate AdvReac very Verified 04/02/24 21:14 [From Adderall] violent dextroamphetamine sulfate AdvReac very Verified 04/02/24 21:14 [From Adderall] violent Patient Condition at Discharge: Stable Plan - Discharge Summary Discharge Rx Participant: No New Discharge Prescriptions: New Bacitracin Zinc Oint 1 applic TOPICAL Q8HR 30 Days #28 gm INSULIN ASPART (NovoLOG) [NovoLOG (formulary)] 10 unit SQ AC-TID each Sertraline [Zoloft] 150 mg PO DAILY 30 Days #90 tab INSULIN ASPART (NovoLOG) [NovoLOG (formulary)] 0 unit SQ ACHS each Discontinued Insulin Aspart (For Pump) [NovoLOG (For Pump)] 0.01 unit SQ-PUMP DIRECTED Sertraline [Zoloft] 100 mg PO DAILY Sertraline [Zoloft] 25 mg PO DAILY Discharge Medication List Bacitracin Zinc Oint 1 applic TOPICAL Q8HR 30 Days #28 gm 04/06/24 [Rx] INSULIN ASPART (NovoLOG) [NovoLOG (formulary)] 0 unit SQ ACHS each 04/06/24 [Rx] INSULIN ASPART (NovoLOG) [NovoLOG (formulary)] 10 unit SQ AC-TID each 04/06/24 [Rx] Sertraline [Zoloft] 150 mg PO DAILY 30 Days #90 tab 04/06/24 [Rx] Follow up Appointment(s)/Referral(s): [facility] [Outside] - 04/10/24 1:00 pm (04-10-24 @ 1pm with Mary/ 04-11-24 @ 9:30am with Dr. Bolaños ) Brittany Beckwith MD [Primary Care Provider] - 1-2 days Patient Instructions/Handouts: How to Stop Smoking (DC), Depression (DC) Activity/Diet/Wound Care/Special Instructions: [facility] Discharge Info Avoid the use of street drugs and alcohol. Take all medications as prescribed. When you are in need of refills on your medications, please contact your outpatient medical provider and/or outpatient psychiatrist. Please go to your scheduled outpatient appointments for aftercare treatment. If symptoms return or become worse, call the crisis line at or and/or visit the nearest emergency room for assistance. [place] [facility] Lifeline - call or text [phone]. Resume your diabetic regimen with insulin pump per your primary care physician. Discharge Disposition: HOME SELF-CARE
== END 2024-04-06 11:30 | disposition home or self-care (01) | DRG 885 ==
LOC: EC 21:07 → 3MHU 04-03 02:20
PROVIDERS: ADMIT Psychiatry & Neurology Psychiatry; ATTEND Psychiatry & Neurology Psychiatry
DX: F33.1 Major depressive disorder, recurrent, moderate (principal); E10.649 Type 1 diabetes mellitus with hypoglycemia without coma; F17.200 Nicotine dependence, unspecified, uncomplicated; F41.9 Anxiety disorder, unspecified; T38.3X2A Poisoning by insulin and oral hypoglycemic [antidiabetic] drugs, intentional self-harm, initial encounter; Z56.0 Unemployment, unspecified; Z79.4 Long term (current) use of insulin; Z79.899 Other long term (current) drug therapy; Z91.51 Personal history of suicidal behavior; Z96.41 Presence of insulin pump (external) (internal)
CPT/HCPCS: 36415; 80053; 80061; 80076; 81001; 82009; 82075; 82803; 83036; 83735; 83880; 84100; 84443; 84484; 85025; 85610; 85730; 87636; 93005; 96360; 96361; 99285

== ENCOUNTER 2024-04-25 05:34 | Emergency (ER) | payer MEDICAID, OTHER ==
[2024-04-25 05:39] LABS: Glucose,Whole Blood 106 mg/dL (70-110)
--- NOTE | 2024-04-25 06:23 | ED ---
Recheck HPI - General Chief Complaint: Recheck/Abnormal Lab/Rx Stated Complaint: abnormal labs Time Seen by Provider: 04/25/24 05:53 Source: patient, EMS, RN notes reviewed Mode of arrival: EMS Limitations: no limitations - History of Present Illness Initial Comments: 24-year-old male presents emergency department chief complaint of hyperglycemia. Patient states that he is usually on insulin pump but states that he ran out of his month supply states he gets a new prescription in 5 days. He states he has been using short acting insulin and states that he ran out of his glucometer strips so he [place] how much insulin he needed. Patient had hypoglycemia was given oral glucose and half amp of dextrose. Patient states he has no complaints at this time. - Related Data Previous Rx's Medication Instructions Recorded Bacitracin Zinc Oint 1 applic TOPICAL Q8HR 30 Days #28 04/06/24 gm INSULIN ASPART (NovoLOG) [NovoLOG 0 unit SQ ACHS each 04/06/24 (formulary)] INSULIN ASPART (NovoLOG) [NovoLOG 10 unit SQ AC-TID each 04/06/24 (formulary)] Sertraline [Zoloft] 150 mg PO DAILY 30 Days #90 tab 04/06/24 Allergies Allergy/AdvReac Type Severity Reaction Status Date / Time amphetamine aspartate AdvReac very Verified 04/02/24 21:14 [From Adderall] violent amphetamine sulfate AdvReac very Verified 04/02/24 21:14 [From Adderall] violent dextroamphetamine saccharate AdvReac very Verified 04/02/24 21:14 [From Adderall] violent dextroamphetamine sulfate AdvReac very Verified 04/02/24 21:14 [From Adderall] violent Review of Systems ROS Statement: Those systems with pertinent positive or pertinent negative responses have been documented in the HPI. ROS Other: All systems not noted in ROS Statement are negative. Past Medical History Past Medical History: Diabetes Mellitus Additional Past Medical History / Comment(s): hydrocephalus History of Any Multi-Drug Resistant Organisms: None Reported Past Surgical History: No Surgical Hx Reported Past Anesthesia/Blood Transfusion Reactions: No Reported Reaction Past Psychological History: ADD/ADHD, Depression Smoking Status: Current every day smoker Past Alcohol Use History: None Reported Past Drug Use History: Marijuana - Past Family History Father History Unknown: Yes General Exam Limitations: no limitations General appearance: alert, in no apparent distress Head exam: Present: atraumatic, normocephalic, normal inspection Eye exam: Present: normal appearance, PERRL, EOMI. Absent: scleral icterus, conjunctival injection, periorbital swelling ENT exam: Present: normal exam, normal oropharynx, mucous membranes moist Neck exam: Present: normal inspection, full ROM. Absent: tenderness, meningismus, lymphadenopathy Respiratory exam: Present: normal lung sounds bilaterally. Absent: respiratory distress, wheezes, rales, rhonchi, stridor Cardiovascular Exam: Present: regular rate, normal rhythm, normal heart sounds. Absent: systolic murmur, diastolic murmur, rubs, gallop, clicks Neurological exam: Present: alert, oriented X3, CN II-XII intact Skin exam: Present: warm, dry, intact, normal color. Absent: rash Course Vital Signs 04/25/24 04/25/24 04/25/24 05:36 07:30 09:37 Temperature 98.2 F 98.5 F Pulse Rate 79 67 68 Respiratory 18 20 16 Rate Blood Pressure 126/82 117/78 134/80 O2 Sat by Pulse 99 98 98 Oximetry Medical Decision Making - Medical Decision Making Was pt. sent in by a medical professional or institution (, PA, TYPE PROOF REPRODUCER, urgent care, hospital, or care home...) When possible be specific @ -No Did you speak to anyone other than the patient for history (EMS, parent, family, police, friend...)? What history was obtained from this source @ -No Did you review nursing and triage notes (agree or disagree)? Why? @ -I reviewed and agree with nursing and triage notes Were old charts reviewed (outside hosp., previous admission, EMS record, old EKG, old radiological studies, urgent care reports/EKG's, care home records)? Report findings @ -No old charts were reviewed Differential Diagnosis (chest pain, altered mental status, abdominal pain women, abdominal pain men, vaginal bleeding, weakness, fever, dyspnea, syncope, headache, dizziness, GI bleed, back pain, seizure, CVA, palpatations, mental health, musculoskeletal)? @ -Diabetes, hypoglycemia EKG interpreted by me (3pts min.). @ -None X-rays interpreted by me (1pt min.). @ -None done CT interpreted by me (1pt min.). @ -None done U/S interpreted by me (1pt. min.). @ -None done What testing was considered but not performed or refused? (CT, X-rays, U/S, labs)? Why? @ -None What meds were considered but not given or refused? Why? @ -None Did you discuss the management of the patient with other professionals (professionals i.e. Dr., PA, TYPE PROOF REPRODUCER, lab, RT, psych nurse, social research assistant, sap portal developer, teacher, seaman officer, block and case maker)? Give summary @ -No Was smoking cessation discussed for >3mins.? @ -No Was critical care preformed (if so, how long)? @ -No Were there social determinants of health that impacted care today? How? (Homelessness, low income, unemployed, alcoholism, drug addiction, transportation, low edu. Level, literacy, decrease access to med. care, intermediate, rehab)? @ -No Was there de-escalation of care discussed even if they declined (Discuss DNR or withdrawal of care, Hospice)? DNR status @ -No What co-morbidities impacted this encounter? (DM, HTN, Smoking, COPD, CAD, Cancer, CVA, ARF, Chemo, Hep., AIDS, mental health diagnosis, sleep apnea, morbid obesity)? @Diabetes Was patient admitted / discharged? Hospital course, mention meds given and route, prescriptions, significant lab abnormalities, going to OR and other pertinent info. @ -Discharge patient presented after hypoglycemic event due to medication noncompliant. Patient did have a supervisor statement clerks discussed with patient and has appointment coming up and was given supplies. Undiagnosed new problem with uncertain prognosis? @ -No Drug Therapy requiring intensive monitoring for toxicity (Heparin, Nitro, Insulin, Cardizem)? @ -No Were any procedures done? @ -No Diagnosis/symptom? @ -Hypoglycemia Acute, or Chronic, or Acute on Chronic? @ -Acute Uncomplicated (without systemic symptoms) or Complicated (systemic symptoms)? @ -Complicated Side effects of treatment? @ -No Exacerbation, Progression, or Severe Exacerbation? @ -No Poses a threat to life or bodily function? How? (Chest pain, [place], [place], pneumonia, PE, COPD, DKA, ARF, appy, cholecystitis, CVA, Diverticulitis, Homicidal, Suicidal, threat to staff... and all critical care pts) @ -No - Lab Data Lab Results 04/25/24 04/25/24 Range/Units 05:37 07:10 POC Glucose (mg/dL) 106 270 H (70-110) mg/dL POC Glu Recording Artist ID Rosalee Aldrich September Clinical Impression: Hypoglycemia Disposition: HOME SELF-CARE Condition: Stable Additional Instructions: Go directly to Dr Velez's office and ask about supplies for dexcom and insulin pump. If your dexcom adhesive comes off early contact the company for a replacement and inquire about overlay, to reinforce and not loosen the adherence to skin. Please return to the Emergency Department if symptoms worsen or any other concerns. Is patient prescribed a controlled substance at d/c from ED?: No Referrals: Pj Velez MD [REFERRING] - Brittany Beckwith MD [Primary Care Provider] - 1-2 days Forms: Adult Foster Long Term List Time of Disposition: 09:17
[2024-04-25 07:12] LABS: Glucose,Whole Blood 270 mg/dL (70-110)
[2024-04-25] MEDS: INSULIN ASPART (NovoLOG) 100 UNIT/ML VIAL SQ ONE (08:33)
[2024-04-25 09:37] VITALS: BP 134/80; PULSE 68; RESP 16; TEMP 98.5
== END 2024-04-25 09:37 | disposition home or self-care (01) ==
LOC: EC 05:34
CPT/HCPCS: 36415; 99283

== ENCOUNTER 2024-08-23 10:22 | Emergency (ER) | payer OTHER ==
[2024-08-23 10:29] LABS: Glucose,Whole Blood 71 mg/dL (70-110)
[2024-08-23 10:35] VITALS: TEMP 98
[2024-08-23 11:01] LABS: Glucose,Whole Blood 113 mg/dL (70-110)
[2024-08-23 12:03] LABS: Glucose,Whole Blood 250 mg/dL (70-110)
--- NOTE | 2024-08-23 12:06 | ED ---
General Adult HPI - General Chief complaint: Recheck/Abnormal Lab/Rx Stated complaint: low blood sugar Time Seen by Provider: 08/23/24 10:26 Source: patient, EMS, RN notes reviewed Mode of arrival: EMS Limitations: no limitations - History of Present Illness Initial comments: 24-year-old male presents emerged part via EMS chief complaint of hyperglycemia. Patient states he was not feeling well he tried to call for help but states that he came very disorientated folic his heart was racing and laid himself down. Patient found by EMS with hypoglycemia. Patient given glucose and symptoms improved and resolved he is asymptomatic currently. Patient has an insulin pump on he states that did not eat much this morning gave himself insulin - Related Data Previous Rx's Medication Instructions Recorded Escitalopram [Lexapro] 10 mg PO DAILY 30 Days #30 tab 08/04/24 Nicotine 14Mg/24Hr Patch [Habitrol] 1 patch TRANSDERM DAILY patch 08/04/24 Nicotine Gum (Polacrilex) 2 mg BUCCAL Q4HR PRN pieceofgum 08/04/24 [Nicorette] traZODone HCL [Desyrel] 50 mg PO HS PRN 30 Days #30 tab 08/04/24 Allergies Allergy/AdvReac Type Severity Reaction Status Date / Time amphetamine aspartate AdvReac very Verified 08/23/24 10:35 [From Adderall] violent amphetamine sulfate AdvReac very Verified 08/23/24 10:35 [From Adderall] violent dextroamphetamine saccharate AdvReac very Verified 08/23/24 10:35 [From Adderall] violent dextroamphetamine sulfate AdvReac very Verified 08/23/24 10:35 [From Adderall] violent Review of Systems ROS Statement: Those systems with pertinent positive or pertinent negative responses have been documented in the HPI. ROS Other: All systems not noted in ROS Statement are negative. Past Medical History Past Medical History: Diabetes Mellitus Additional Past Medical History / Comment(s): hydrocephalus History of Any Multi-Drug Resistant Organisms: None Reported Past Surgical History: No Surgical Hx Reported Past Anesthesia/Blood Transfusion Reactions: No Reported Reaction Past Psychological History: ADD/ADHD, Bipolar, Depression Smoking Status: Current every day smoker Past Alcohol Use History: None Reported Past Drug Use History: Marijuana - Past Family History Father History Unknown: Yes General Exam Limitations: no limitations General appearance: alert, in no apparent distress Head exam: Present: atraumatic, normocephalic, normal inspection Eye exam: Present: normal appearance, PERRL, EOMI. Absent: scleral icterus, conjunctival injection, periorbital swelling ENT exam: Present: normal exam, normal oropharynx, mucous membranes moist Neck exam: Present: normal inspection, full ROM. Absent: tenderness, meningismus, lymphadenopathy Respiratory exam: Present: normal lung sounds bilaterally. Absent: respiratory distress, wheezes, rales, rhonchi, stridor Cardiovascular Exam: Present: regular rate, normal rhythm, normal heart sounds. Absent: systolic murmur, diastolic murmur, rubs, gallop, clicks GI/Abdominal exam: Present: soft, normal bowel sounds. Absent: distended, tenderness, guarding, rebound, rigid Neurological exam: Present: alert, oriented X3, CN II-XII intact Skin exam: Present: warm, dry, intact, normal color. Absent: rash Course Vital Signs 08/23/24 08/23/24 10:32 12:14 Temperature 98 F Pulse Rate 75 72 Respiratory 20 16 Rate Blood Pressure 125/75 106/74 O2 Sat by Pulse 97 99 Oximetry Medical Decision Making - Medical Decision Making Was pt. sent in by a medical professional or institution (, PA, [employer] D[employer]ER, urgent care, hospital, or [facility]...) When possible be specific @ -No Did you speak to anyone other than the patient for history (EMS, parent, family, police, friend...)? What history was obtained from this source @ -No Did you review nursing and triage notes (agree or disagree)? Why? @ -I reviewed and agree with nursing and triage notes Were old charts reviewed (outside hosp., previous admission, EMS record, old EKG, old radiological studies, urgent care reports/EKG's, [facility] records)? Report findings @ -No old charts were reviewed Differential Diagnosis (chest pain, altered mental status, abdominal pain women, abdominal pain men, vaginal bleeding, weakness, fever, dyspnea, syncope, headache, dizziness, GI bleed, back pain, seizure, CVA, palpatations, mental health, musculoskeletal)? @ -Hypoglycemia, medication reaction EKG interpreted by me (3pts min.). @ -None X-rays interpreted by me (1pt min.). @ -None done CT interpreted by me (1pt min.). @ -None done U/S interpreted by me (1pt. min.). @ -None done What testing was considered but not performed or refused? (CT, X-rays, U/S, labs)? Why? @ -None What meds were considered but not given or refused? Why? @ -None Did you discuss the management of the patient with other professionals (professionals i.e. DrDar, PA, [employer], lab, RT, psych nurse, 7th grade social studies teacher, gray tender, teacher, juvenile corrections officer, case checker)? Give summary @ -No Was smoking cessation discussed for >3mins.? @ -No Was critical care preformed (if so, how long)? @ -No Were there social determinants of health that impacted care today? How? (Homelessness, low income, unemployed, alcoholism, drug addiction, transportation, low edu. Level, literacy, decrease access to med. care, detention, rehab)? @ -No Was there de-escalation of care discussed even if they declined (Discuss DNR or withdrawal of care, Hospice)? DNR status @ -No What co-morbidities impacted this encounter? (DM, HTN, Smoking, COPD, CAD, Cancer, CVA, ARF, Chemo, Hep., AIDS, mental health diagnosis, sleep apnea, morbid obesity)? @ -None Was patient admitted / discharged? Hospital course, mention meds given and route, prescriptions, significant lab abnormalities, going to OR and other pertinent info. @ -[Discharged patient was observed for couple hours without acute complaints or issues. Patient tolerate oral intake will be discharged in stable condition return parameters jesus. Undiagnosed new problem with uncertain prognosis? @ -No Drug Therapy requiring intensive monitoring for toxicity (Heparin, Nitro, Insulin, Cardizem)? @ -No Were any procedures done? @ -No Diagnosis/symptom? @ -Hypoglycemia Acute, or Chronic, or Acute on Chronic? @Acute Uncomplicated (without systemic symptoms) or Complicated (systemic symptoms)? @ -Uncomplicated Side effects of treatment? @ -No Exacerbation, Progression, or Severe Exacerbation? @ -No Poses a threat to life or bodily function? How? (Chest pain, USA, [place], pneumonia, PE, COPD, DKA, ARF, appy, cholecystitis, CVA, Diverticulitis, Homicidal, Suicidal, threat to staff... and all critical care pts) @ -No - Lab Data Lab Results 08/23/24 08/23/24 08/23/24 Range/Units 10:27 10:59 12:01 POC Glucose (mg/dL) 71 113 H 250 H (70-110) mg/dL POC Glu Relay Shop Tester ID Gary Henley Chiara Lawrence Disposition Clinical Impression: Hypoglycemia Disposition: HOME SELF-CARE Condition: Stable Instructions (If sedation given, give patient instructions): Hypoglycemia in a Person with Diabetes (DC) Additional Instructions: Please return to the Emergency Department if symptoms worsen or any other concerns. Is patient prescribed a controlled substance at d/c from ED?: No Referrals: Brittany Beckwith MD [Primary Care Provider] - 1-2 days Forms: [employer] Time of Disposition: 12:06
[2024-08-23 12:16] VITALS: BP 106/74; PULSE 72; RESP 16
== END 2024-08-23 12:16 | disposition home or self-care (01) ==
LOC: EC 10:22
DX: E11.649 Type 2 diabetes mellitus with hypoglycemia without coma (principal); F17.200 Nicotine dependence, unspecified, uncomplicated; Z79.4 Long term (current) use of insulin; Z88.8 Allergy status to other drugs, medicaments and biological substances
CPT/HCPCS: 36415; 99285

== ENCOUNTER 2024-11-06 13:47 | Inpatient (IN) | payer OTHER ==
[2024-11-06 13:57] VITALS: TEMP 98.3
--- NOTE | 2024-11-06 14:04 | ED ---
General Adult HPI - General Stated complaint: Hyperglycemia Time Seen by Provider: 11/06/24 13:49 Source: patient, RN notes reviewed Mode of arrival: EMS Limitations: no limitations - History of Present Illness Initial comments: Patient is a 24-year-old male present to the emergency department with concerns with hyperglycemia. Patient ate ice cream last night and blood sugar has been high in his meter since that time. Patient does use an insulin pump. Patient has had some polyuria and polydipsia since that time. No recent illness. - Related Data Home Medications Medication Instructions Recorded Confirmed Insulin Aspart (For Pump) [NovoLOG 0.01 unit SQ-PUMP CONTINUOUS 11/06/24 11/06/24 (For Pump)] Allergies Allergy/AdvReac Type Severity Reaction Status Date / Time amphetamine aspartate AdvReac very Verified 11/06/24 15:16 [From Adderall] violent amphetamine sulfate AdvReac very Verified 11/06/24 15:16 [From Adderall] violent dextroamphetamine saccharate AdvReac very Verified 11/06/24 15:16 [From Adderall] violent dextroamphetamine sulfate AdvReac very Verified 11/06/24 15:16 [From Adderall] violent Review of Systems ROS Statement: Those systems with pertinent positive or pertinent negative responses have been documented in the HPI. ROS Other: All systems not noted in ROS Statement are negative. Constitutional: Denies: fever Eyes: Denies: eye pain ENT: Denies: ear pain Respiratory: Denies: cough, dyspnea Cardiovascular: Denies: chest pain Endocrine: Reports: fatigue, polydipsia, polyuria Gastrointestinal: Denies: abdominal pain Past Medical History Past Medical History: Diabetes Mellitus Additional Past Medical History / Comment(s): hydrocephalus History of Any Multi-Drug Resistant Organisms: None Reported Past Surgical History: No Surgical Hx Reported Past Anesthesia/Blood Transfusion Reactions: No Reported Reaction Past Psychological History: ADD/ADHD, Bipolar, Depression Smoking Status: Current every day smoker Past Alcohol Use History: None Reported Past Drug Use History: Marijuana - Past Family History Father History Unknown: Yes General Exam Limitations: no limitations General appearance: alert, in no apparent distress Head exam: Present: normocephalic Eye exam: Present: normal appearance ENT exam: Present: normal oropharynx Neck exam: Present: normal inspection Respiratory exam: Present: normal lung sounds bilaterally Cardiovascular Exam: Present: regular rate, normal rhythm GI/Abdominal exam: Present: soft. Absent: tenderness Extremities exam: Present: normal inspection. Absent: pedal edema Neurological exam: Present: alert Psychiatric exam: Present: normal affect, normal mood Skin exam: Present: normal color Course Vital Signs 11/06/24 13:53 Temperature 98.3 F Pulse Rate 87 Respiratory 18 Rate Blood Pressure 122/68 O2 Sat by Pulse 97 Oximetry EKG Findings - EKG Results: EKG: interpreted by ERMD (Right axis. Incomplete right bundle branch block.), sinus rhythm, normal ST/T Medical Decision Making - Medical Decision Making Was pt. sent in by a medical professional or institution (, PA, RECESSING MACHINE OPERATOR, urgent care, hospital, or prison...) When possible be specific @ -No Did you speak to anyone other than the patient for history (EMS, parent, family, police, friend...)? What history was obtained from this source @ -No Did you review nursing and triage notes (agree or disagree)? Why? @ -I reviewed and agree with nursing and triage notes Were old charts reviewed (outside hosp., previous admission, EMS record, old EKG, old radiological studies, urgent care reports/EKG's, prison records)? Report findings @ -No old charts were reviewed Differential Diagnosis (chest pain, altered mental status, abdominal pain women, abdominal pain men, vaginal bleeding, weakness, fever, dyspnea, syncope, headache, dizziness, GI bleed, back pain, seizure, CVA, palpatations, mental health, musculoskeletal)? @ -Differential Weakness: Hypoglycemia, shock, sepsis, hyponatremia, anemia, infection, MT, ETOH, adverse medicine reaction, overdose, stroke, this is not meant to be an all-inclusive list. EKG interpreted by me (3pts min.). @ -As above X-rays interpreted by me (1pt min.). @ -Chest x-ray without acute abnormality CT interpreted by me (1pt min.). @ -None done U/S interpreted by me (1pt. min.). @ -None done What testing was considered but not performed or refused? (CT, X-rays, U/S, labs)? Why? @ -None What meds were considered but not given or refused? Why? @ -None Did you discuss the management of the patient with other professionals (professionals i.e. , PA, RECESSING MACHINE OPERATOR, lab, RT, psych nurse, social problems specialist, sign erector, teacher, correctional officer captain, egg caser)? Give summary @ -Case was discussed with Dr. Caridad Stallworth, who will admit covering Dr. Greg Wallis Was smoking cessation discussed for >3mins.? @ -No Was critical care preformed (if so, how long)? @ -31 minutes critical care time Were there social determinants of health that impacted care today? How? (Homelessness, low income, unemployed, alcoholism, drug addiction, transportation, low edu. Level, literacy, decrease access to med. care, half-way, rehab)? @ -No Was there de-escalation of care discussed even if they declined (Discuss DNR or withdrawal of care, Hospice)? DNR status @ -No What co-morbidities impacted this encounter? (DM, HTN, Smoking, COPD, CAD, C ancer, CVA, ARF, Chemo, Hep., AIDS, mental health diagnosis, sleep apnea, morbid obesity)? @ -History of insulin-dependent diabetes Was patient admitted / discharged? Hospital course, mention meds given and route, prescriptions, significant lab abnormalities, going to OR and other pertinent info. @ -Patient presents with hyperglycemia. Polyuria polydipsia. Patient in DKA on further evaluation. Patient will be admitted with IV insulin drip. Patient updated. [place] orders written. Undiagnosed new problem with uncertain prognosis? @ -No Drug Therapy requiring intensive monitoring for toxicity (Heparin, Nitro, Insulin, Cardizem)? @ -No Were any procedures done? @ -No Diagnosis/symptom? @ -Diabetic ketoacidosis Acute, or Chronic, or Acute on Chronic? @ -Acute Uncomplicated (without systemic symptoms) or Complicated (systemic symptoms)? @ -Default Side effects of treatment? @ -No Exacerbation, Progression, or Severe Exacerbation? @ -No Poses a threat to life or bodily function? How? (Chest pain, USA, MT, pneumonia, PE, COPD, DKA, ARF, appy, cholecystitis, CVA, Diverticulitis, Homicidal, Suicidal, threat to staff... and all critical care pts) @ -Threat to metabolic function - Lab Data Result diagrams: 11/06/24 14:07 11/06/24 14:07 Lab Results 11/06/24 11/06/24 11/06/24 Range/Units 14:07 14:07 14:07 WBC 20.11 H (4.50-10.00) 10*3/uL RBC 4.75 (4.40-5.60) 10*6/uL Hgb 14.4 (13.0-17.0) g/dL Hct 40.1 (39.6-50.0) % MCV 84.4 (80.0-97.0) fL MCH 30.3 (27.0-32.0) pg MCHC 35.9 (32.0-37.0) g/dL Plt Count 414 (140-440) 10*3/uL MPV 9.4 L (9.5-12.2) fL Immature Gran % (Auto) 0.6 % Neutrophils % 86.9 % Lymphocytes % 6.5 % Monocytes % 5.3 % Eosinophils % 0.1 % Basophils % 0.6 % Immature Gran # 0.12 H (0.00-0.04) 10*3/uL Neutrophils # 17.47 H (1.80-7.70) 10*3/uL Lymphocytes # 1.30 (0.90-5.00) 10*3/uL Monocytes # 1.06 H (0.20-1.00) 10*3/uL Eosinophils # 0.03 L (0.04-0.35) 10*3/uL Basophils # 0.13 H (0.00-0.10) 10*3/uL Sodium 128 L (137-145) mmol/L Potassium 5.2 H (3.5-5.1) mmol/L Chloride 97 L (98-107) mmol/L Carbon Dioxide 14 L (22-30) mmol/L Anion Gap 17 mmol/L BUN 24 H (9-20) mg/dL Creatinine 0.69 (0.66-1.25) mg/dL Est GFR (CKD-EPI)AfAm >90 (>60 ml/min/1.73 sqM) Est GFR (CKD-EPI)NonAf >90 (>60 ml/min/1.73 sqM) Glucose 420 H (74-99) mg/dL POC Glucose (mg/dL) (70-110) mg/dL POC Glu It Professional ID Calcium 10.3 H (8.4-10.2) mg/dL Total Bilirubin 1.4 H (0.2-1.3) mg/dL AST 24 (17-59) U/L ALT 18 (4-49) U/L Alkaline Phosphatase 121 (38-126) U/L Total Protein 7.6 (6.3-8.2) g/dL Albumin 4.6 (3.5-5.0) g/dL Urine Color Colorless Urine Appearance Clear (Clear) Urine pH 5.0 (5.0-8.0) Ur Specific [place] 1.027 (1.001-1.035) Urine Protein Negative (Negative) Urine Glucose (UA) 4+ H (Negative) Urine Ketones 3+ H (Negative) Urine Blood Negative (Negative) Urine Nitrite Negative (Negative) Urine Bilirubin Negative (Negative) Urine Urobilinogen <2.0 (<2.0) mg/dL Ur Leukocyte Esterase Negative (Negative) Acetone, Qual Positive (Negative) 11/06/24 11/06/24 Range/Units 14:14 16:04 WBC (4.50-10.00) 10*3/uL RBC (4.40-5.60) 10*6/uL Hgb (13.0-17.0) g/dL Hct (39.6-50.0) % MCV (80.0-97.0) fL MCH (27.0-32.0) pg MCHC (32.0-37.0) g/dL Plt Count (140-440) 10*3/uL MPV (9.5-12.2) fL Immature Gran % (Auto) % Neutrophils % % Lymphocytes % % Monocytes % % Eosinophils % % Basophils % % Immature Gran # (0.00-0.04) 10*3/uL Neutrophils # (1.80-7.70) 10*3/uL Lymphocytes # (0.90-5.00) 10*3/uL Monocytes # (0.20-1.00) 10*3/uL Eosinophils # (0.04-0.35) 10*3/uL Basophils # (0.00-0.10) 10*3/uL Sodium (137-145) mmol/L Potassium (3.5-5.1) mmol/L Chloride (98-107) mmol/L Carbon Dioxide (22-30) mmol/L Anion Gap mmol/L BUN (9-20) mg/dL Creatinine (0.66-1.25) mg/dL Est GFR (CKD-EPI)AfAm (>60 ml/min/1.73 sqM) Est GFR (CKD-EPI)NonAf (>60 ml/min/1.73 sqM) Glucose (74-99) mg/dL POC Glucose (mg/dL) 394 H 256 H (70-110) mg/dL POC Glu It Professional ID Kenny Alva Calcium (8.4-10.2) mg/dL Total Bilirubin (0.2-1.3) mg/dL AST (17-59) U/L ALT (4-49) U/L Alkaline Phosphatase (38-126) U/L Total Protein (6.3-8.2) g/dL Albumin (3.5-5.0) g/dL Urine Color Urine Appearance (Clear) Urine pH (5.0-8.0) Ur Specific [place] (1.001-1.035) Urine Protein (Negative) Urine Glucose (UA) (Negative) Urine Ketones (Negative) Urine Blood (Negative) Urine Nitrite (Negative) Urine Bilirubin (Negative) Urine Urobilinogen (<2.0) mg/dL Ur Leukocyte Esterase (Negative) Acetone, Qual (Negative) Disposition Clinical Impression: Diabetic ketoacidosis Disposition: ADMITTED IP TO THIS HOSP Is patient prescribed a controlled substance at d/c from ED?: No Referrals: Brittany Beckwith MD [Primary Care Provider] - 1-2 days Time of Disposition: 16:11
[2024-11-06 14:11] LABS: Basophils # (A) 0.13 10*3/uL (0.00-0.10); Basophils % (A) 0.6 %; Eosinophils # (A) 0.03 10*3/uL (0.04-0.35); Eosinophils % (A) 0.1 %; HCT 40.1 % (39.6-50.0); HGB 14.4 g/dL (13.0-17.0); Lymphocytes % (A) 6.5 %; MCH 30.3 pg (27.0-32.0); MCHC 35.9 g/dL (32.0-37.0); MCV 84.4 fL (80.0-97.0); Mean Platelet Volume 9.4 fL (9.5-12.2); Monocytes # (A) 1.06 10*3/uL (0.20-1.00); Monocytes % (A) 5.3 %; Neutrophils # (A) 17.47 10*3/uL (1.80-7.70); Neutrophils % (A) 86.9 %; Platelet Count 414 10*3/uL (140-440); RBC 4.75 10*6/uL (4.40-5.60); RDW 12.3 % (11.5-14.5); WBC 20.11 10*3/uL (4.50-10.00)
[2024-11-06 14:13] LABS: Appearance,Urine Clear (Clear); Bilirubin,Urine Negative (Negative); Blood,Urine Negative (Negative); Color,Urine Colorless; Leukocyte Esterase,Urine Negative (Negative); Nitrite,Urine Negative (Negative); Protein,Urine Negative (Negative); Specific Gravity,Urine 1.027 (1.001-1.035); Urobilinogen,Urine <2.0 mg/dL (<2.0)
[2024-11-06 14:15] LABS: Glucose,Whole Blood 394 mg/dL (70-110)
[2024-11-06 14:23] LABS: ALT 18 U/L (4-49); AST 24 U/L (17-59); African American GFR (CKD) >90 (>60 ml/min/1.73 sqM); Albumin 4.6 g/dL (3.5-5.0); Alkaline Phosphatase 121 U/L (38-126); Anion Gap 17 mmol/L; Blood Urea Nitrogen 24 mg/dL (9-20); Calcium 10.3 mg/dL (8.4-10.2); Carbon Dioxide 14 mmol/L (22-30); Chloride 97 mmol/L (98-107); Glucose 420 mg/dL (74-99); Non-African American GFR(CKD) >90 (>60 ml/min/1.73 sqM); Potassium 5.2 mmol/L (3.5-5.1); Sodium 128 mmol/L (137-145); Total Bilirubin 1.4 mg/dL (0.2-1.3); Total Protein 7.6 g/dL (6.3-8.2)
[2024-11-06 14:29] LABS: Ketones,Urine 3+ (Negative)
[2024-11-06 14:30] LABS: Glucose,Urine (UA) 4+ (Negative)
[2024-11-06] MEDS: SODIUM CHLORIDE 0.9% 1,000 ML IV ONE ×2 (14:43→16:43)
[2024-11-06] MEDS: INSULIN REGULAR BOLUS (FROM DRIP BAG) IV ONE (14:48)
[2024-11-06] MEDS: INSULIN REGULAR 100 UNIT in SODIUM CHLORIDE 0.9% 100 ML IV SCH (14:48)
[2024-11-06] MEDS: SODIUM CHLORIDE 0.9% 1,000 ML IV SCH ×2 (15:45→16:47)
--- NOTE | 2024-11-06 15:49 | XR ---
EXAMINATION TYPE: XR chest 2V DATE OF EXAM: 11/06/2024 3:43 PM COMPARISON: 04/13/2023 CLINICAL INDICATION: Male, 24 years old with history of Weakness, , TECHNIQUE: PA and lateral views FINDINGS: The cardiomediastinal silhouette, aorta, and pulmonary vasculature are within normal limits. There is some streaky perihilar densities which may be due to overlying soft tissue. No consolidation or pleu ral effusion. IMPRESSION: Some streaky perihilar densities may be technical. Correlate for possible bronchitis or chronic asthm a. Otherwise, no acute process seen. [facility], Workstation: [facility], 11/06/2024 3:47 PM
[2024-11-06 16:06] LABS: Glucose,Whole Blood 256 mg/dL (70-110)
[2024-11-06] MEDS: D5-0.45% NACL WITH KCL 20MEQ/L 1,000 ML IV SCH (16:43)
[2024-11-06 17:02] LABS: Glucose,Whole Blood 225 mg/dL (70-110)
[2024-11-06 18:14] LABS: Glucose,Whole Blood 209 mg/dL (70-110)
[2024-11-06 18:42] LABS: Glucose,Whole Blood 185 mg/dL (70-110)
[2024-11-06 19:22] VITALS: BP 123/79; PULSE 98; RESP 20
== END 2024-11-06 19:47 | disposition left against medical advice (07) | DRG 639 ==
LOC: EC 13:47 → 3SCARD 16:12
PROVIDERS: ADMIT Internal Medicine; ATTEND Internal Medicine
DX: E11.10 Type 2 diabetes mellitus with ketoacidosis without coma (principal); F17.200 Nicotine dependence, unspecified, uncomplicated; Z96.41 Presence of insulin pump (external) (internal); Z79.4 Long term (current) use of insulin
CPT/HCPCS: 36415; 71046; 80053; 81003; 82009; 85025; 93005; 96360; 96361; 99291